=== PATIENT | male | born 1950 | race Caucasian/White ===

== ENCOUNTER 2024-10-09 10:53 | Inpatient (IN) | payer MEDICARE, OTHER, SELFPAY ==
[2024-10-09] VITALS (8 sets, daily range): BP systolic 133–168; BP diastolic 61–77; PULSE 54–62; RESP 16–18; TEMP 36.7–36.9; O2SAT 97–100
--- NOTE | 2024-10-09 13:26 | ED_ITS ---
HPI - Extremity Problem 2 General: Chief complaint: Extremity Problem,Nontraumatic Stated complaint: abd pain Time Seen by Provider: 10/09/24 13:25 History of Present Illness: 74-year-old male presents emergency room complaining of pain and swelling in his right foot. 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 He did have open reduction internal fixation on that foot when he was in [place] evidently about 3 years ago. He is unsure whether or not he has had a fever. He has had some abdominal discomfort which she has tolerated related to constipation. Its improved now. Denies any vomiting or diarrhea. No chest pain or shortness of breath Associated symptoms: Deny chest pain or fever(s) Related Data Home Medications Medication Instructions Recorded Confirmed amlodipine 2.5 mg tablet 2.5 mg PO DAILY 10/09/24 10/09/24 buprenorphine 8 mg-naloxone 2 mg 2 film buccal DAILY 10/09/24 10/09/24 sublingual film bupropion HCl 300 mg 24 hr tablet, 300 mg PO QAM 10/09/24 10/09/24 extended release dapagliflozin propanediol 10 mg 10 mg PO QAM 10/09/24 10/09/24 tablet (Farxiga) desvenlafaxine succinate 100 mg 100 mg PO DAILY 10/09/24 10/09/24 tablet,extended release 24 hr fluticasone propionate 50 2 spray intranasal DAILY 10/09/24 10/09/24 mcg/actuation nasal spray,suspension furosemide 40 mg tablet 40 mg PO DAILY 10/09/24 10/09/24 memantine 10 mg tablet 10 mg PO BID 10/09/24 10/09/24 ondansetron 4 mg disintegrating 4 mg PO Q8H 10/09/24 10/09/24 tablet pramipexole 0.5 mg tablet 0.5 mg PO BID 10/09/24 10/09/24 pregabalin 150 mg capsule 150 mg PO Q8H 10/09/24 10/09/24 tamsulosin 0.4 mg capsule 0.4 mg PO DAILY 10/09/24 10/09/24 Allergies Allergy/AdvReac Type Severity Reaction Status Date / Time No Known Allergies Allergy Verified 10/09/24 11:55 Review of Systems 2 Const: Denies: fever(s) or chills Card: Denies: chest pain Resp: Denies: dyspnea GI: Denies: abdominal pain : Denies: dysuria, urinary frequency or urinary urgency Musc: Reports: extremity pain and extremity swelling; Denies: neck pain or back pain PFSH ED 2 PFSH: Medical History Pressure ulcer BPH (benign prostatic hyperplasia) COPD (chronic obstructive pulmonary disease) Restless leg syndrome HTN (hypertension) Pre-diabetes Social History Smoking and tobacco/nicotine status: current every day tobacco/nicotine user Alcohol intake: never Substance/Drug Use: current Substance/Drug use frequency: Special occassions/opportunity only Substance/Drug use type: Marijuana Physical Exam 2 Const: GENERAL APPEARANCE: cooperative ORIENTATION/CONSCIOUSNESS: Yes awake, Yes oriented to person, Yes oriented to place and Yes oriented to time HENMT: COMMON NORMALS: normocephalic, atraumatic and hearing grossly normal bilaterally HEAD & SCALP: normocephalic and atraumatic Resp: COMMON NORMALS: normal respiratory effort, No retractions, No use of accessory muscles and clear to auscultation bilaterally AUSCULTATION: clear to auscultation bilaterally Cardio: COMMON NORMALS: regular rate, regular rhythm and No murmurs present (Cardio) RATE: regular rate RHYTHM: regular rhythm GI: COMMON NORMALS: Soft to palpation and No hepatosplenomegaly present A USCULTATION: Yes normoactive bowel sounds PALPATION: Yes Soft to palpation, No Tenderness to palpation present (GI), No Guarding due to palpation present (GI) and Yes No hepatosplenomegaly present Extremity: OTHER: Right foot is swollen way to the level of the malleolus. There is induration or redness the right second toe is extremely enlarged and swollen with a medial wound that is open I did not probe the wound at the time of exam. There is no purulent drainage. Skin is indurated. Right great toe is surgically absent. Neuro: SENSORIUM/ORIENTATION: Yes oriented to person, Yes oriented to place and Yes oriented to time Skin: COMMON NORMALS: no rashes or lesions noted GENERAL SKIN EXAM: no rashes or lesions noted Course 2 Vital Signs: Vital signs: Vital Signs Temperature 98.0 F 10/09/24 11:50 Pulse Rate 58 L 10/09/24 16:30 Respiratory Rate 18 10/09/24 15:24 Blood Pressure 145/73 10/09/24 16:30 Pulse Oximetry 100 10/09/24 16:30 Oxygen Delivery Me thod Nasal Cannula 10/09/24 15:24 Oxygen Flow Rate 3 10/09/24 15:24 MDM - Extremity (Nontraumatic) Medical Decision Making Admitted for cellulitis osteomyelitis cussed with the hospital started on linezolid and Zosyn. Consult podiatry. Dr. Marie seen the patient in the emergency room Lab Data I reviewed the patient's lab results. 10/09/24 13:23 10/09/24 13:23 Radiology Impressions Foot X-Ray 10/09/24 13:33 IMPRESSION: No evident radiographic findings of osteomyelitis. Given proximity of the wound to the phalanges of the 2nd digit, MRI would be warranted for more sensitive evaluation. Laboratory Results WBC 10.25 10^3/uL (3.29-11.43) 10/09/24 13:23 RBC 4.98 10^6/uL (3.85-5.65) 10/09/24 13:23 Hgb 13.60 g/dL (11.27-16.99) 10/09/24 13:23 Hct 43.0 % (37-53) 10/09/24 13:23 MCV 86.3 fl (82-101) 10/09/24 13:23 MCH 27.3 pg (27-33) 10/09/24 13:23 MCHC 31.6 g/dL (30-55) 10/09/24 13:23 RDW 14.9 % (12.1-15.1) 10/09/24 13:23 Plt Count 237 10^3/cmm (157-399) 10/09/24 13:23 MPV 9.9 fL (7.4-10.4) 10/09/24 13:23 Neut % (Auto) 82.9 % 10/09/24 13:23 Lymph % (Auto) 9.1 % 10/09/24 13:23 [place] % (Auto) 6.8 % 10/09/24 13:23 Eos % (Auto) 0.3 % 10/09/24 13:23 Baso % (Auto) 0.3 % 10/09/24 13:23 Neut # (Auto) 8.50 10^3/uL (1.8-7.7) H 10/09/24 13:23 Lymph # (Auto) 0.9 10^3/uL (0.8-4.8) 10/09/24 13:23 [place] # (Auto) 0.7 10^3/uL (0.2-0.9) 10/09/24 13:23 Eos # (Auto) 0.0 10^3/uL (0.0-0.8) 10/09/24 13:23 Baso # (Auto) 0.0 10^3/uL (0.0-0.1) 10/09/24 13:23 Nucleated RBC % (auto) 0 % 10/09/24 13:23 Nucleated RBCs # 0.0 /100WBC 10/09/24 13:23 ESR 35 mm/hr (0-10) H 10/09/24 13:23 Sodium 138 mmol/L (136-145) 10/09/24 13:23 Potassium 3.7 mmol/L (3.5-5.1) 10/09/24 13:23 Chloride 97 mmol/L (98-107) L 10/09/24 13:23 Carbon Dioxide 26 mmol/L (22-29) 10/09/24 13:23 Anion Gap 18.7 (5-19) 10/09/24 13:23 BUN 31 mg/dL (8-23) H 10/09/24 13:23 Creatinine 1.7 mg/dL (0.7-1.2) H 10/09/24 13:23 GFR Calculation Not Reportable 10/09/24 13:23 Glucose 92 mg/dL (65-115) 10/09/24 13:23 Estimat Average Glucose 100 10/09/24 13:23 Hemoglobin A1c 5.1 % (4.0-6.0) 10/09/24 13:23 Calculated Osmolality 292 mOsm/kg (285-295) 10/09/24 13:23 Lactic Acid 1.2 mmol/L (0.5-2.2) 10/09/24 13:23 Calcium 9.5 mg/dL (8.5-10.5) 10/09/24 13:23 Total Bilirubin 0.7 mg/dL (0.15-1.2) 10/09/24 13:23 AST 18 U/L (0-40) 10/09/24 13:23 ALT 19 U/L (0-41) 10/09/24 13:23 Alkaline Phosphatase 212 U/L (40-130) H 10/09/24 13:23 C-Reactive Protein 238.5 mg/L (0.0-4.9) H 10/09/24 13:23 Total Protein 8.2 g/dL (6.6-8.7) 10/09/24 13:23 Albumin 3.7 g/dL (3.5-5.2) 10/09/24 13:23 Globulin 4.5 g/dL (1.3-4.6) 10/09/24 13:23 Lipase 13 U/L (13-60) 10/09/24 13:23 Urine Color Yellow (Yellow) 10/09/24 13:23 Urine Appearance Clear (CLEAR) 10/09/24 13:23 Urine pH 6.0 (5-7) 10/09/24 13:23 Ur Specific [place] 1.024 (1.005-1.030) 10/09/24 13:23 Urine Protein 1+ (Negative) A 10/09/24 13:23 Urine Glucose (UA) 3+ (Normal) H 10/09/24 13:23 Urine Ketones 1+ (Negative) H 10/09/24 13:23 Urine Blood Negative (Negative) 10/09/24 13:23 Urine Nitrate Negative (Negative) 10/09/24 13:23 Urine Bilirubin Negative (Negative) 10/09/24 13:23 Urine Urobilinogen 1.0 mg/dL (Negative) 10/09/24 13:23 Ur Leukocyte Esterase Negative (Negative) 10/09/24 13:23 Urine RBC 0-4 /hpf (0-2) H 10/09/24 13:23 Urine WBC 5-10 /hpf (0-5) H 10/09/24 13:23 Ur Squamous Epith Cells 0-4 /hpf (0-5) H 10/09/24 13:23 Amorphous Sediment Not Reportable 10/09/24 13:23 Urine Bacteria 1+ /hpf (NONE) H 10/09/24 13:23 Urine Mucus 1+ /hpf 10/09/24 13:23 All radiology interpretation(s) finalized by discharge Discharge Plan Discharge Patient Disposition: Admitted As Inpatient Clinical Impression: Acute osteomyelitis of right foot, 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, Cellulitis of right foot, Diabetic foot infection Condition: Stable Prescriptions: No Action furosemide 40 mg tablet 40 mg PO DAILY amlodipine 2.5 mg tablet 2.5 mg PO DAILY pramipexole 0.5 mg tablet 0.5 mg PO BID tamsulosin 0.4 mg capsule 0.4 mg PO DAILY ondansetron 4 mg tablet,disintegrating 4 mg PO Q8H fluticasone propionate 50 mcg/actuation spray,suspension 2 spray INTRANASAL DAILY bupropion HCl 300 mg tablet extended release 24 hr 300 mg PO QAM memantine 10 mg tablet 10 mg PO BID pregabalin 150 mg capsule 150 mg PO Q8H desvenlafaxine succinate 100 mg tablet extended release 24 hr 100 mg PO DAILY buprenorphine-naloxone 8-2 mg film 2 film buccal DAILY dapagliflozin propanediol [Farxiga] 10 mg tablet 10 mg PO QAM Referrals: Arnaldo Farr DO [Emergency Provider] - Coding Level of Care Code ED Prevention Coordinator for [facility] [place]
[2024-10-09 13:29] LABS: Basophils % 0.3 %; Eosinophils % 0.3 %; Lymphocytes # 0.9 10^3/uL (0.8-4.8); Lymphocytes % 9.1 %; Mean Corpuscular HGB Conc 31.6 g/dL (30-55); Mean Corpuscular Hemoglobin 27.3 pg (27-33); Mean Corpuscular Volume 86.3 fl (82-101); Mean Platelet Volume 9.9 fL (7.4-10.4); Monocytes # 0.7 10^3/uL (0.2-0.9); Monocytes % 6.8 %; Neutrophils % 82.9 %; Nucleated Red Blood Cells % 0 %; Platelet Count 237 10^3/cmm (157-399); Red Blood Count 4.98 10^6/uL (3.85-5.65); Red Cell Distribution Width 14.9 % (12.1-15.1); White Blood Count 10.25 10^3/uL (3.29-11.43)
--- NOTE | 2024-10-09 13:33 | XRR_ITS ---
PROCEDURE INFORMATION: Exam: XR Right Foot Exam date and time: 10/09/2024 1:51 PM Age: 74 years old Clinical indication: Prior surgery; Surgery date: 6+ months; Patient HX: PT C/O right foot pain, PT had great toe removed. PT has small hole in 2nd toe on right foot. PT C/O toe pain x2 weeks. ; Additional info: Pain swelling open wound TECHNIQUE: Imaging protocol: Radiologic exam of the right foot. Views: 3 or more views. COMPARISON: No relevant prior studies available. FINDINGS: Bones/joints: Amputation changes of the 1st digit through the metatarsal. Dislocation of the 2nd digit at the DIP. Intact metallic plate spanning the navicular, 1st cuneiform, and base of the 2nd metatarsal. Residual osseous structures are intact. Negative for fracture. No irregular osseous erosions. Soft tissues: Wound noted at the 2nd toe in close approximation to the phalanges of the 2nd digit. Soft tissue swelling around the 2nd digit. XR/XR foot RT min 3V* [id number] IMPRESSION: No evident radiographic findings of osteomyelitis. Given proximity of the wound to the phalanges of the 2nd digit, MRI would be warranted for more sensitive evaluation.
[2024-10-09 13:44] LABS: Erythrocyte Sedimentation Rate 35 mm/hr (0-10)
[2024-10-09 13:46] LABS: Alanine Aminotransferase 19 U/L (0-41); Albumin Level 3.7 g/dL (3.5-5.2); Alkaline Phosphatase 212 U/L (40-130); Anion Gap 18.7 (5-19); Aspartate Amino Transferase 18 U/L (0-40); Blood Urea Nitrogen 31 mg/dL (8-23); Calcium 9.5 mg/dL (8.5-10.5); Carbon Dioxide 26 mmol/L (22-29); Chloride 97 mmol/L (98-107); Creatinine Clr Calc Pharmacy 49.9576; Globulin 4.5 g/dL (1.3-4.6); Glucose 92 mg/dL (65-115); Lipase 13 U/L (13-60); Osmolality Calculated 292 mOsm/kg (285-295); Potassium 3.7 mmol/L (3.5-5.1); Sodium 138 mmol/L (136-145); Total Bilirubin 0.7 mg/dL (0.15-1.2); Total Protein 8.2 g/dL (6.6-8.7)
[2024-10-09 13:52] LABS: C Reactive Protein 238.5 mg/L (0.0-4.9); Lactic Sepsis W/Reflex 1.2 mmol/L (0.5-2.2)
[2024-10-09 14:32] LABS: Bilirubin Urine Negative (Negative); Blood Urine Negative (Negative); Glucose Urine UA 3+ (Normal); Ketones Urine 1+ (Negative); Leukocyte Esterase Urine Negative (Negative); Nitrate Urine Negative (Negative); Protein Urine 1+ (Negative); Specific Gravity, Urine 1.024 (1.005-1.030); Urine Appearance Clear (CLEAR); Urine Color Yellow (Yellow)
[2024-10-09 14:52] LABS: Add Urine Microscopic? YES; Bacteria Urine 1+ /hpf; Mucus Urine 1+ /hpf; RBC Urine 0-4 /hpf (0-2); Squamous Epithelial Cell Urine 0-4 /hpf (0-5); UA Manual Slide Review YES
[2024-10-09] MEDS: piperacillin-tazobactam 3.375 GM in sodium chloride 0.9% (plus) 50 ML IV ×2 (14:59→21:27)
[2024-10-09] MEDS: linezolid premix 600 MG/300 ML PREMIX 300 MG IV (15:01)
--- NOTE | 2024-10-09 15:03 | P.HP_ITS ---
Providers/Chief Complaint 2 Chief Complaint: abd pain History of Present Illness Pleasant 74-year-old gentleman with history of borderline diabetes, recently diagnosed hypertension, started on amlodipine, restless leg syndrome, BPH, COPD on chronic 3 L of oxygen, had quit smoking for a long time but recently picked it up again, sacral pressure sore, comes in due to having close to about a week of erythema in his right second toe spreading up proximally over the foot, reports yesterday he woke up to there being fairly severe edema, also with a wound on the distal big toe with some drainage. Denies fever or chills. Had transient mild abdominal discomfort initially in ER, although this has resolved. In ER he is afebrile, with noted elevated inflammatory markers ESR 35, CRP 238.5, with erythema and severe swelling of the right 2nd toe with a wound, small amount of purulent drainage, as well as swelling and erythema of distal right foot. Foot x-ray obtained, pending, on initial read there is prior ray amputation of the first digit on the right foot, pathological dislocation of the distal phalanx of the second toe, pending official read. Podiatry is consulted. Blood cultures were obtained, he is started on linezolid and Zosyn. Review of Systems 2 Const: Denies: fever(s), chills, body aches or malaise ENMT: Denies: throat pain, oral sores or ear or mastoid pain Card: Denies: chest pain, edema, pre-syncope or dyspnea on exertion Resp: Denies: dyspnea, productive cough, change in phlegm color or hemoptysis GI: Denies: abdominal pain, nausea, vomiting, diarrhea, constipation, hematochezia or melena : Denies: flank pain, difficulty urinating, urinary frequency or hematuria Musc: Reports: extremity pain, extremity swelling and joint swelling; Denies: back pain Skin/Breast: Reports: rash Neuro: Denies: headache(s), dizziness or confusion Medications/Allergies Home Medications Medication Instructions Recorded Confirmed Last Taken Type amlodipine 2.5 mg tablet 2.5 mg PO DAILY 10/09/24 10/09/24 Unknown History buprenorphine 8 mg-naloxone 2 mg 2 film buccal DAILY 10/09/24 10/09/24 Unknown History sublingual film bupropion HCl 300 mg 24 hr tablet, 300 mg PO QAM 10/09/24 10/09/24 Unknown History extended release dapagliflozin propanediol 10 mg 10 mg PO QAM 10/09/24 10/09/24 Unknown History tablet (Farxiga) desvenlafaxine succinate 100 mg 100 mg PO DAILY 10/09/24 10/09/24 Unknown History tablet,extended release 24 hr fluticasone propionate 50 2 spray intranasal DAILY 10/09/24 10/09/24 Unknown History mcg/actuation nasal spray,suspension furosemide 40 mg tablet 40 mg PO DAILY 10/09/24 10/09/24 Unknown History memantine 10 mg tablet 10 mg PO BID 10/09/24 10/09/24 Unknown History ondansetron 4 mg disintegrating 4 mg PO Q8H 10/09/24 10/09/24 Unknown History tablet pramipexole 0.5 mg tablet 0.5 mg PO BID 10/09/24 10/09/24 Unknown History pregabalin 150 mg capsule 150 mg PO Q8H 10/09/24 10/09/24 Unknown History tamsulosin 0.4 mg capsule 0.4 mg PO DAILY 10/09/24 10/09/24 Unknown History Allergies Allergy/AdvReac Type Severity Reaction Status Date / Time No Known Allergies Allergy Verified 10/09/24 11:55 PFSH Acute 2 PFSH: Medical History Pressure ulcer BPH (benign prostatic hyperplasia) COPD (chronic obstructive pulmonary disease) Restless leg syndrome HTN (hypertension) Pre-diabetes Social History Smoking and tobacco/nicotine status: current every day tobacco/nicotine user Alcohol intake: never Substance/Drug Use: current Substance/Drug use frequency: Special occassions/opportunity only Substance/Drug use type: Marijuana Vitals/I&O/Wt Last Vital Signs Temp 98.0 F 10/09/24 11:50 Pulse 62 10/09/24 11:50 Resp 18 10/09/24 11:50 BP 133/63 10/09/24 11:50 Pulse Ox 98 10/09/24 11:50 O2 Del Method Room Air 10/09/24 11:50 Weight last 48 hrs Weight 108.409 kg Physical Exam 2 Const: COMMON NORMALS: patient oriented x3 and alert GENERAL APPEARANCE: c ooperative ORIENTATION/CONSCIOUSNESS: Yes awake HENMT: COMMON NORMALS: oropharynx normal Neck/C-Spine: COMMON NORMALS: no JVD Resp: COMMON NORMALS: normal respiratory effort and clear to auscultation bilaterally AUSCULTATION: clear to auscultation bilaterally Cardio: COMMON NORMALS: no JVD, regular rhythm, S1 normal heart sound present, S2 normal heart sound present and No murmurs present (Cardio) RHYTHM: regular rhythm HEART SOUNDS: S1 normal heart sound present and S2 normal heart sound present GI: COMMON NORMALS: Normal to inspection, nondistended, normoactive bowel sounds present, Soft to palpation and non-tender PALPATION: Yes Soft to palpation Extremity: NARRATIVE EXTREMITY EXAM: Prior ray amputation of the first right toe, second right toe deformity with dislocation of the distal phalanx. Swelling, erythema, small purulent drainage. Neuro: COMMON NORMALS: patient oriented x3 and moves all extremities S ENSORIUM/ORIENTATION: Yes alert Skin: NARRATIVE SKIN EXAM: Erythema, significant edema distal right foot, with edema, ulceration, small amount of purulent drainage over the second right toe. Data 10/09/24 13:23 10/09/24 13:23 Micro: Microbiology 10/09/24 13:50 Blood Culture - Preliminary Blood SPECIMEN COLLECTED 10/09/24 13:45 Blood Culture - Preliminary Blood SPECIMEN COLLECTED A&P Assessment and plan (1) Diabetic foot infection: Reports developing problems in the right foot over about a week, and over the last day with severe swelling after distal foot, second toe with swelling, wound and purulent drainage. Afebrile, with reviewed inflammatory markers ESR 35, CRP 238.5, with erythema and severe swelling of the right 2nd toe with a wound, small amount of purulent drainage, as well as swelling and erythema of distal right foot. Foot x-ray obtained, pending, on my interpretation there is prior ray amputation of the first digit on the right foot, pathological dislocation of the distal phalanx of the second toe, soft tissue edema, pending official read. Podiatry is consulted. Obtain wound cultures. Follow-up blood cultures. Continue linezolid, Zosyn, monitor for risk of agranulocytosis. Fall precautions. Up with assistance. Monitor blood glucose, optimize control,/scale insulin. Check A1c. Plan MECHE versus CKD: Creatinine 1.7. Follow-up renal function. Limit nephrotoxins. Abnormal urinalysis: UA with 5-10 WBC. Negative nitrate, negative leukocyte Estrace, trace bacteria. No symptoms. He is on antibiotics as above. BPH: Continue tamsulosin Restless leg syndrome HTN: Monitor blood pressures. Cardiac diet. Prediabetes: Reports prediabetes, is on Farxiga. Hold oral meds for now. Monitor glucose, low-dose sliding scale insulin. COPD: Not in exacerbation, normally on 3 L oxygen. DuoNebs, budesonide. Smoking addiction: Discussed cessation for 3 minutes, he had quit for a long time, but has restarted recently. Knows that he should really quit. He is okay with starting nicotine replacement in the hospital. Pressure sore: Sacral pressure ulcer. Reposition frequently. Wound care. Goals of care discussion: In case of cardiopulmonary arrest he would want resuscitation. In case could not make his own decisions names his daughter Mitra Baumann as a surrogate decision-maker, her phone number is [phone]. Attestations 2 Medical Necessity Statement*: Admission of over 2 midnights anticipated for assessment and management of diabetic foot infection with DIP joint destruction, dislocation of distal phalanx of the second toe of the right foot, with purulent drainage, significant cellulitis over distal foot and gentleman with MECHE versus CKD with underlying medical problems as above. and High MDM includes amount and/or complexity of data reviewed/ordered [ resulted lab(s)/test(s), ordered lab(s)/test(s), independent test interpretation and other healthcare professional discussion] and described risk of complication, morbidity or mortality of management as documented Diagnoses Diabetic foot infection E11.628; L08.9
--- NOTE | 2024-10-09 15:25 | P.CONIM_ITS ---
Providers/Reason For Consult 2 Consulting Physician/Specialty*: José Luis Marie D.P.M. Reason for Consult*: Right diabetic foot infection History of Present Illness History of Present Illness Ben Mendoza is a 74 year old male presents with a wound to the right great toe with redness streaking to the foot and an obvious gross deformity to the second toe states has been that way for several days when he saw increased redness and foul drainage he presented to the emergency department. He has a history of right foot first ray amputation and he has a history of arthrosis of the right tarsometatarsal joint with intact hardware. Patient smokes cigarettes. Other past medical history significant for hypertension, borderline diabetes, benign prostatic hyperplasia, COPD, he is on 3 L of oxygen. Has made several attempts at smoking cessation but has been unsuccessful. Accompanied by his brother I also spoke with his daughter who lives in [place] when the patient's phone was on speaker phone. Review of Systems 2 General: Reports: 10 or more systems reviewed and unremarkable except in HPI and below Const: Denies: fever(s) or chills Eyes: Denies: change in vision Card: Denies: chest pain or palpitations Resp: Denies: dyspnea or productive cough GI: Denies: abdominal pain, nausea or vomiting : Denies: flank pain Musc: Reports: extremity swelling, joint stiffness and deformity Skin/Breast: Reports: erythema, sores, changes in skin color, dry skin, nail changes and change in hair Neuro: Reports: numbness in extremities, sensory changes and difficulty walking Psych: Denies: suicidal ideation Endo: Denies: change in body appearance Harry/Lymph: Denies: tender lymph nodes Medications/Allergies Home Medications Medication Instructions Recorded Confirmed Last Taken Type amlodipine 2.5 mg tablet 2.5 mg PO DAILY 10/09/24 10/09/24 Unknown History buprenorphine 8 mg-naloxone 2 mg 2 film buccal DAILY 10/09/24 10/09/24 Unknown History sublingual film bupropion HCl 300 mg 24 hr tablet, 300 mg PO QAM 10/09/24 10/09/24 Unknown History extended release dapagliflozin propanediol 10 mg 10 mg PO QAM 10/09/24 10/09/24 Unknown History tablet (Farxiga) desvenlafaxine succinate 100 mg 100 mg PO DAILY 10/09/24 10/09/24 Unknown History tablet,extended release 24 hr fluticasone propionate 50 2 spray intranasal DAILY 10/09/24 10/09/24 Unknown History mcg/actuation nasal spray,suspension furosemide 40 mg tablet 40 mg PO DAILY 10/09/24 10/09/24 Unknown History memantine 10 mg tablet 10 mg PO BID 10/09/24 10/09/24 Unknown History ondansetron 4 mg disintegrating 4 mg PO Q8H 10/09/24 10/09/24 Unknown History tablet pramipexole 0.5 mg tablet 0.5 mg PO BID 10/09/24 10/09/24 Unknown History pregabalin 150 mg capsule 150 mg PO Q8H 10/09/24 10/09/24 Unknown History tamsulosin 0.4 mg capsule 0.4 mg PO DAILY 10/09/24 10/09/24 Unknown History Allergies Allergy/AdvReac Type Severity Reaction Status Date / Time No Known Allergies Allergy Verified 10/09/24 11:55 PFSH Acute 2 PFSH: Medical History Pressure ulcer BPH (benign prostatic hyperplasia) COPD (chronic obstructive pulmonary disease) Restless leg syndrome HTN (hypertension) Pre-diabetes Social History Smoking and tobacco/nicotine status: current every day tobacco/nicotine user Alcohol intake: never Substance/Drug Use: current Substance/Drug use frequency: Special occassions/opportunity only Substance/Drug use type: Marijuana Vitals/I&O/Wt Last Vital Signs Temp 98.0 F 10/09/24 11:50 Pulse 62 10/09/24 11:50 Resp 18 10/09/24 11:50 BP 133/63 10/09/24 11:50 Pulse Ox 98 10/09/24 11:50 O2 Del Method Room Air 10/09/24 11:50 Weight last 48 hrs Weight 239 lb Physical Exam 2 Narrative: GENERAL: Patient is alert and oriented ?3 and in no acute distress. The following is a focused bilateral lower extremity exam. Accompanied by his brother VASCULAR: Dorsalis pedis diminished bilaterally. Posterior tibial arteries diminished bilaterally. Capillary refill time less delayed approximately 5 seconds digits 2 through 5 in the right and 1 through 5 to the left. Calf is supple and nontender proximally and distally. Decreased pedal hair growth. Edema to the right second toe. NEUROLOGICAL: Protective sensation intact 0/10 sites, tested with [place] monofilament to bilateral feet. DERMATOLOGICAL: Full-thickness wound at the medial aspect of the left second toe at the level of the distal interphalangeal joint probes directly to bone, erythema encompassing the entire right second toe with some streaking to the right forefoot, there is no erythema or cellulitis at the level of the right ankle. MUSCULOSKELETAL: Status post first ray amputation right foot. 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 Hammertoes of lesser digits left foot. Hammertoe of lesser digits right foot. Const: COMMON NORMALS: no acute distress, patient oriented x3 and alert HENMT: COMMON NORMALS: normocephalic HEAD & SCALP: normocephalic Eye: COMMON NORMALS: Equal, round and reactive pupils present PUPIL: Yes Equal, round and reactive pupils present Lymph: LYMPHATIC: lymphedema Resp: COMMON NORMALS: normal respiratory effort, No retractions and No use of accessory muscles Cardio: COMMON NORMALS: regular rate RATE: regular rate Extremity: COMMON NORMALS: no calf tenderness; negative for no pedal edema GENERAL: Yes deformity Neuro: COMMON NORMALS: patient oriented x3 SENSORIUM/ORIENTATION: Yes alert SENSORY EXAM: Yes extremities MONOFILAMENT EXAM PERFORMED: Yes MOTOR EXAM: 5/5 motor strength present throughout Psych: COMMON NORMALS: cooperative Skin: WOUNDS: Yes wounds noted NAILS: discolored, dystrophic and yellow and thickened Data 10/09/24 13:23 10/09/24 13:23 Micro: Microbiology 10/09/24 13:50 Blood Culture - Preliminary Blood SPECIMEN COLLECTED 10/09/24 13:45 Blood Culture - Preliminary Blood SPECIMEN COLLECTED A&P Assessment and plan (1) Cellulitis of right foot: (2) 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 The wound was debrided of hyperkeratotic rim and devitalized and fibrotic tissue down to bone, being the deepest level of debridement. Predebridement measurements: 3 mm x 3 mm x 4 mm Postdebridement measurements: 4 mm x 4 mm x 5 mm Hemostasis: Pressure Irrigation: sterile saline Dressing: Betadine wet-to-dry Estimated Blood Loss: minimal Plan 74-year-old male presents with acute osteomyelitis of the right second toe Right foot x-ray taken in emergency department 10/09/2024 per my interpretation shows erosive changes at the head of the intermediate phalanx medially with bony destruction adjacent to soft tissue defect, complete dislocation of right second toe distal interphalangeal joint with distal phalanx translated laterally. Patient is afebrile, no leukocytosis. ESR 35 C-reactive protein to 38.5 mg/L Patient admitted to the hospital service for empiric IV antibiotics and surgical intervention. Bedside debridement as above, wound cultures taken in emergency department of the right second toe wound sent to microbiology. Discussed salvage efforts versus amputation for source control of the right second toe patient is wishing to proceed with second toe amputation as a more viable option in his opinion he does not want to attempt to manage with antibiotics and fear of ascending infection jeopardizing his foot. Advised patient that amputation of the second toe is not a guarantee that source control will be obtained and that a higher level of infection and subsequent imitation could develop. Empiric IV antibiotics Recommend vascular studies of the lower extremities N.p.o. at midnight Anticipating right second toe amputation tomorrow 10/10/2024 potentially at noon pending OR availability Podiatry will follow Consult Attestations 2 Medical Necessity Statement: Requires admission to the hospital service for empiric IV antibiotics and surgical intervention right foot infection. 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
[2024-10-09 16:08] LABS: Estmated Average Glucose 100; Hemoglobin A1C 5.1 % (4.0-6.0)
[2024-10-09] MEDS: enoxaparin 40 mg/0.4 mL Syringe SUBCUT (17:39)
[2024-10-09] MEDS: nicotine 14 mg Patch 1 PATCH TRANSDERMA (17:40)
[2024-10-09 18:09] LABS: Glucose Point of Care 108 mg/dL (70-110)
[2024-10-09] MEDS: budesonide 0.5 mg/2 mL Neb 0.25 MG INHALATION (19:32)
[2024-10-09] MEDS: ipratropium-albuterol 3 mL Neb INHALATION (19:32)
[2024-10-09 21:18] LABS: Glucose Point of Care 199 mg/dL (70-110)
[2024-10-09] MEDS: insulin lispro 100 unit/1 mL SUBCUT (21:27)
[2024-10-09] MEDS: acetaminophen 325 mg Tablet 650 MG PO (23:30)
[2024-10-10] VITALS (20 sets, daily range): BP systolic 115–184; BP diastolic 63–95; PULSE 45–62; RESP 14–19; TEMP 36.2–37; O2SAT 96–100
[2024-10-10] MEDS: linezolid premix 600 MG/300 ML PREMIX 300 MG IV (01:37)
[2024-10-10] MEDS: ipratropium-albuterol 3 mL Neb INHALATION ×4 (01:57→19:47)
[2024-10-10 03:39] LABS: Basophils % 0.4 %; Eosinophils # 0.1 10^3/uL (0.0-0.8); Hematocrit 36.8 % (37-53); Lymphocytes # 1.3 10^3/uL (0.8-4.8); Lymphocytes % 16.3 %; Mean Corpuscular Hemoglobin 27.3 pg (27-33); Monocytes # 0.7 10^3/uL (0.2-0.9); Monocytes % 9.4 %; Neutrophils # 5.56 10^3/uL (1.8-7.7); Neutrophils % 72.6 %; Nucleated Red Blood Cells % 0 %; Platelet Count 204 10^3/cmm (157-399); Red Blood Count 4.18 10^6/uL (3.85-5.65); White Blood Count 7.66 10^3/uL (3.29-11.43)
[2024-10-10 03:59] LABS: Anion Gap 13.2 (5-19); Blood Urea Nitrogen 23 mg/dL (8-23); Calcium 8.7 mg/dL (8.5-10.5); Carbon Dioxide 27 mmol/L (22-29); Chloride 101 mmol/L (98-107); Creatinine Clr Calc Pharmacy 65.3291; Glucose 129 mg/dL (65-115); Osmolality Calculated 291 mOsm/kg (285-295); Potassium 3.2 mmol/L (3.5-5.1); Sodium 138 mmol/L (136-145)
[2024-10-10] MEDS: piperacillin-tazobactam 3.375 GM in sodium chloride 0.9% (plus) 50 ML IV ×2 (05:27→21:40)
[2024-10-10 06:56] LABS: Glucose Point of Care 139 mg/dL (70-110)
[2024-10-10] MEDS: budesonide 0.5 mg/2 mL Neb 0.25 MG INHALATION ×2 (08:53→19:47)
[2024-10-10] MEDS: nicotine 14 mg Patch 1 PATCH TRANSDERMA (09:35)
[2024-10-10] MEDS: acetaminophen 325 mg Tablet 650 MG PO (09:35)
[2024-10-10] MEDS: tamsulosin 0.4 mg Capsule PO (09:35)
--- NOTE | 2024-10-10 10:00 | PC.CHAP ---
Pastoral Care Encounter/Spiritual Assessment Type of Contact [] Declined advanced manager visit [] Patient/Family/Request visit [] Outpatient visit [] Follow-up visit [] Physician referral [] Code/Alert [x] Routine visit [] Staff referral [] Actively dying [x] Patient sleeping [] Family support [] [] Out of room [] Palliative care [] [] Receiving care in room [] Pre-surgical visit [] Trauma [] Long length of stay [] ICU visit [] Other: Relational/Emotional Strength [] Patient feels connected with others/family/visitors/staff [] Distress [] Loneliness/isolation [] Abandonment Spirituality of Patient [] Person of Lisa [] Attends Confucianism of their Lisa [] Believes in Prayer [] Reads Bible or Mosque materials [] There are Spiritual issues to be addressed Teacher Selection Specialist Interventions [x] Prayer [] Active listening [] Non-anxious presence [] Spiritual/emotional support [] Crisis/trauma care [] Spiritual counseling [] Bereavement support [] Provided bereavement packet [] Provided Bible/devotional materials [] Provided toy/stuffed animal, coloring book to patient or family member [] Provided Communion [] Anointing/[place] [] Salvation [] Completed spiritual assessment [] Other: Impact on Illness or Injury [] Angry [] Fearful [] Anxious [] Often cries [] Exhaustion [] Unable to work [] Unable to attend mandaeism [] Unable to walk/stand [] Unable to read [] Unable to drive [] Unable to eat/drink [] Unable to sleep [] Unable to be with family [] Patient intubated [] Other: Summary Time spent with patient
--- NOTE | 2024-10-10 10:19 | PC.SOCIAL ---
IMM Update Pg. 2 of IMM updated. Initialed, dated, and timed. Copy provided at bedside.
--- NOTE | 2024-10-10 12:01 | P.HPUD_ITS ---
Surgery/Procedure H&P Update DATE OF PROCEDURE: October 10, 2024 DATE H&P PERFORMED: 10/09/24 H&P UPDATE INFORMATION: I have reviewed H&P completed within last 30 days, I have examined patient prior to procedure, No changes to prior documentation and H&P is in [facility] EMR on date indicated PLANNED PROCEDURE: Operation Date: 10/10/24 13:20 Proposed Procedures p Right Second toe Amputation(Right) - José Luis Marie DPM
--- NOTE | 2024-10-10 12:05 | P.ANESASSM_ITS ---
Pre-Anesthetic Assessment Height/Weight: Height 6 ft Weight 238 lb 9 oz Temp Pulse Resp BP Pulse Ox O2 Del Method O2 Flow Rate 97.2 F L 54 L 18 170/73 99 Nasal Cannula 2 10/10/24 12:00 10/10/24 12:00 10/10/24 12:00 10/10/24 12:00 10/10/24 12:00 10/10/24 12:00 10/10/24 12:00 Preop Diagnosis: Osteomyelitis of the foot Operation Date: 10/10/24 13:20 Proposed Procedures p Right Second toe Amputation(Right) - José Luis Marie DPM Was Beta Benjy taken within 24 hours: N/A Was Clonidine taken within 24 hours: N/A Last intake: Intake Last Liquid Date 10/09/24 Last Solid Date 10/09/24 Social Tobacco and No alcohol Exam alert, oriented x 3, clear to auscultation bilaterally and regular rate & rhythm Airway Submandibular: within normal limits Cervical ROM: within normal limits Mallampati: Class III Dentition: other (Edentulous) Anesthetic Plan ASA status: 3 Anesthesia: MAC Other: Patient admitted yesterday for osteomyelitis of the right foot Denies any issues with anesthesia in the past NPO since yesterday History of hypertension on amlodipine Current smoker, on 3 L O2 at baseline Labs reviewed from today. K+ 3.2 Plan for MAC anesthetic with local via surgeon Medications/Allergies Home Medications Medication Instructions Recorded Confirmed Last Taken Type amlodipine 2.5 mg tablet 2.5 mg PO DAILY 10/09/24 10/09/24 Unknown History buprenorphine 8 mg-naloxone 2 mg 2 film buccal DAILY 10/09/24 10/09/24 Unknown History sublingual film bupropion HCl 300 mg 24 hr tablet, 300 mg PO QAM 10/09/24 10/09/24 Unknown History extended release dapagliflozin propanediol 10 mg 10 mg PO QAM 10/09/24 10/09/24 Unknown History tablet (Farxiga) desvenlafaxine succinate 100 mg 100 mg PO DAILY 10/09/24 10/09/24 Unknown History tablet,extended release 24 hr fluticasone propionate 50 2 spray intranasal DAILY 10/09/24 10/09/24 Unknown History mcg/actuation nasal spray,suspension furosemide 40 mg tablet 40 mg PO DAILY 10/09/24 10/09/24 Unknown History memantine 10 mg tablet 10 mg PO BID 10/09/24 10/09/24 Unknown History ondansetron 4 mg disintegrating 4 mg PO Q8H 10/09/24 10/09/24 Unknown History tablet pramipexole 0.5 mg tablet 0.5 mg PO BID 10/09/24 10/09/24 Unknown History pregabalin 150 mg capsule 150 mg PO Q8H 10/09/24 10/09/24 Unknown History tamsulosin 0.4 mg capsule 0.4 mg PO DAILY 10/09/24 10/09/24 Unknown History Allergies Allergy/AdvReac Type Severity Reaction Status Date / Time No Known Allergies Allergy Verified 10/09/24 11:55 Current Medications Generic Name Dose Route Start Last Admin Trade Name Freq PRN Reason Stop Dose Admin Acetaminophen 650 mg 10/09/24 17:17 10/10/24 09:35 Acetaminophen 325 Mg Tablet PO 650 mg Q6H PRN Administration Mild/Mod Pain Or Temp >/= 101 Albuterol/Ipratropium 3 ml 10/09/24 20:00 10/10/24 08:53 Ipratropium-Albuterol 3 Ml Neb INHALATION 3 ml Q6H.RESP IVAN Administration Budesonide 0.25 mg 10/09/24 20:00 10/10/24 08:53 Budesonide 0.5 Mg/2 Ml Neb INHALATION 0.25 mg BID.RESPIRATORY IVAN Administration Enoxaparin Sodium 40 mg 10/09/24 17:17 10/09/24 17:39 Enoxaparin 40 Mg/0.4 Ml Syringe SUBCUT 40 mg Q24H IVAN Administration Piperacillin Sod/Tazobactam 50 mls @ 12.5 mls/hr 10/09/24 22:00 10/10/24 09:36 Sod 3.375 gm/ Sodium Chloride IV Infused Q8H IVAN Infusion Protocol Linezolid 600 mg in 300 mls @ 300 mls/hr 10/10/24 02:00 10/10/24 02:46 Zyvox Premix IV Infused Q12H IVAN Infusion Protocol Insulin Human Lispro 0 unit 10/09/24 18:00 10/10/24 08:03 Insulin Lispro 100 Unit/1 Ml SUBCUT Not Given WM&BEDTIME IVAN Protocol Nicotine 1 patch 10/09/24 17:17 10/10/24 09:35 Nicotine 14 Mg Patch TRANSDERMA 1 patch DAILY IVAN Administration Tamsulosin HCl 0.4 mg 10/10/24 09:00 10/10/24 09:35 Tamsulosin 0.4 Mg Capsule PO 0.4 mg DAILY IVAN Administration [facility] Anesthesia Medical History Pressure ulcer BPH (benign prostatic hyperplasia) COPD (chronic obstructive pulmonary disease) Restless leg syndrome HTN (hypertension) Pre-diabetes Social History Smoking and tobacco/nicotine status: current every day tobacco/nicotine user Alcohol intake: never Substance/Drug Use: current Substance/Drug use frequency: Special occassions/opportunity only Substance/Drug use type: Marijuana Data Anesthesia 10/10/24 02:32 10/10/24 02:32 Short CBC 10/09/24 10/10/24 Range/Units 13:23 02:32 WBC 10.25 7.66 (3.29-11.43) 10^3/uL Hgb 13.60 11.40 (11.27-16.99) g/dL Hct 43.0 36.8 L (37-53) % MCV 86.3 88.0 (82-101) fl Plt Count 237 204 (157-399) 10^3/cmm Neut % (Auto) 82.9 72.6 % Neut # (Auto) 8.50 H 5.56 (1.8-7.7) 10^3/uL BMP 10/09/24 10/10/24 13:23 02:32 Sodium 138 138 Potassium 3.7 3.2 L Chloride 97 L 101 Carbon Dioxide 26 27 BUN 31 H 23 Creatinine 1.7 H 1.3 H Glucose 92 129 H Calcium 9.5 8.7 Liver Function 10/09/24 Range/Units 13:23 Total Bilirubin 0.7 (0.15-1.2) mg/dL AST 18 (0-40) U/L ALT 19 (0-41) U/L Alkaline Phosphatase 212 H (40-130) U/L Albumin 3.7 (3.5-5.2) g/dL Urine 10/09/24 Range/Units 13:23 Urine Color Yellow (Yellow) Urine Appearance Clear (CLEAR) Urine pH 6.0 (5-7) Ur Specific [place] 1.024 (1.005-1.030) Urine Protein 1+ A (Negative) Urine Glucose (UA) 3+ H (Normal) Urine Ketones 1+ H (Negative) Urine Nitrate Negative (Negative) Urine Bilirubin Negative (Negative) Ur Leukocyte Esterase Negative (Negative) Urine RBC 0-4 H (0-2) /hpf Urine WBC 5-10 H (0-5) /hpf Coags 10/09/24 13:23 ESR 35 H C-Reactive Protein 238.5 H Microbiology 10/09/24 13:50 Blood Culture - Preliminary Blood SPECIMEN COLLECTED 10/09/24 13:45 Blood Culture - Preliminary Blood SPECIMEN COLLECTED Cardiac Studies: 2 No Data to Display
[2024-10-10 12:09] LABS: Glucose Point of Care 125 mg/dL (70-110)
[2024-10-10] MEDS: sodium chloride 0.9% 1,000 ML 30 ML IV (12:09)
[2024-10-10] MEDS: lidocaine 1% 10 ML INJ 20 ML XX (12:30)
--- NOTE | 2024-10-10 12:50 | P.OP_ITS ---
Operative Report Date of procedure: October 10, 2024 Pre-op diagnosis: Acute osteomyelitis right second toe Post-op diagnosis: Acute osteomyelitis right second toe Post-op findings: Devitalized bone right second toe intermediate phalanx Procedure done: Right second toe amputation. CPT code 90370 Implants: 3-0 Vicryl, 4-0 nylon Specimens removed/disposition: Cultures are already taken Pathology: Right second toe sent to pathology for permanent Surgeon: José Luis Marie DPM Director Day Care [facility]: [facility] Estimated blood loss: 10 mL 2 minutes IV fluids: None Urine output: None Complications: None Brief History: Presented with cellulitis, open wound probes to bone right second toe cellulitis streaking to the right midfoot patient opted for more aggressive source control and requested amputation of the right second toe. Procedure: Under mild sedation the patient was brought to the operating room and remained on the gurney in supine position. A timeout was performed. Anesthesia was then administered by the anesthesia service. Local anesthesia was injected by myself consisting of 20 cc of 1% lidocaine plain in a right second ray block fashion. Well-padded pneumatic tourniquet applied to the right ankle. The right lower extremity was scrubbed, prepped and draped utilizing normal aseptic technique. Right ankle tourniquet was then inflated to 250 mmHg. Vertical semielliptical converging incision performed full-thickness down to bone about the right second metatarsal phalangeal joint with sharp incision through the metatarsal phalangeal joint where the right second toe was disarticulated through the second metatarsal phalange joint sharply and the right second toe was passed from the operative field to be sent to pathology for permanent. Of note there was a wound that probe directly to bone at the intermediate phalanx with purulent drainage and devitalized poor density bone with off hurt color at the intermediate phalanx of the right second toe. This was sent to pathology. The incision was irrigated with saline solution. Second metatarsal head was viable and adjacent soft tissue viable at the amputation level. All bleeders were ligated and cauterized as necessary. Subcutaneous tissue closed with 3-0 Vicryl and skin with 4-0 nylon with dressing of Xeroform, sterile gauze, Kerlix and Coban followed by application of a postop shoe. Tourniquet was deflated and a prompt hyperemic response is noted to the remaining digits lesser digits of the right foot. Patient tolerated the procedure well and was transferred to the PACU with vital signs stable and vascular status intact. After period of postoperative monitoring he will be transferred back to the floor, would benefit from custodial placement
--- NOTE | 2024-10-10 13:10 | ANE.PACU2 ---
Inpatient post-anesthesia follow up: Airway intact: Yes Vital signs: Temperature 98.6 F Pulse Rate 57 Respiratory Rate 16 Blood Pressure 170/73 Pulse Oximetry 98 Oxygen Delivery Me thod Nasal Cannula Oxygen Flow Rate 3 Fraction of Inspir ed Oxygen Hydration adequate: Yes Nausea and vomiting: No Pain level: 1 Mental status: Baseline
--- NOTE | 2024-10-10 14:00 | USCV_ITS ---
Ben Mendoza Age: 74 Gender: M : 1950 Exam Date: 10/10/2024 19:44 Ordering Phys: Waldo Duong MD Technologist: MARICRUZ [place] [facility] [place]: s/p RIGHT 1st toe amputation today. Long-term smoker, continues smoking, DM Risk Factors: s/p RIGHT 1st toe amputation today. Long-term smoker, continues smoking, DM Previous Vascular Surgery: unknown RIGHT LEFT BP: 142.0 / 73.00 BP: / 0 Waveform Velocity (cm/s) Velocity (cm/s) Waveform Triphasic 226.0 Iliac Prox 217.0 Triphasic Triphasic 204.0 Iliac Mid 188.0 Triphasic Biphasic 190.0 Iliac Distal 185.0 Triphasic Triphasic 174.0 VALIDATION SOFTWARE FACILITATOR 205.0 Triphasic Triphasic 169.0 SFA Prox 212.0 Triphasic Biphasic 153.0 SFA Mid 150.0 Triphasic Biphasic 123.0 SFA Dist 135.0 Triphasic Biphasic 196.0 POP 76.0 Triphasic Biphasic 144.0 KILN LABOURER 101.0 Biphasic DPA 34.0 Monophasic 0.9 RILEY 0.9 FINDINGS Resting RILEY on the right side is 0.9 Mild to moderate scattered plaques are noted in the femoral and popliteal arteries on the right side. No Doppler signals in the right dorsalis pedis artery Mild to moderate diffuse plaque in the femoral and popliteal artery on the left side Resting RILEY 0.9 on the left CONCLUSIONS 1. Slightly diminished resting RILEY of 0.9 bilaterally, suggesting mild peripheral artery disease 2. Mild to moderate diffuse plaque in the femoral and popliteal arteries bilaterally 3. 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
[2024-10-10 14:49] LABS: Iron 19 ug/dL (59-158); Percent Saturation 13.9 % (20-50); Thyroid Stimulating Hormone 1.02 uIU/mL (0.27-4.20); Total Iron Binding Capacity 136 mcg/dl; Unsaturated Iron Binding 117 ug/dL (112-347); Vitamin B12 685 pg/mL (232-1245)
--- NOTE | 2024-10-10 15:01 | PM.PN ---
Subjective Subjective: Hospital course, labs appreciated. Patient seen postoperatively. He states he is feeling comfortable. Having slight pain in the foot. Denies any nausea, vomiting, headache, fever. Has remained hemodynamically stable and afebrile. Blood pressures elevated today morning. Vitals/I&O/Wt Last Vital Signs Temp 98.6 F 10/10/24 13:05 Pulse 57 L 10/10/24 14:20 Resp 16 10/10/24 14:20 BP 170/73 10/10/24 13:10 Pulse Ox 98 10/10/24 14:20 O2 Del Method Nasal Cannula 10/10/24 14:20 O2 Flow Rate 3 10/10/24 14:20 10/10/24 10/10/24 10/10/24 06:59 14:59 22:59 Intake Total 350 / 700 50 / 50 Output Total 220 / 470 0 / 0 Balance 130 / 230 50 / 50 Weight last 48 hrs Weight 108.21 kg Weight 108.409 kg Weight 108.409 kg Physical Exam Const: COMMON NORMALS: patient oriented x3 and alert GENERAL APPEARANCE: cooperative NUTRITIONAL APPEARANCE: overweight ORIENTATION/CONSCIOUSNESS: Yes awake, Yes oriented to person, Yes oriented to place and Yes oriented to time OTHER: Forgetful HENMT: COMMON NORMALS: oropharynx normal Neck/C-Spine: COMMON NORMALS: no JVD Resp: COMMON NORMALS: normal respiratory effort and clear to auscultation bilaterally AUSCULTATION: clear to auscultation bilaterally Cardio: COMMON NORMALS: no JVD, regular rhythm, S1 normal heart sound present, S2 normal heart sound present and No murmurs present (Cardio) RHYTHM: regular rhythm HEART SOUNDS: S1 normal heart sound present and S2 normal heart sound present GI: COMMON NORMALS: Normal to inspection, nondistended, normoactive bowel sounds present, Soft to palpation and non-tender PALPATION: Yes Soft to palpation Extremity: NARRATIVE EXTREMITY EXAM: Foot surgically bandaged in a boot Neuro: COMMON NORMALS: patient oriented x3 and moves all extremities SENSORIUM/ORIENTATION: Yes alert, Yes oriented to person, Yes oriented to place and Yes oriented to time Data 10/10/24 02:32 10/10/24 02:32 Micro: Microbiology 10/09/24 13:50 Blood Culture - Preliminary Blood NEGATIVE TO DATE 10/09/24 13:45 Blood Culture - Preliminary Blood NEGATIVE TO DATE A&P Assessment and plan (1) Acute osteomyelitis of right foot: (2) Cellulitis of right foot: (3) Septic arthritis of interphalangeal joint of toe of right foot: (4) HTN (hypertension): (5) Renal dysfunction: Do not have baseline renal functions. Creatinine down to 1.3 from 1.7 yesterday. Continue to monitor daily. Replace potassium 40 mg orally. Renal ultrasound. Plan MECHE versus CKD: Creatinine 1.7. Follow-up renal function. Limit nephrotoxins. Abnormal urinalysis: UA with 5-10 WBC. Negative nitrate, negative leukocyte Estrace, trace bacteria. No symptoms. He is on antibiotics as above. BPH: Continue tamsulosin Restless leg syndrome HTN: Monitor blood pressures. Cardiac diet. Prediabetes: Reports prediabetes, is on Farxiga. Hold oral meds for now. Monitor glucose, low-dose sliding scale insulin. COPD: Not in exacerbation, normally on 3 L oxygen. DuoNebs, budesonide. Smoking addiction: Discussed cessation for 3 minutes, he had quit for a long time, but has restarted recently. Knows that he should really quit. He is okay with starting nicotine replacement in the hospital. Pressure sore: Sacral pressure ulcer. Reposition frequently. Wound care. Goals of care discussion: In case of cardiopulmonary arrest he would want resuscitation. In case could not make his own decisions names his daughter Mitra Baumann as a surrogate decision-maker, her phone number is [phone]. Plan for the day: Postoperative day 1. Follow-up culture results. Post amputation. Does have mild surrounding cellulitis as per the surgical team. For now continue with IV Zosyn and oral linezolid. Check MRSA swab. If negative will discontinue linezolid. Appreciate A1c. No concerns for diabetes. Check lower limb duplex to rule out PAD. Will request documents from patient's outpatient PCP at [facility]. Goal blood pressure less than 140/90 mmHg. Blood pressure is elevated. Give amlodipine 5 mg oral one-time followed by 10 mg oral daily. Patient does have bradycardia. If needed will add JAMESON/ARB as per the goal blood pressures. Physical therapy. Restart other home medications including Namenda, bupropion. Discharge planning: Patient states he would want to go to SNF for further rehabitation if possible. Case management alerted. Attestations Medical Necessity Statement*: Requires further hospitalization for postoperative care for acute osteomyelitis of right second toe post amputation, safe discharge planning Diagnoses Acute osteomyelitis of right foot M86.171 Cellulitis of right foot L03.115 Septic arthritis of interphalangeal joint of toe of right foot M00.9 HTN (hypertension) I10 Renal dysfunction N28.9
--- NOTE | 2024-10-10 15:06 | USR_ITS ---
PROCEDURE INFORMATION: Exam: US Retroperitoneal, Complete, Kidneys and Bladder Exam date and time: 10/10/2024 4:16 PM Age: 74 years old Clinical indication: Condition or disease; Kidney or ureter condition; Chronic kidney disease or failure; Additional info: Acute kidney injury versus ckd TECHNIQUE: Imaging protocol: Real-time ultrasound of the retroperitoneum with image documentation. Complete exam focused on the bilateral kidneys and urinary bladder. COMPARISON: No relevant prior studies available. FINDINGS: Right kidney: Subcentimeter cysts are seen. No obstruction of the urine. Prominent renal fat. Mild parenchymal atrophy. Left kidney: Subcentimeter cysts are seen. No obstruction of the urine. Prominent renal fat. Mild parenchymal atrophy. Urinary bladder: Underdistended. US/US renal BI* [id number] IMPRESSION: 1. Multicystic kidneys bilaterally without evidence for obstruction. 2. Prominent renal fat with mild parenchymal atrophy bilaterally.
[2024-10-10] MEDS: pregabalin 150 mg Capsule PO ×2 (15:55→20:31)
[2024-10-10] MEDS: amlodipine 5 mg Tablet PO (15:55)
[2024-10-10] MEDS: memantine 5 mg tablet 10 MG PO (19:05)
[2024-10-10] MEDS: enoxaparin 40 mg/0.4 mL Syringe SUBCUT (19:05)
[2024-10-10] MEDS: pramipexole 0.25 mg Tablet 0.5 MG PO (19:05)
[2024-10-10 19:06] LABS: Glucose Point of Care 176 mg/dL (70-110)
[2024-10-10] MEDS: insulin lispro 100 unit/1 mL SUBCUT ×2 (19:16→20:31)
[2024-10-11] VITALS (14 sets, daily range): BP systolic 128–160; BP diastolic 64–74; PULSE 52–90; RESP 16–18; TEMP 36.7–37.4; O2SAT 93–100
[2024-10-11] MEDS: ipratropium-albuterol 3 mL Neb INHALATION ×4 (02:17→21:21)
[2024-10-11 05:37] LABS: Basophils % 0.4 %; Eosinophils # 0.1 10^3/uL (0.0-0.8); Eosinophils % 0.6 %; Hematocrit 39.9 % (37-53); Lymphocytes # 1.2 10^3/uL (0.8-4.8); Lymphocytes % 14.2 %; Mean Corpuscular HGB Conc 30.1 g/dL (30-55); Mean Corpuscular Volume 89.9 fl (82-101); Mean Platelet Volume 9.5 fL (7.4-10.4); Monocytes # 0.8 10^3/uL (0.2-0.9); Monocytes % 9.3 %; Neutrophils # 6.34 10^3/uL (1.8-7.7); Nucleated Red Blood Cells % 0 %; Platelet Count 217 10^3/cmm (157-399); Red Blood Count 4.44 10^6/uL (3.85-5.65); White Blood Count 8.45 10^3/uL (3.29-11.43)
[2024-10-11 06:01] LABS: Cholesterol 143 mg/dL (0-200); HDL Cholesterol 27 mg/dL (60-100); LDL Cholesterol Calculated 90 mg/dL (50-129); Triglycerides 131 mg/dL (0-150); VLDL Cholestrol Calculation 26 mg/dL (0-30)
[2024-10-11 06:08] LABS: Alanine Aminotransferase 13 U/L (0-41); Alkaline Phosphatase 162 U/L (40-130); Anion Gap 13.7 (5-19); Aspartate Amino Transferase 12 U/L (0-40); Blood Urea Nitrogen 14 mg/dL (8-23); Calcium 8.9 mg/dL (8.5-10.5); Carbon Dioxide 26 mmol/L (22-29); Chloride 105 mmol/L (98-107); Creatinine Clr Calc Pharmacy 65.2713; Globulin 4.4 g/dL (1.3-4.6); Glucose 116 mg/dL (65-115); Magnesium 2.7 mg/dL (1.7-2.3); Osmolality Calculated 293 mOsm/kg (285-295); Potassium 3.7 mmol/L (3.5-5.1); Sodium 141 mmol/L (136-145); Total Bilirubin 0.4 mg/dL (0.15-1.2); Total Protein 7.4 g/dL (6.6-8.7)
[2024-10-11 06:39] LABS: Folate Level > 20.0 ng/mL (4.5-32.2)
--- NOTE | 2024-10-11 07:23 | P.PN_ITS ---
Subjective 2 Subjective: Patient was seen bedside this a.m., denies any acute events overnight. He endorses discomfort at the right foot toe amputation site. Patient denies any subjective nausea, vomiting, fever, chills, shortness of breath or chest pain. Vitals/I&O/Wt Last Vital Signs Temp 98.2 F 10/11/24 04:00 Pulse 54 L 10/11/24 04:00 Resp 16 10/11/24 04:00 BP 150/65 10/11/24 04:00 Pulse Ox 98 10/11/24 04:00 O2 Del Method Nasal Cannula 10/11/24 04:00 O2 Flow Rate 3 10/11/24 04:00 10/10/24 10/11/24 10/11/24 22:59 06:59 14:59 Intake Total 590 / 640 360 / 1000 50 / 50 Output Total 300 / 300 Balance 590 / 640 60 / 700 50 / 50 Weight last 48 hrs Weight 242 lb 8 oz Weight 238 lb 9 oz Weight 239 lb Weight 239 lb Physical Exam 2 Narrative: GENERAL: Patient is alert and oriented ?3 and in no acute distress. The following is a focused bilateral lower extremity exam. Accompanied by his brother VASCULAR: Dorsalis pedis diminished bilaterally. Posterior tibial arteries diminished bilaterally. Capillary refill time less delayed approximately 5 seconds digits 2 through 5 in the right and 1 through 5 to the left. Calf is supple and nontender proximally and distally. Decreased pedal hair growth. Edema to the right second toe. NEUROLOGICAL: Protective sensation intact 0/10 sites, tested with [place] monofilament to bilateral feet. DERMATOLOGICAL: Right second toe amputation site incision is well coapted without periwound erythema warmth or drainage, no dehiscence. MUSCULOSKELETAL: Status post right second toe amputation. Status post first ray amputation right foot. 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 Hammertoes of lesser digits left foot. Hammertoe of lesser digits right foot. 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 Incision is well-healing Level of amputation was curative of osteomyelitis, surrounding soft tissue is improved. 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
[2024-10-11] MEDS: buPROPion XL (24 HR) 300 mg Tablet PO (07:32)
[2024-10-11] MEDS: linezolid premix 600 MG/300 ML PREMIX 300 MG IV ×2 (07:32→15:16)
[2024-10-11] MEDS: pregabalin 150 mg Capsule PO ×3 (07:32→20:11)
[2024-10-11] MEDS: piperacillin-tazobactam 3.375 GM in sodium chloride 0.9% (plus) 50 ML IV ×3 (07:33→23:32)
[2024-10-11] MEDS: budesonide 0.5 mg/2 mL Neb 0.25 MG INHALATION ×2 (07:49→21:21)
[2024-10-11 08:19] LABS: Glucose Point of Care 176 mg/dL (70-110)
[2024-10-11] MEDS: insulin lispro 100 unit/1 mL SUBCUT ×2 (09:16→13:30)
[2024-10-11] MEDS: nicotine 14 mg Patch 1 PATCH TRANSDERMA (09:16)
[2024-10-11] MEDS: tamsulosin 0.4 mg Capsule PO (09:17)
[2024-10-11] MEDS: memantine 5 mg tablet 10 MG PO ×2 (09:17→16:50)
[2024-10-11] MEDS: aspirin 81 mg EC Tablet PO (09:17)
[2024-10-11] MEDS: pramipexole 0.25 mg Tablet 0.5 MG PO ×2 (09:17→16:49)
--- NOTE | 2024-10-11 10:39 | PC.CHAP ---
Pastoral Care Encounter/Spiritual Assessment Type of Contact [] Declined environmental restoration planner visit [] Patient/Family/Request visit [] Outpatient visit [] Follow-up visit [] Physician referral [] Code/Alert [x] Routine visit [] Staff referral [] Actively dying [] Patient sleeping [x] Family support [] [] Out of room [] Palliative care [] [] Receiving care in room [] Pre-surgical visit [] Trauma [] Long length of stay [] ICU visit [] Other: Relational/Emotional Strength [x] Patient feels connected with others/family/visitors/staff [] Distress [] Loneliness/isolation [] Abandonment Spirituality of Patient [x] Person of Lisa [] Attends Uatsdin of their Lisa [x] Believes in Prayer [] Reads Bible or Gnosticist materials [] There are Spiritual issues to be addressed Seismograph Operator Interventions [x] Prayer [x] Active listening [x] Non-anxious presence [x] Spiritual/emotional support [] Crisis/trauma care [] Spiritual counseling [] Bereavement support [] Provided bereavement packet [] Provided Bible/devotional materials [] Provided toy/stuffed animal, coloring book to patient or family member [] Provided Communion [] Anointing/[place] [] Salvation [x] Completed spiritual assessment [] Other: Impact on Illness or Injury [] Angry [] Fearful [] Anxious [] Often cries [] Exhaustion [] Unable to work [] Unable to attend baptism [] Unable to walk/stand [] Unable to read [] Unable to drive [] Unable to eat/drink [] Unable to sleep [] Unable to be with family [] Patient intubated [] Other: Summary Time spent with patient 5 min
[2024-10-11] MEDS: amlodipine 10 mg Tablet PO (11:32)
[2024-10-11] MEDS: chlorthalidone 25 mg Tablet 12.5 MG PO (11:32)
[2024-10-11] MEDS: HYDROcodone-acetaminophen 5-325 mg Tablet 1 TAB PO ×2 (11:32→23:32)
[2024-10-11 12:12] LABS: Glucose Point of Care 146 mg/dL (70-110)
--- NOTE | 2024-10-11 15:22 | PC.NURSE ---
Assumed care of this patient at this time.
--- NOTE | 2024-10-11 15:56 | P.PN_ITS ---
Subjective 2 Subjective: No acute events overnight. Seen working with occupational therapy today. States pain in the foot is well-controlled. Complaining of pain in left hip. Vitals/I&O/Wt Last Vital Signs Temp 98.1 F 10/11/24 11:01 Pulse 56 L 10/11/24 13:56 Resp 16 10/11/24 13:46 BP 128/70 10/11/24 11:01 Pulse Ox 93 10/11/24 13:46 O2 Del Method Room Air 10/11/24 13:46 O2 Flow Rate 3 10/11/24 11:01 10/11/24 10/11/24 10/11/24 06:59 14:59 22:59 Intake Total 360 / 1000 750 / 750 Output Total 300 / 300 200 / 200 Balance 60 / 700 550 / 550 Weight last 48 hrs Weight 109.996 kg Weight 108.21 kg Weight 108.409 kg Physical Exam 2 Const: COMMON NORMALS: patient oriented x3 and alert GENERAL APPEARANCE: c ooperative NUTRITIONAL APPEARANCE: overweight ORIENTATION/CONSCIOUSNESS: Y es awake, Yes oriented to person, Yes oriented to place and Yes oriented to time OTHER: Forgetful HENMT: COMMON NORMALS: oropharynx normal Neck/C-Spine: COMMON NORMALS: no JVD Resp: COMMON NORMALS: normal respiratory effort and clear to auscultation bilaterally AUSCULTATION: clear to auscultation bilaterally Cardio: COMMON NORMALS: no JVD, regular rhythm, S1 normal heart sound present, S2 normal heart sound present and No murmurs present (Cardio) RHYTHM: regular rhythm HEART SOUNDS: S1 normal heart sound present and S2 normal heart sound present GI: COMMON NORMALS: Normal to inspection, nondistended, normoactive bowel sounds present, Soft to palpation and non-tender PALPATION: Yes Soft to palpation Extremity: NARRATIVE EXTREMITY EXAM: Foot surgically bandaged in a boot Neuro: COMMON NORMALS: patient oriented x3 and moves all extremities S ENSORIUM/ORIENTATION: Yes alert, Yes oriented to person, Yes oriented to place and Yes oriented to time Data 10/11/24 04:56 10/11/24 04:56 Micro: Microbiology 10/09/24 13:50 Blood Culture - Preliminary Blood NEGATIVE TO DATE 10/09/24 13:45 Blood Culture - Preliminary Blood NEGATIVE TO DATE A&P Assessment and plan (1) Acute osteomyelitis of right foot: (2) Cellulitis of right foot: (3) Septic arthritis of interphalangeal joint of toe of right foot: (4) HTN (hypertension): (5) Renal dysfunction: Appreciate blood work and records from patient's PCP office. Patient does have CKD stage III at baseline. Creatinine for now has remained stable. Continue to monitor daily. (6) Heart failure with preserved ejection fraction: Currently not in exacerbation. (7) CKD (chronic kidney disease), stage III: (8) Peripheral arterial disease: Plan Abnormal urinalysis: UA with 5-10 WBC. Negative nitrate, negative leukocyte Estrace, trace bacteria. No symptoms. He is on antibiotics as above. BPH: Continue tamsulosin Restless leg syndrome HTN: Monitor blood pressures. Cardiac diet. Prediabetes: A1c of 5.1. Continue with home dose of Farxiga. Should be in setting of diastolic heart failure. COPD: Not in exacerbation, normally on 3 L oxygen. DuoNebs, budesonide. Smoking addiction: Discussed cessation for 3 minutes, he had quit for a long time, but has restarted recently. Knows that he should really quit. He is okay with starting nicotine replacement in the hospital. Pressure sore: Sacral pressure ulcer. Reposition frequently. Wound care. Goals of care discussion: In case of cardiopulmonary arrest he would want resuscitation. In case could not make his own decisions names his daughter Mitra Baumann as a surrogate decision-maker, her phone number is [phone]. Plan for the day: Postoperative day 2. Plan to continue antibiotics for overall 48 hours postoperatively. As per the records from outpatient office he does have history of MRSA in the past. Continue with linezolid and Zosyn for now. Will plan to discontinue tomorrow if remains afebrile. Arterial duplex showing diminished RILEY bilaterally, possible total occlusion of dorsalis pedis on the right foot. Start on aspirin 81 mg daily. Appreciate A1c and lipid panel. Found to have cognitive decline on Occupational Therapy with BIMS of 10/16. Blood pressure is elevated. Continue with amlodipine 10 mg oral. Add chlorthalidone 12.5 mg oral daily. Uptitrate as for goal blood pressures. Discharge planning: Patient states he would want to go to SNF for further rehabitation if possible. Case management alerted. Attestations 2 Medical Necessity Statement*: Requires further hospitalization biopsy of discharge planning is sought in a patient admitted for osteomyelitis of the foot post amputation, cellulitis in setting of peripheral arterial disease Diagnoses Acute osteomyelitis of right foot M86.171 Cellulitis of right foot L03.115 Septic arthritis of interphalangeal joint of toe of right foot M00.9 HTN (hypertension) I10 Renal dysfunction N28.9 Heart failure with preserved ejection fraction I50.30 CKD (chronic kidney disease), stage III N18.30 Peripheral arterial disease I73.9
[2024-10-11 16:27] LABS: Glucose Point of Care 132 mg/dL (70-110)
[2024-10-11] MEDS: enoxaparin 40 mg/0.4 mL Syringe SUBCUT (16:49)
[2024-10-11 22:12] LABS: Glucose Point of Care 133 mg/dL (70-110)
[2024-10-12] VITALS: BP 157/65; PULSE 63; RESP 17; TEMP 37; O2SAT 95
[2024-10-12] MEDS: linezolid premix 600 MG/300 ML PREMIX 300 MG IV (02:07)
[2024-10-12] MEDS: ipratropium-albuterol 3 mL Neb INHALATION ×2 (02:37→08:27)
[2024-10-12 03:17] VITALS: BP 145/64; PULSE 60; RESP 17; TEMP 36.7; O2SAT 94
[2024-10-12] MEDS: buPROPion XL (24 HR) 300 mg Tablet PO (05:27)
[2024-10-12] MEDS: piperacillin-tazobactam 3.375 GM in sodium chloride 0.9% (plus) 50 ML IV (05:27)
[2024-10-12] MEDS: pregabalin 150 mg Capsule PO ×2 (05:27→13:00)
[2024-10-12 06:05] LABS: Basophils % 0.4 %; Eosinophils # 0.1 10^3/uL (0.0-0.8); Eosinophils % 1.2 %; Hematocrit 39.5 % (37-53); Lymphocytes # 1.5 10^3/uL (0.8-4.8); Lymphocytes % 18.6 %; Mean Corpuscular HGB Conc 30.6 g/dL (30-55); Mean Corpuscular Hemoglobin 26.9 pg (27-33); Mean Corpuscular Volume 87.8 fl (82-101); Mean Platelet Volume 9.6 fL (7.4-10.4); Monocytes # 0.8 10^3/uL (0.2-0.9); Monocytes % 9.2 %; Neutrophils # 5.71 10^3/uL (1.8-7.7); Neutrophils % 70.1 %; Nucleated Red Blood Cells % 0 %; Platelet Count 233 10^3/cmm (157-399); Red Cell Distribution Width 15.1 % (12.1-15.1); White Blood Count 8.14 10^3/uL (3.29-11.43)
--- NOTE | 2024-10-12 06:28 | P.PN_ITS ---
Subjective 2 Subjective: Patient was seen bedside this a.m., denies any acute events overnight. Patient denies any subjective nausea, vomiting, fever, chills, shortness of breath or chest pain. Vitals/I&O/Wt Last Vital Signs Temp 98.1 F 10/12/24 03:17 Pulse 60 10/12/24 03:17 Resp 17 10/12/24 03:17 BP 145/64 10/12/24 03:17 Pulse Ox 94 10/12/24 03:17 O2 Del Method Room Air 10/12/24 03:17 O2 Flow Rate 3 10/11/24 11:01 10/11/24 10/11/24 10/12/24 14:59 22:59 06:59 Intake Total 750 / 750 550 / 1300 450 / 1750 Output Total 200 / 200 800 / 1000 950 / 1950 Balance 550 / 550 -250 / 300 -500 / -200 Weight last 48 hrs Weight 242 lb 8 oz Weight 242 lb 8 oz Physical Exam 2 Narrative: GENERAL: Patient is alert and oriented ?3 and in no acute distress. The following is a focused bilateral lower extremity exam. Accompanied by his brother VASCULAR: Dorsalis pedis diminished bilaterally. Posterior tibial arteries diminished bilaterally. Capillary refill time less delayed approximately 5 seconds digits 2 through 5 in the right and 1 through 5 to the left. Calf is supple and nontender proximally and distally. Decreased pedal hair growth. Edema to the right second toe. NEUROLOGICAL: Protective sensation intact 0/10 sites, tested with [place] monofilament to bilateral feet. DERMATOLOGICAL: Right second toe amputation site incision is well coapted without periwound erythema warmth or drainage, no dehiscence, no active bleeding. MUSCULOSKELETAL: Status post right second toe amputation. Status post first ray amputation right foot. 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 Hammertoes of lesser digits left foot. Hammertoe of lesser digits right foot. 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 Incision is well-healing Level of amputation was curative of osteomyelitis, surrounding soft tissue is improved. 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
[2024-10-12 06:35] LABS: Glucose Point of Care 104 mg/dL (70-110)
[2024-10-12 06:40] LABS: Alanine Aminotransferase 13 U/L (0-41); Albumin Level 3.4 g/dL (3.5-5.2); Alkaline Phosphatase 184 U/L (40-130); Anion Gap 15.4 (5-19); Aspartate Amino Transferase 15 U/L (0-40); Blood Urea Nitrogen 12 mg/dL (8-23); Carbon Dioxide 27 mmol/L (22-29); Chloride 102 mmol/L (98-107); Globulin 4.1 g/dL (1.3-4.6); Glucose 108 mg/dL (65-115); Osmolality Calculated 292 mOsm/kg (285-295); Potassium 3.4 mmol/L (3.5-5.1); Sodium 141 mmol/L (136-145); Total Bilirubin 0.6 mg/dL (0.15-1.2); Total Protein 7.5 g/dL (6.6-8.7)
[2024-10-12 06:43] LABS: Magnesium 2.2 mg/dL (1.7-2.3)
[2024-10-12 08:20] VITALS: BP 177/75; PULSE 55; RESP 16; TEMP 37.1; O2SAT 97
[2024-10-12 08:27] VITALS: PULSE 63; RESP 18; O2SAT 96
[2024-10-12] MEDS: budesonide 0.5 mg/2 mL Neb 0.25 MG INHALATION (08:27)
[2024-10-12] MEDS: tamsulosin 0.4 mg Capsule PO (09:36)
[2024-10-12] MEDS: amlodipine 10 mg Tablet PO (09:37)
[2024-10-12] MEDS: aspirin 81 mg EC Tablet PO (09:37)
[2024-10-12] MEDS: chlorthalidone 25 mg Tablet 12.5 MG PO (09:37)
[2024-10-12] MEDS: pramipexole 0.25 mg Tablet 0.5 MG PO (09:37)
[2024-10-12] MEDS: nicotine 14 mg Patch 1 PATCH TRANSDERMA (09:38)
[2024-10-12] MEDS: memantine 5 mg tablet 10 MG PO (09:39)
--- NOTE | 2024-10-12 11:05 | P.DS_ITS ---
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: Status: Inactive (3) Acute osteomyelitis of right foot: Status: Acute (4) Septic arthritis of interphalangeal joint of toe of right foot: Status: Acute Reason for Visit Reason for Visit: abd pain Brief History: History as per HPI: Pleasant 74-year-old gentleman with history of borderline diabetes, recently diagnosed hypertension, started on amlodipine, restless leg syndrome, BPH, COPD on chronic 3 L of oxygen, had quit smoking for a long time but recently picked it up again, sacral pressure sore, comes in due to having close to about a week of erythema in his right second toe spreading up proximally over the foot, reports yesterday he woke up to there being fairly severe edema, also with a wound on the distal big toe with some drainage. Denies fever or chills. Had transient mild abdominal discomfort initially in ER, although this has resolved. In ER he is afebrile, with noted elevated inflammatory markers ESR 35, CRP 238.5, with erythema and severe swelling of the right 2nd toe with a wound, small amount of purulent drainage, as well as swelling and erythema of distal right foot. Foot x-ray obtained, pending, on initial read there is prior ray amputation of the first digit on the right foot, pathological dislocation of the distal phalanx of the second toe, pending official read. Podiatry is consulted. Blood cultures were obtained, he is started on linezolid and Zosyn. Hospital Course Hospital Course Patient was admitted to the hospital for further evaluation and management of acute osteomyelitis of second toe of right foot. Patient was not found to be diabetic. Started on broad-spectrum IV antibiotics. Podiatry was consulted. He underwent amputation of devitalized bone right second toe intermediate phalanx. During hospitalization he was continued on IV antibiotics and cellulitis continued to improve. Given concerns for osteomyelitis without diabetes he underwent arterial duplex which is concerning for peripheral artery disease with stenosed dorsalis pedis. Patient worked well with physical therapy and Occupational Therapy. He was found to be moderately cognitive impaired as per BIMS study. Patient and family requested transfer to SNF for further rehabilitation. He has been discharged back to SNF on oral antibiotics. During hospitalization he was found to have elevated blood pressures for which his antihypertensives were adjusted. He is to check his blood pressure daily at home maintain a blood pressure diary. He is to take oral antibiotics and Levaquin management for next 3 days. Physical Exam Const: COMMON NORMALS: patient oriented x3 and alert GENERAL APPEARANCE: cooperative NUTRITIONAL APPEARANCE: overweight ORIENTATION/CONSCIOUSNESS: Yes awake, Yes oriented to person, Yes oriented to place and Yes oriented to time OTHER: Forgetful HENMT: COMMON NORMALS: oropharynx normal Neck/C-Spine: COMMON NORMALS: no JVD Resp: COMMON NORMALS: normal respiratory effort and clear to auscultation bilaterally AUSCULTATION: clear to auscultation bilaterally Cardio: COMMON NORMALS: no JVD, regular rhythm, S1 normal heart sound present, S2 normal heart sound present and No murmurs present (Cardio) RHYTHM: regular rhythm HEART SOUNDS: S1 normal heart sound present and S2 normal heart sound present GI: COMMON NORMALS: Normal to inspection, nondistended, normoactive bowel sounds present, Soft to palpation and non-tender PALPATION: Yes Soft to palpation Extremity: NARRATIVE EXTREMITY EXAM: Foot surgically bandaged in a boot Neuro: COMMON NORMALS: patient oriented x3 and moves all extremities SENSORIUM/ORIENTATION: Yes alert, Yes oriented to person, Yes oriented to place and Yes oriented to time Discharge Data Studies Completed and Pending Completed Studies During Hospitalization Category Date Time Status XR foot RT min 3V* [id number] Stat Exams 10/09/24 13:33 [place] [id number] Routine Ultrasound 10/10/24 14:00 Completed US renal BI* [id number] Routine Ultrasound 10/10/24 15:06 Completed Pending at discharge Category Date Time Status Blood Culture Stat Lab 10/09/24 13:50 Results MAG [Magnesium] AM LABS Lab 10/13/24 04:00 Ordered MRSA PCR OZH (swab) Routine Lab 10/10/24 15:00 Ordered Wound Culture and Gram Stain Routine Lab 10/09/24 17:17 Uncollected Pathology: Surgical [PTH] Routine Pth 10/10/24 12:25 Received Radiology Impressions Foot X-Ray 10/09/24 13:33 IMPRESSION: No evident radiographic findings of osteomyelitis. Given proximity of the wound to the phalanges of the 2nd digit, MRI would be warranted for more sensitive evaluation. Renal Ultrasound 10/10/24 15:06 IMPRESSION: 1. Multicystic kidneys bilaterally without evidence for obstruction. 2. Prominent renal fat with mild parenchymal atrophy bilaterally. Microbiology 10/09/24 13:50 Blood Blood Culture - Preliminary NEGATIVE TO DATE 10/09/24 13:45 Blood Blood Culture - Preliminary NEGATIVE TO DATE Laboratory Results WBC 8.14 10^3/uL (3.29-11.43) 10/12/24 04:16 RBC 4.50 10^6/uL (3.85-5.65) 10/12/24 04:16 Hgb 12.10 g/dL (11.27-16.99) 10/12/24 04:16 Hct 39.5 % (37-53) 10/12/24 04:16 MCV 87.8 fl (82-101) 10/12/24 04:16 MCH 26.9 pg (27-33) L 10/12/24 04:16 MCHC 30.6 g/dL (30-55) 10/12/24 04:16 RDW 15.1 % (12.1-15.1) 10/12/24 04:16 Plt Count 233 10^3/cmm (157-399) 10/12/24 04:16 MPV 9.6 fL (7.4-10.4) 10/12/24 04:16 Neut % (Auto) 70.1 % 10/12/24 04:16 Lymph % (Auto) 18.6 % 10/12/24 04:16 [place] % (Auto) 9.2 % 10/12/24 04:16 Eos % (Auto) 1.2 % 10/12/24 04:16 Baso % (Auto) 0.4 % 10/12/24 04:16 Neut # (Auto) 5.71 10^3/uL (1.8-7.7) 10/12/24 04:16 Lymph # (Auto) 1.5 10^3/uL (0.8-4.8) 10/12/24 04:16 [place] # (Auto) 0.8 10^3/uL (0.2-0.9) 10/12/24 04:16 Eos # (Auto) 0.1 10^3/uL (0.0-0.8) 10/12/24 04:16 Baso # (Auto) 0.0 10^3/uL (0.0-0.1) 10/12/24 04:16 Nucleated RBC % (auto) 0 % 10/12/24 04:16 Nucleated RBCs # 0.0 /100WBC 10/12/24 04:16 ESR 35 mm/hr (0-10) H 10/09/24 13:23 Sodium 141 mmol/L (136-145) 10/12/24 04:16 Potassium 3.4 mmol/L (3.5-5.1) L 10/12/24 04:16 Chloride 102 mmol/L (98-107) 10/12/24 04:16 Carbon Dioxide 27 mmol/L (22-29) 10/12/24 04:16 Anion Gap 15.4 (5-19) 10/12/24 04:16 BUN 12 mg/dL (8-23) 10/12/24 04:16 Creatinine 1.4 mg/dL (0.7-1.2) H 10/12/24 04:16 GFR Calculation Not Reportable 10/12/24 04:16 Glucose 108 mg/dL (65-115) 10/12/24 04:16 POC Glucose 104 mg/dL (70-110) 10/12/24 06:20 Estimat Average Glucose 100 10/09/24 13:23 Hemoglobin A1c 5.1 % (4.0-6.0) 10/09/24 13:23 Calculated Osmolality 292 mOsm/kg (285-295) 10/12/24 04:16 Lactic Acid 1.2 mmol/L (0.5-2.2) 10/09/24 13:23 Calcium 9.0 mg/dL (8.5-10.5) 10/12/24 04:16 Magnesium 2.2 mg/dL (1.7-2.3) 10/12/24 04:16 Iron 19 ug/dL (59-158) L 10/10/24 02:32 TIBC 136 mcg/dl 10/10/24 02:32 % Saturation 13.9 % (20-50) L 10/10/24 02:32 Unsat Iron Binding 117 ug/dL (112-347) 10/10/24 02:32 Total Bilirubin 0.6 mg/dL (0.15-1.2) 10/12/24 04:16 AST 15 U/L (0-40) 10/12/24 04:16 ALT 13 U/L (0-41) 10/12/24 04:16 Alkaline Phosphatase 184 U/L (40-130) H 10/12/24 04:16 C-Reactive Protein 238.5 mg/L (0.0-4.9) H 10/09/24 13:23 Total Protein 7.5 g/dL (6.6-8.7) 10/12/24 04:16 Albumin 3.4 g/dL (3.5-5.2) L 10/12/24 04:16 Globulin 4.1 g/dL (1.3-4.6) 10/12/24 04:16 Triglycerides 131 mg/dL (0-150) 10/11/24 04:56 Cholesterol 143 mg/dL (0-200) 10/11/24 04:56 LDL Cholesterol, Calc 90 mg/dL (50-129) 10/11/24 04:56 Total VLDL Cholesterol 26 mg/dL (0-30) 10/11/24 04:56 HDL Cholesterol 27 mg/dL (60-100) L 10/11/24 04:56 Cholesterol/HDL Ratio 5.30 mg/dL (1.0-5.00) H 10/11/24 04:56 Lipase 13 U/L (13-60) 10/09/24 13:23 Vitamin B12 685 pg/mL (232-1245) 10/10/24 02:32 Folate > 20.0 ng/mL (4.5-32.2) 10/11/24 04:56 TSH 1.02 uIU/mL (0.27-4.20) 10/10/24 02:32 Urine Color Yellow (Yellow) 10/09/24 13:23 Urine Appearance Clear (CLEAR) 10/09/24 13:23 Urine pH 6.0 (5-7) 10/09/24 13:23 Ur Specific [place] 1.024 (1.005-1.030) 10/09/24 13:23 Urine Protein 1+ (Negative) A 10/09/24 13:23 Urine Glucose (UA) 3+ (Normal) H 10/09/24 13:23 Urine Ketones 1+ (Negative) H 10/09/24 13:23 Urine Blood Negative (Negative) 10/09/24 13:23 Urine Nitrate Negative (Negative) 10/09/24 13:23 Urine Bilirubin Negative (Negative) 10/09/24 13:23 Urine Urobilinogen 1.0 mg/dL (Negative) 10/09/24 13:23 Ur Leukocyte Esterase Negative (Negative) 10/09/24 13:23 Urine RBC 0-4 /hpf (0-2) H 10/09/24 13:23 Urine WBC 5-10 /hpf (0-5) H 10/09/24 13:23 Ur Squamous Epith Cells 0-4 /hpf (0-5) H 10/09/24 13:23 Amorphous Sediment Not Reportable 10/09/24 13:23 Urine Bacteria 1+ /hpf (NONE) H 10/09/24 13:23 Urine Mucus 1+ /hpf 10/09/24 13:23 Vitals Last Vital Signs Temp 98.8 F 10/12/24 08:20 Pulse 63 10/12/24 08:27 Resp 18 10/12/24 08:27 BP 177/75 10/12/24 08:20 Pulse Ox 96 10/12/24 08:27 O2 Del Method Room Air 10/12/24 08:27 O2 Flow Rate 3 10/11/24 11:01 Discharge Plan Discharge Patient Disposition: Xfer SNF Condition: Stable Prescriptions: New chlorthalidone 25 mg Tablet 12.5 mg PO DAILY Qty: 30 0RF aspirin 81 mg Tablet,Delayed Release (Dr/Ec) 81 mg PO DAILY Qty: 30 0RF amlodipine 10 mg Tablet 10 mg PO DAILY Qty: 30 0RF linezolid 600 mg tablet 600 mg PO BID 3 Days Qty: 6 0RF levofloxacin 500 mg tablet 500 mg PO Q24H 3 Days Qty: 3 0RF Continued pramipexole 0.5 mg tablet 0.5 mg PO BID tamsulosin 0.4 mg capsule 0.4 mg PO DAILY ondansetron 4 mg tablet,disintegrating 4 mg PO Q8H fluticasone propionate 50 mcg/actuation spray,suspension 2 spray INTRANASAL DAILY bupropion HCl 300 mg tablet extended release 24 hr 300 mg PO QAM memantine 10 mg tablet 10 mg PO BID pregabalin 150 mg capsule 150 mg PO Q8H desvenlafaxine succinate 100 mg tablet extended release 24 hr 100 mg PO DAILY buprenorphine-naloxone 8-2 mg film 2 film buccal DAILY dapagliflozin propanediol [Farxiga] 10 mg tablet 10 mg PO QAM Discontinued furosemide 40 mg tablet 40 mg PO DAILY amlodipine 2.5 mg tablet 2.5 mg PO DAILY Discharge Orders: Discharge Order (Routine); Ordered 10/12/24 Ordered By: Waldo Duong Referrals: [facility] [Outside] Arnaldo Farr DO [Emergency Provider] - Discharge Diet: Cardiac Discharge Activity: Resume usual activity and Increase activity as tolerated Patient Instructions: Levofloxacin (By mouth) (Levaquin, Levaquin Leva-brian), Linezolid (By mouth), Acute Wound Care (DC), Opioid Safety, Post Anesthesia Care Discharge Attestations Time Spent in Discharge Care*: greater than 30 min Specific Discharge Activities: educating patient, discussing with pcp/other providers, discussing with case making machine operator/social workers/dc planners, documenting/other paperwork and evaluating patient/reviewing data Status at Discharge: Cognitive status at discharge: mildly impaired cognition , Behavioral status at discharge: cooperative , Functional status at discharge: uses cane/walker , Overall status at discharge: patient is back to baseline Quality Metrics Clinical Quality Measures [ No reported AMI, CVA or VTE this stay] Coding Level of Care Code 70095 Total time (in minutes) for Discharge: 60 Diagnoses Cellulitis of right foot L03.115 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
[2024-10-12] MEDS: HYDROcodone-acetaminophen 5-325 mg Tablet 1 TAB PO (11:07)
--- NOTE | 2024-10-12 11:13 | PC.OT ---
OT TREATMENT ATTEMPTED THIS A.M. PATIENT IS SLEEPING SOUNDLY.
[2024-10-12 11:47] LABS: Glucose Point of Care 220 mg/dL (70-110)
[2024-10-12] MEDS: insulin lispro 100 unit/1 mL SUBCUT (11:54)
--- NOTE | 2024-10-12 12:05 | PC.SOCIAL ---
IMM Update Pg. 2 of IMM updated. Initialed, dated, and timed, copy provided at bedside.
[2024-10-12 12:15] VITALS: BP 157/79; PULSE 69; RESP 18; TEMP 36.4; O2SAT 97
== END 2024-10-12 13:55 | disposition skilled nursing facility (03) | DRG 617 ==
LOC: ER 17:06 → MEDSURG 17:32
PROVIDERS: Emergency Medicine; Podiatrist Foot & Ankle Surgery; Admitting Provider Internal Medicine; Emergency Provider Family Medicine; Family Provider Family Medicine; PCP Nurse Practitioner Family; Visit Provider Student in an Organized Health Care Education/Training Program
PROC: 0Y6R0Z0 Detachment at Right 2nd Toe, Complete, Open Approach (ICD-10-PCS; principal; 2024-10-10 13:10)
DX: E11.69 Type 2 diabetes mellitus with other specified complication (principal); L03.115 Cellulitis of right lower limb; M86.171 Other acute osteomyelitis, right ankle and foot; M00.9 Pyogenic arthritis, unspecified; E11.51 Type 2 diabetes mellitus with diabetic peripheral angiopathy without gangrene; E11.22 Type 2 diabetes mellitus with diabetic chronic kidney disease; I12.9 Hypertensive chronic kidney disease with stage 1 through stage 4 chronic kidney disease, or unspecified chronic kidney disease; N18.30 Chronic kidney disease, stage 3 unspecified; G25.81 Restless legs syndrome; N40.0 Benign prostatic hyperplasia without lower urinary tract symptoms; J44.9 Chronic obstructive pulmonary disease, unspecified; Z99.81 Dependence on supplemental oxygen; F17.210 Nicotine dependence, cigarettes, uncomplicated; Z89.411 Acquired absence of right great toe; N17.9 Acute kidney failure, unspecified
CPT/HCPCS: 36415; 36416; 73630; 76770; 80048; 80053; 80061; 81001; 82607; 82746; 82962; 83036; 83540; 83550; 83605; 83690; 83735; 84443; 85025; 85651; 86140; 87040; 88305; 88311; 93925; 94640; 96365; 96367; 96372; 97116; 97161; 97167; 97530; 99285; J1650; J1815; J2020; J2543; J2704; J7030; J7626

== ENCOUNTER 2024-10-31 08:12 | Inpatient (IN) | payer MEDICARE, OTHER, SELFPAY ==
[2024-10-31] VITALS (109 sets, daily range): BP systolic 82–119; BP diastolic 47–59; PULSE 51–105; RESP 15–32; TEMP 37.2–39.5; O2SAT 81–100; BMI 32.5
--- NOTE | 2024-10-31 08:15 | XR_ITS ---
WS: [id number] Portable AP upright chest, 10/31/2024 Clinical Data: sob Comparison: Two-view chest, 03/31/2017 Findings: There is opacity involving the majority of the left lung. There is minimal aeration in the left upper lobe with prominent interstitial markings. There is mediastinal shift from right to left. The right lung shows no nodules, masses or effusions. The pulmonary vascularity is not increased. No pneumothorax is seen. There are monitor leads over the chest wall. There are anterior cervical disc f usions. There is repair of a distal right clavicle fracture. XR/XR chest 1V portable [id number] Impression: 1. Dense opacity and volume loss of the left lung which could be chronic but al so could represent pneumonia, atelectasis or effusion. 2. The right lung shows no nodules, masses or effusions.
--- NOTE | 2024-10-31 08:16 | ECG_ITS ---
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 Measurements Intervals [place] Rate: 103 P: -80 MO: 147 QRS: -48 QRSD: 98 T: 81 QT: 301 QTc: 396 Interpretive Statements SINUS TACHYCARDIA LOW QRS VOLTAGE IN PRECORDIAL LEADS [QRS DEFLECTION < 1.0 mV IN CHEST LEADS] POSSIBLE ANTERIOR MYOCARDIAL INFARCTION , PROBABLY OLD [30 ms Q WAVE IN V3/V4, OR R < 0.2 mV IN V4] INFERIOR MYOCARDIAL INFARCTION , PROBABLY OLD [40+ ms Q WAVE AND/OR ST/T ABNORMALITY IN II/aVF] Compared to ECG 07/26/2015 13:29:43 Low QRS voltage now present Myocardial infarct finding now present Sinus rhythm no longer present Electronically Signed On 10-31-2024 16:34:39 DIGITAL CONTENT COORDINATOR by Ricardo Guerin M.D. [email or web address]
[2024-10-31 08:21] LABS: ABG PCO2 42.2 mmHg (35-45); ABG PH Result 7.36 (7.35-7.45); Alveolar-Arterial Oxygen Gradi 7.2 mmHg (5-10); Arterial Blood Gas Hematocrit 39.6 % (42-52); Base Excess ABG -1.6 mmol/L (-2.0-2.0); Blood Gas Allen Test Pos; Blood Gas Operator Identificat WALCI; Blood Gas Sample Site Radial, left; Blood Gas Sample Type Arterial; Carboxyhemoglobin 2.3 %THgb (0.4-20.1); HCO3 ABG 23.9 mmol/L (22-26); HGB O2 Sat 74.9 % (95-100); Ionized Calcium Level - ABG 1.1 mmol/L (1.1-1.4); Methemoglobin 0.8 % (0.4-1.5); Oxygen Device CONT NEB; Oxygen Saturation ABG 77.3; PO2 ABG 41.8 mmHg (80.0-100.0); Potassium Level - ABG 3.2 mmol/L (3.5-5.0); Total Hemoglobin 12.9 g/dL (14-18)
--- NOTE | 2024-10-31 08:23 | ED_ITS ---
HPI - SOB/Dyspnea 2 General: Chief Complaint: Shortness of Breath/Dyspnea Stated Complaint: ams Time Seen by Provider: 10/31/24 08:15 Source: EMS Mode of arrival: EMS Limitations: altered mental status History of Present Illness: HPI Narrative: 74-year-old male here from jail per jail patient's had fever along with cough shortness of breath and confusion. Patient is febrile here he is requiring 10 L at this time with coarse breath sounds. He is altered not able to really answer any questions. Related Data Home Medications Medication Instructions Recorded Confirmed buprenorphine 8 mg-naloxone 2 mg 2 film buccal DAILY 10/09/24 10/31/24 sublingual film bupropion HCl 300 mg 24 hr tablet, 300 mg PO QAM 10/09/24 10/31/24 extended release dapagliflozin propanediol 10 mg 10 mg PO QAM 10/09/24 10/31/24 tablet (Farxiga) desvenlafaxine succinate 100 mg 100 mg PO DAILY 10/09/24 10/31/24 tablet,extended release 24 hr fluticasone propionate 50 2 spray intranasal DAILY 10/09/24 10/31/24 mcg/actuation nasal spray,suspension memantine 10 mg tablet 10 mg PO BID 10/09/24 10/31/24 ondansetron 4 mg disintegrating 4 mg PO Q8H 10/09/24 10/31/24 tablet pramipexole 0.5 mg tablet 0.5 mg PO BID 10/09/24 10/31/24 pregabalin 150 mg capsule 150 mg PO Q8H 10/09/24 10/31/24 tamsulosin 0.4 mg capsule 0.4 mg PO DAILY 10/09/24 10/31/24 Previous Rx's Medication Instructions Recorded amlodipine 10 mg tablet 10 mg PO DAILY #30 tabs 10/12/24 aspirin 81 mg tablet,delayed 81 mg PO DAILY #30 tabs 10/12/24 release chlorthalidone 25 mg tablet 12.5 mg (1/2 x 25 mg) PO DAILY #30 10/12/24 tabs Allergies Allergy/AdvReac Type Severity Reaction Status Date / Time No Known Allergies Allergy Verified 10/09/24 11:55 Review of Systems 2 General: Reports: ROS unobtainable due to mental status PFSH ED 2 PFSH: Medical History Peripheral arterial disease CKD (chronic kidney disease), stage III Heart failure with preserved ejection fraction MRSA (methicillin resistant staph aureus) culture positive Lung cancer myelomeningocele History of tibial fracture History of fracture of clavicle Pressure ulcer BPH (benign prostatic hyperplasia) COPD (chronic obstructive pulmonary disease) Restless leg syndrome HTN (hypertension) Surgical History 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 S/P TURP History of lobectomy of lung History of fusion of cervical spine Social History Smoking and tobacco/nicotine status: current every day tobacco/nicotine user Alcohol intake: never Substance/Drug Use: current Substance/Drug use frequency: Special occassions/opportunity only Physical Exam 2 Const: COMMON NORMALS: negative for patient oriented x3 GENERAL APPEARANCE: ill appearing HENMT: COMMON NORMALS: normocephalic and atraumatic HEAD & SCALP: n ormocephalic and atraumatic Eye: COMMON NORMALS: conjunctivae normal CONJUNCTIVA: Yes conjunctivae normal Neck/C-Spine: COMMON NORMALS: full ROM and supple Chest: COMMONS NORMALS: normal inspection of the chest Resp: EFFORT & INSPECTION: Yes tachypneic and Yes respiratory distress A USCULTATION: rales Cardio: COMMON NORMALS: regular rhythm and No murmurs present (Cardio) R ATE: tachycardic RHYTHM: regular rhythm GI: COMMON NORMALS: Normal to inspection, nondistended, normoactive bowel sounds present, Soft to palpation, non-tender and no masses PALPATION: Yes Soft to palpation Extremity: COMMON NORMALS: normal to inspection and full ROM Neuro: COMMON NORMALS: moves all extremities and no focal motor deficits; negative for patient oriented x3 Psych: COMMON NORMALS: Normal thought process present and cooperative; negative for mental status grossly normal THOUGHT PROCESS: Normal thought process present Skin: COMMON NORMALS: no rashes or lesions noted and no wounds GENERAL SKIN EXAM: no rashes or lesions noted Course 2 Vital Signs: Vital signs: Vital Signs Temperature 99.7 F H 10/31/24 09:54 Pulse Rate 71 10/31/24 11:20 Respiratory Rate 20 H 10/31/24 11:20 Blood Pressure 108/54 10/31/24 11:20 Pulse Oximetry 94 10/31/24 11:20 Oxygen Delivery Me thod BiPAP 10/31/24 11:20 Oxygen Flow Rate 6 10/31/24 08:16 Fraction of Inspir ed Oxygen 75 10/31/24 09:50 MDM - SOB/Dyspnea Medical Decision Making Patient presents here with pneumonia he is improved here on BiPAP I did speak to the hospitalist will admit to the ICU at this time I have reached out to different facilities try to transfer patient for pulmonology every 1 as beds are full I did get him on the wait list at [facility] with Dr. Do excepting Medical Records I reviewed the patient's medical records. Lab Data I reviewed the patient's lab results. 10/31/24 08:30 10/31/24 08:30 Labs/Radiology: Radiology Impressions Chest X-Ray 10/31/24 08:15 Impression: 1. Dense opacity and volume loss of the left lung which could be chronic but also could represent pneumonia, atelectasis or effusion. 2. The right lung shows no nodules, masses or effusions. Chest CTA 10/31/24 08:46 IMPRESSION: 1. No evidence of pulmonary embolus. 2. Evidence of prior LEFT upper lobectomy presumed due to prior lung cancer resection. Volume loss LEFT lung. 3. Partial consolidation with volume loss in the lingula and LEFT lower lobe. Recommend correlation for pneumonia symptoms. This should be followed up with bronchoscopy. 4. Patchy interstitial edema with infiltrates in the residual LEFT aerated LEFT upper lobe 5. Additional wedge-shaped infiltrate with subsegmental atelectasis in the RIGHT lower lobe with surrounding hazy groundglass infiltrates. This may be infectious or inflammatory. Recommend follow-up to resolution to exclude underlying neoplasm. Laboratory Results WBC 17.49 10^3/uL (3.29-11.43) H 10/31/24 08:30 RBC 4.73 10^6/uL (3.85-5.65) 10/31/24 08:30 Hgb 12.80 g/dL (11.27-16.99) 10/31/24 08:30 Hct 41.7 % (37-53) 10/31/24 08:30 MCV 88.2 fl (82-101) 10/31/24 08:30 MCH 27.1 pg (27-33) 10/31/24 08:30 MCHC 30.7 g/dL (30-55) 10/31/24 08:30 RDW 15.6 % (12.1-15.1) H 10/31/24 08:30 Plt Count 205 10^3/cmm (157-399) 10/31/24 08:30 MPV 9.9 fL (7.4-10.4) 10/31/24 08:30 Neut % (Auto) 84.9 % 10/31/24 08:30 Lymph % (Auto) 9.3 % 10/31/24 08:30 Gilchrist % (Auto) 5.0 % 10/31/24 08:30 Eos % (Auto) 0.0 % 10/31/24 08:30 Baso % (Auto) 0.2 % 10/31/24 08:30 Neut # (Auto) 14.86 10^3/uL (1.8-7.7) H 10/31/24 08:30 Lymph # (Auto) 1.6 10^3/uL (0.8-4.8) 10/31/24 08:30 Gilchrist # (Auto) 0.9 10^3/uL (0.2-0.9) 10/31/24 08:30 Eos # (Auto) 0.0 10^3/uL (0.0-0.8) 10/31/24 08:30 Baso # (Auto) 0.0 10^3/uL (0.0-0.1) 10/31/24 08:30 Nucleated RBC % (auto) 0 % 10/31/24 08:30 Nucleated RBCs # 0.0 /100WBC 10/31/24 08:30 PT 15.40 SECONDS (12.1-14.9) H 10/31/24 08:30 INR 1.18 (0.8-1.2) 10/31/24 08:30 Specimen Type Arterial 10/31/24 08:10 Sample Site Radial, left 10/31/24 08:10 ABG pH 7.36 (7.35-7.45) 10/31/24 08:10 ABG pCO2 42.2 mmHg (35-45) 10/31/24 08:10 ABG pO2 41.8 mmHg (80.0-100.0) L 10/31/24 08:10 ABG HCO3 23.9 mmol/L (22-26) 10/31/24 08:10 ABG O2 Saturation 77.3 10/31/24 08:10 ABG Base Excess -1.6 mmol/L (-2.0-2.0) 10/31/24 08:10 Riky Test Pos 10/31/24 08:10 A-a O2 Gradient 7.2 mmHg (5-10) 10/31/24 08:10 Hematocrit 39.6 % (42-52) L 10/31/24 08:10 Hgb O2 Saturation 74.9 % (95-100) L 10/31/24 08:10 Carboxyhemoglobin 2.3 %THgb (0.4-20.1) 10/31/24 08:10 Methemoglobin 0.8 % (0.4-1.5) 10/31/24 08:10 Total Hemoglobin 12.9 g/dL (14-18) L 10/31/24 08:10 Sodium 144.0 mmol/L (131-143) H 10/31/24 08:10 Potassium 3.2 mmol/L (3.5-5.0) L 10/31/24 08:10 Glucose 120.0 mg/dL (70-115) H 10/31/24 08:10 Ionized Calcium 1.1 mmol/L (1.1-1.4) 10/31/24 08:10 O2 Delivery Device Cont neb 10/31/24 08:10 O2 Liters/Min 5.0 % 10/31/24 08:10 Power Sewing Machine Operator ID [place] 10/31/24 08:10 Sodium 140 mmol/L (136-145) 10/31/24 08:30 Potassium 3.1 mmol/L (3.5-5.1) L 10/31/24 08:30 Chloride 103 mmol/L (98-107) 10/31/24 08:30 Carbon Dioxide 22 mmol/L (22-29) 10/31/24 08:30 Anion Gap 18.1 (5-19) 10/31/24 08:30 BUN 30 mg/dL (8-23) H 10/31/24 08:30 Creatinine 1.8 mg/dL (0.7-1.2) H 10/31/24 08:30 GFR Calculation Not Reportable 10/31/24 08:30 Glucose 120 mg/dL (65-115) H 10/31/24 08:30 Calculated Osmolality 297 mOsm/kg (285-295) H 10/31/24 08:30 Lactic Acid 1.1 mmol/L (0.5-2.2) 10/31/24 08:30 Calcium 8.2 mg/dL (8.5-10.5) L 10/31/24 08:30 Magnesium 1.6 mg/dL (1.7-2.3) L 10/31/24 08:30 Total Bilirubin 1.3 mg/dL (0.15-1.2) H 10/31/24 08:30 AST 27 U/L (0-40) 10/31/24 08:30 ALT 29 U/L (0-41) 10/31/24 08:30 Alkaline Phosphatase 247 U/L (40-130) H 10/31/24 08:30 NT-Pro-B Natriuret Pep 3096 pg/mL (0-125) H 10/31/24 08:30 Total Protein 7.5 g/dL (6.6-8.7) 10/31/24 08:30 Albumin 3.2 g/dL (3.5-5.2) L 10/31/24 08:30 Globulin 4.3 g/dL (1.3-4.6) 10/31/24 08:30 Coronavirus (PCR) Negative (Negative) 10/31/24 08:32 Influenza A (PCR) Negative (Negative) 10/31/24 08:32 Influenza Type B (PCR) Negative (Negative) 10/31/24 08:32 RSV (PCR) Negative (Negative) 10/31/24 08:32 All radiology interpretation(s) finalized by discharge EKG Data EKG 1: I personally reviewed and interpreted this EKG as follows: EKG Interpretation Date: 10/31/24 EKG interpretation time: 08:23 Interpretation: sinus tach hr [address] elevation qrs 98 qtc 361 Critical Care Time 2 Critical Care Time: Critical Care Time: Yes Total Critical Care Time: 40 Attestation: The high probability of a clinically significant, sudden or life threatening deterioration of the patient's resp system(s) required my full and direct attention, intervention and personal management. The critical care time is as shown. This time is in addition to time spent performing any reported procedures but includes the following: [x] Data and vital sign review and interpretation [x] Patient assessment, examination and intervention [x] Documentation [x] Medication orders and management Discharge Plan Discharge Patient Disposition: Admitted As Inpatient Clinical Impression: Community acquired pneumonia, Acute respiratory failure with hypoxemia Condition: Stable Prescriptions: No Action pramipexole 0.5 mg tablet 0.5 mg PO BID tamsulosin 0.4 mg capsule 0.4 mg PO DAILY ondansetron 4 mg tablet,disintegrating 4 mg PO Q8H fluticasone propionate 50 mcg/actuation spray,suspension 2 spray INTRANASAL DAILY bupropion HCl 300 mg tablet extended release 24 hr 300 mg PO QAM memantine 10 mg tablet 10 mg PO BID pregabalin 150 mg capsule 150 mg PO Q8H desvenlafaxine succinate 100 mg tablet extended release 24 hr 100 mg PO DAILY buprenorphine-naloxone 8-2 mg film 2 film buccal DAILY dapagliflozin propanediol [Farxiga] 10 mg tablet 10 mg PO QAM chlorthalidone 25 mg Tablet 12.5 mg PO DAILY Qty: 30 0RF aspirin 81 mg Tablet,Delayed Release (Dr/Ec) 81 mg PO DAILY Qty: 30 0RF amlodipine 10 mg Tablet 10 mg PO DAILY Qty: 30 0RF Referrals: Alecia Miranda FNP [Primary Care Provider] - Coding Level of Care Code ED Mdm Sr for Chuck Covington
[2024-10-31] MEDS: sodium chloride 0.9% 1,000 ML 999 ML IV (08:30)
[2024-10-31] MEDS: acetaminophen 1,000 MG/100 ML PIGGYBACK 400 MG IV (08:32)
--- NOTE | 2024-10-31 08:40 | PC.NURSE ---
PATIENT 2 L NS HANGING. ONE IS FROM EMS.
--- NOTE | 2024-10-31 08:46 | CT_ITS ---
WS: [id number] CTA OF THE CHEST WITH PULMONARY EMBOLISM PROTOCOL TECHNIQUE: High-resolution contrast enhanced CTA of the chest with coronal and sagittal reformatted i jed with pulmonary embolism protocol. MIP images are also reviewed. CLINICAL INFORMATION: sob DLP: 547.[address] scans at [facility] use at least one of these dose optimization techniques: automated e xposure control; mA and/or kV adjustment per patient size (includes targeted exams where dose is matc hed to clinical indication); or iterative reconstruction. FINDINGS: Proximal main pulmonary arteries are normal. Normal segmental and subsegmental pulmonary arteries. No evidence of pulmonary embolus. Prior postoperative changes LEFT upper lobectomy. Volume loss LEFT lung. Consolidation of the lingula and LEFT lower lobe with volume loss patchy infiltrates with interstitial edema in the residual aera perla LEFT upper lobe and LEFT lower lobe peripherally. This should be followed up with bronchoscopy. R ecommend correlation with pneumonia symptoms. Wedge-shaped infiltrate or atelectasis in the RIGHT lower lobe with hazy groundglass infiltrates. Thi s may be infectious or inflammatory. Recommend follow-up to resolution. Normal caliber thoracic aorta. Aortic calcification. Coronary calcification. Cardiomegaly. Small esop hageal hiatal hernia. Adrenal glands are normal. Celiac and SMA are patent in the upper abdomen. Mode rate thoracic kyphosis. Hypertrophic changes thoracic spine. Endplate Schmorl's nodes in the midthora cic spine. Chronic rib fractures. CT/CT angio chest PE protcl [id number] IMPRESSION: 1. No evidence of pulmonary embolus. 2. Evidence of prior LEFT upper lobectomy presumed due to prior lung cancer re section. Volume loss LEFT lung. 3. Partial consolidation with volume loss in the lingula and LEFT lower lobe. Recommend correlation for pneumonia symptoms. This should be followed up with b ronchoscopy. 4. Patchy interstitial edema with infiltrates in the residual LEFT aerated LEF T upper lobe 5. Additional wedge-shaped infiltrate with subsegmental atelectasis in the RIG HT lower lobe with surrounding hazy groundglass infiltrates. This may be infect ious or inflammatory. Recommend follow-up to resolution to exclude underlying n eoplasm.
[2024-10-31 08:50] LABS: Basophils % 0.2 %; Hematocrit 41.7 % (37-53); Lymphocytes # 1.6 10^3/uL (0.8-4.8); Lymphocytes % 9.3 %; Mean Corpuscular HGB Conc 30.7 g/dL (30-55); Mean Corpuscular Hemoglobin 27.1 pg (27-33); Mean Corpuscular Volume 88.2 fl (82-101); Mean Platelet Volume 9.9 fL (7.4-10.4); Monocytes # 0.9 10^3/uL (0.2-0.9); Neutrophils # 14.86 10^3/uL (1.8-7.7); Neutrophils % 84.9 %; Nucleated Red Blood Cells % 0 %; Platelet Count 205 10^3/cmm (157-399); Red Blood Count 4.73 10^6/uL (3.85-5.65); Red Cell Distribution Width 15.6 % (12.1-15.1); White Blood Count 17.49 10^3/uL (3.29-11.43)
[2024-10-31] MEDS: piperacillin-tazobactam 3.375 GM in sodium chloride 0.9% (plus) 50 ML IV ×2 (08:50→15:47)
[2024-10-31] MEDS: VANCOMYCIN ADD-Vantage 1,000 MG in 0.9% NaCl ADD-Vantage 250 ML 250 MG IV (08:51)
--- NOTE | 2024-10-31 09:06 | PC.PHAR ---
Pt is from [facility]-his nurse Taina states pt has not had morning medications today.10/31/24
[2024-10-31 09:10] LABS: INR 1.18 (0.8-1.2); Lactic Sepsis W/Reflex 1.1 mmol/L (0.5-2.2)
[2024-10-31 09:21] LABS: Alanine Aminotransferase 29 U/L (0-41); Albumin Level 3.2 g/dL (3.5-5.2); Alkaline Phosphatase 247 U/L (40-130); Anion Gap 18.1 (5-19); Aspartate Amino Transferase 27 U/L (0-40); Blood Urea Nitrogen 30 mg/dL (8-23); Calcium 8.2 mg/dL (8.5-10.5); Carbon Dioxide 22 mmol/L (22-29); Chloride 103 mmol/L (98-107); Creatinine Clr Calc Pharmacy 47.2772; Globulin 4.3 g/dL (1.3-4.6); Glucose 120 mg/dL (65-115); Magnesium 1.6 mg/dL (1.7-2.3); NT Pro B Type Natriuretic Pept 3096 pg/mL (0-125); Osmolality Calculated 297 mOsm/kg (285-295); Potassium 3.1 mmol/L (3.5-5.1); Sodium 140 mmol/L (136-145); Total Bilirubin 1.3 mg/dL (0.15-1.2); Total Protein 7.5 g/dL (6.6-8.7)
[2024-10-31 09:37] LABS: Covid PCR NEGATIVE (Negative); Influenza A NEGATIVE (Negative); Influenza B NEGATIVE (Negative); Respiratory Syncytial Virus Ce NEGATIVE (Negative)
[2024-10-31] MEDS: iohexol 350 mg/mL 500 mL Btl (per mL) IV (09:48)
[2024-10-31 11:54] LABS: Bilirubin Urine Negative (Negative); Blood Urine Negative (Negative); Glucose Urine UA 3+ (Normal); Ketones Urine Negative (Negative); Leukocyte Esterase Urine Negative (Negative); Nitrate Urine Negative (Negative); Protein Urine Trace (Negative); Specific Gravity, Urine 1.019 (1.005-1.030); Urine Appearance Clear (CLEAR); Urine Color Dark Yellow (Yellow); pH Urine 5.5 (5-7)
[2024-10-31 11:59] LABS: Add Urine Microscopic? YES; Bacteria Urine None Seen /hpf; Hyaline Casts Urine 9.51 /lpf; RBC Urine 0-2 /hpf (0-2); Squamous Epithelial Cell Urine 0-5 /hpf (0-5); WBC Urine 0-5 /hpf (0-5)
[2024-10-31 12:29] LABS: Add Urine Culture? No
--- NOTE | 2024-10-31 12:42 | PM.HP ---
Providers/Chief Complaint Admitting Physician: Ad Yen Primary Care Provider: PAT Herbert Chief Complaint: ams History of Present Illness 74-year-old gentleman with HTN, RLS, BPH, COPD on chronic 3 L oxygen, former smoker, had not smoked for a long time but recently picked it up again, sacral pressure sore, was recently hospitalized for further assessment and management of right foot infection, with finding of osteomyelitis,, undergoing imitation of right second toe, received treatment with antibiotics. Incidentally also found to have moderate cognitive impairment by BIMS. Post discharge she was transferred to SNF on 10/12. He was evaluated in ER today, sent over from retirement with altered mental status, in ER with fever 103 Fahrenheit, shortness of breath, confusion, with finding of coarse breath sounds. With leukocytosis 17.49, fever 103.1, chest x-ray with dense opacity and volume loss of left lung which could be chronic but also could represent pneumonia, atelectasis or effusion. With hypoxia down to 81%, was started on BiPAP support. CT angiogram chest showed no evidence of PE. Prior left upper lobectomy. Volume loss of left lung. Partial consolidation with volume loss in the lingula and left lower lobe. Patchy interstitial edema with infiltrates in the residual aerated left upper lobe. Additional wedge-shaped infiltrate with subsegmental atelectasis in the right lower lobe with surrounding hazy groundglass infiltrates. Infectious versus inflammatory. Recommended follow-up to resolution to exclude underlying neoplasm. COVID, influenza, RSV PCR negative. His breathing so far has improved with BiPAP, and he is able to wake up to answer a few questions. He does not remember having any overt aspiration, but is not sure. Arrangements for transfer attempted in ER for further bronchoscopy and pulmonary assessment, however, bed could not be secured. Placed on a waiting list to [facility]. For now as per discussion with his brother admission here to intensive care unit pending bed availability. Review of Systems Card: Denies: chest pain Resp: Reports: dyspnea (Slightly better with BiPAP.) GI: Denies: abdominal pain, nausea, vomiting or diarrhea Medications/Allergies Home Medications Medication Instructions Recorded Confirmed Last Taken Type buprenorphine 8 mg-naloxone 2 mg 2 film buccal DAILY 10/09/24 10/31/24 10/30/24 History sublingual film bupropion HCl 300 mg 24 hr tablet, 300 mg PO QAM 10/09/24 10/31/24 10/30/24 History extended release dapagliflozin propanediol 10 mg 10 mg PO QAM 10/09/24 10/31/24 10/30/24 History tablet (Farxiga) desvenlafaxine succinate 100 mg 100 mg PO DAILY 10/09/24 10/31/24 10/30/24 History tablet,extended release 24 hr fluticasone propionate 50 2 spray intranasal DAILY 10/09/24 10/31/24 10/30/24 History mcg/actuation nasal spray,suspension memantine 10 mg tablet 10 mg PO BID 10/09/24 10/31/24 10/30/24 History ondansetron 4 mg disintegrating 4 mg PO Q8H 10/09/24 10/31/24 10/30/24 History tablet pramipexole 0.5 mg tablet 0.5 mg PO BID 10/09/24 10/31/24 10/30/24 History pregabalin 150 mg capsule 150 mg PO Q8H 10/09/24 10/31/24 10/30/24 History tamsulosin 0.4 mg capsule 0.4 mg PO DAILY 10/09/24 10/31/24 10/30/24 History amlodipine 10 mg tablet 10 mg PO DAILY #30 tabs 10/12/24 10/31/24 10/30/24 Rx aspirin 81 mg tablet,delayed 81 mg PO DAILY #30 tabs 10/12/24 10/31/24 10/30/24 Rx release chlorthalidone 25 mg tablet 12.5 mg (1/2 x 25 mg) PO DAILY #30 10/12/24 10/31/24 10/30/24 Rx tabs Allergies Allergy/AdvReac Type Severity Reaction Status Date / Time No Known Allergies Allergy Verified 10/09/24 11:55 PFSH Acute PFSH: Medical History Peripheral arterial disease CKD (chronic kidney disease), stage III Heart failure with preserved ejection fraction MRSA (methicillin resistant staph aureus) culture positive Lung cancer myelomeningocele History of tibial fracture History of fracture of clavicle Pressure ulcer BPH (benign prostatic hyperplasia) COPD (chronic obstructive pulmonary disease) Restless leg syndrome HTN (hypertension) Surgical History 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 S/P TURP History of lobectomy of lung History of fusion of cervical spine Social History Smoking and tobacco/nicotine status: current every day tobacco/nicotine user Alcohol intake: never Substance/Drug Use: current Substance/Drug use frequency: Special occassions/opportunity only Vitals/I&O/Wt Last Vital Signs Temp 99.7 F H 10/31/24 09:54 Pulse 68 10/31/24 12:00 Resp 24 H 10/31/24 12:00 BP 117/56 10/31/24 12:30 Pulse Ox 90 10/31/24 12:00 O2 Del Method BiPAP 10/31/24 11:20 O2 Flow Rate 6 10/31/24 08:16 FiO2 75 10/31/24 09:50 10/30/24 10/31/24 10/31/24 22:59 06:59 14:59 Intake Total 2400 / 2400 Balance 2400 / 2400 Weight last 48 hrs Weight 108.862 kg Physical Exam Narrative: Accompanied by his brother. Const: GENERAL APPEARANCE: cooperative HENMT: COMMON NORMALS: oropharynx normal Neck/C-Spine: COMMON NORMALS: no JVD Resp: COMMON NORMALS: normal respiratory effort and clear to auscultation bilaterally AUSCULTATION: clear to auscultation bilaterally Cardio: COMMON NORMALS: no JVD, regular rhythm, S1 normal heart sound present, S2 normal heart sound present and No murmurs present (Cardio) RHYTHM: regular rhythm HEART SOUNDS: S1 normal heart sound present and S2 normal heart sound present GI: COMMON NORMALS: Normal to inspection, nondistended, normoactive bowel sounds present, Soft to palpation and non-tender PALPATION: Yes Soft to palpation Extremity: NARRATIVE EXTREMITY EXAM: 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 Small amount of eschar/clot at wound edge. No eviednce of dehiscence. No surrounding redness, swellling. Neuro: COMMON NORMALS: patient oriented x3 and moves all extremities SENSORIUM/ORIENTATION: Yes alert Urinary Catheter Management: Gillespie: Cath Placed During This Visit: yes Urinary Catheter Date of Insertion: 10/31/24 Urinary Catheter Time of Insertion: 11:51 Sepsis: Is patient septic: Yes Focused sepsis exam performed: Yes Data 10/31/24 08:30 10/31/24 08:30 Micro: Microbiology 10/31/24 08:30 Blood Culture - Preliminary Blood SPECIMEN COLLECTED 10/31/24 08:37 Blood Culture - Preliminary Blood SPECIMEN COLLECTED A&P Assessment and plan (1) Sepsis: On presentation with sepsis, with shortness of breath, altered mental status with lethargy, confusion, with respiratory failure, finding of suspected pneumonia left lung, additional groundglass opacity in right lower lobe reviewed vitals, CBC, INR, ABG, CMP, lactic acid, magnesium, NT proBNP, UA, coronavirus, flu, RSV PCR, chest x-ray, chest CT, ER provider note, discussed with ER provider. Partial consolidation with volume loss in the lingula and left lower lobe as well as wedge-shaped infiltrate with subsegmental atelectasis in the right lower lobe with surrounding hazy groundglass infiltrates. Sepsis with leukocytosis 17, fever 103 Fahrenheit, with acute encephalopathy, with MECHE on CKD, creatinine is up to 1.8. Pneumonia is suspected source. Possible aspiration pneumonia, though without overt aspiration event. There was a question of possible overmedication at home by patient from his home medicine box. With extensive pneumonia, respiratory failure, sepsis, possible aspiration pneumonia, arrangements attempted in ER for transfer for additional pulmonary assessment management with bronchoscopy, however, a bed could not be secured. As per discussion with patient's brother admission here for now to ICU, currently on waiting list to [facility] pending bed availability. Sepsis complicated by acute metabolic encephalopathy, MECHE. Blood cultures collected, started on antibiotic coverage empirically with vancomycin, Zosyn. Will keep n.p.o. for now with medications, sips and chips. Continue oxygen supplementation. Initially requiring BiPAP support. Continue as needed with respiratory therapy, will wean as tolerating. Collect sputum culture, MRSA PCR, urine bacterial antigens. (2) Acute respiratory failure with hypoxemia: Oxygen saturation presentation down to 81%, tachypnea, with sepsis as above. ABG 7.36/42.2/41.8. Was started on BiPAP support. Treat pneumonia as above. Continue BiPAP as needed, wean off as tolerating. Continue support oxygenation. (3) Pneumonia: As above. (4) Ground glass opacity present on imaging of lung: Will need follow-up for resolution. Plan MECHE on CKD: Creatinine at 1.8. Suspect related to sepsis as above. Received fluid challenge in ER. Reassess renal function. Hyperbilirubinemia: Bilirubin up to 1.3. Without GI symptoms. No abdominal pain or tenderness on palpation. Possible mild cholestasis secondary to sepsis. Alk phos slightly higher than usual 247 although chronically elevated, possibly secondary to the same. Reassess liver parameters. Hypomagnesemia: Replace. Recheck level. Recent toe amputation and foot infection: Cellulitis has resolved. Right second toe wound without any surrounding erythema, no drainage or bleeding. Follow-up with podiatry. Attestations Medical Necessity Statement*: Admission of over 2 midnights anticipated for assessment management of sepsis, respiratory failure with hypoxia, sepsis, pneumonia, complicated by acute metabolic encephalopathy, MECHE. Coding Level of Care Code Critical Care >/= 30 minutes Critical care time (in minutes): 35 The high probability of a clinically significant, sudden or life threatening deterioration, as referenced in this documentation, required my full and direct attention, intervention and personal management. The critical care time shown is in addition to time spent performing any reported separately billable procedures and includes the following: [x] Data and vital sign review and interpretation [x] Patient assessment, examination and intervention [x] Medication orders and management [x] Patient/Family updates as able [x] Care Coordination and Documentation. Diagnoses Sepsis A41.9 Acute respiratory failure with hypoxemia J96.01 Pneumonia J18.9 Ground glass opacity present on imaging of lung R91.8
--- NOTE | 2024-10-31 14:57 | PHA.VACGOAL ---
Vancomycin Goal - Goal Vancomycin Goal:: 15-20 mg/L Vancomycin Indication:: Pneumonia - Therapy Current therapy:: Pip/Tazo Day of therpy:: Day []of [] . Actual body weight (kg): 240 lb - Data Labs: WBC 17.49 10^3/uL (3.29-11.43) H 10/31/24 08:30 RBC 4.73 10^6/uL (3.85-5.65) 10/31/24 08:30 Hgb 12.80 g/dL (11.27-16.99) 10/31/24 08:30 Hct 41.7 % (37-53) 10/31/24 08:30 MCV 88.2 fl (82-101) 10/31/24 08:30 MCH 27.1 pg (27-33) 10/31/24 08:30 MCHC 30.7 g/dL (30-55) 10/31/24 08:30 RDW 15.6 % (12.1-15.1) H 10/31/24 08:30 Sodium 140 mmol/L (136-145) 10/31/24 08:30 Potassium 3.1 mmol/L (3.5-5.1) L 10/31/24 08:30 Chloride 103 mmol/L (98-107) 10/31/24 08:30 Carbon Dioxide 22 mmol/L (22-29) 10/31/24 08:30 Anion Gap 18.1 (5-19) 10/31/24 08:30 BUN 30 mg/dL (8-23) H 10/31/24 08:30 Creatinine 1.8 mg/dL (0.7-1.2) H 10/31/24 08:30 GFR Calculation Not Reportable 10/31/24 08:30 Treatment plan:: new consult Regimen:: 3000 MG LOADING DOSE FOLLOWED BY 750 MG Q12 HOURS MONITOR DAILY
[2024-10-31 15:03] LABS: Amphetamines Screen Urine Negative (Negative); Barbiturates Screen Urine Negative (Negative); Benzodiazepines Screen Urine Negative (Negative); Cocaine Screen Urine Negative (Negative); Opiate Screen Urine Negative (Negative); PCP Screen Urine Negative (Negative); THC Screen Urine Positive (Negative)
[2024-10-31] MEDS: vancomycin 3,000 MG/600 ML PIGGYBACK 200 MG IV (15:27)
[2024-10-31] MEDS: enoxaparin 40 mg/0.4 mL Syringe SUBCUT (15:31)
[2024-10-31] MEDS: magnesium sulfate premix 2 GM/50 ML PIGGYBACK IV (15:43)
[2024-10-31] MEDS: memantine 5 mg tablet 10 MG PO (17:48)
[2024-10-31 17:54] LABS: MRSA PCR OZH (swab) MRSA Detected (Negative)
[2024-11-01] VITALS (76 sets, daily range): BP systolic 86–138; BP diastolic 35–88; PULSE 53–104; RESP 16–30; TEMP 36.3–37.7; O2SAT 82–99; BMI 32.3
[2024-11-01] MEDS: piperacillin-tazobactam 3.375 GM in sodium chloride 0.9% (plus) 50 ML IV ×4 (00:23→23:30)
[2024-11-01] MEDS: VANCOMYCIN ADD-Vantage 750 MG in 0.9% NaCl ADD-Vantage 250 ML 250 MG IV ×2 (02:44→15:05)
[2024-11-01 04:24] LABS: Bacillus cereus group Not Detected (NOT DETECT); Bacillus subtillis group Not Detected (NOT DETECT); Corynebacterium Not Detected (NOT DETECT); Cutibacterium acnes (P.acnes) Not Detected (NOT DETECT); Enterococcus Not Detected (NOT DETECT); Enterococcus faecalis Not Detected (NOT DETECT); Enterococcus faecium Not Detected (NOT DETECT); Lactobacillus species Not Detected (NOT DETECT); Listeria Not Detected (NOT DETECT); Listeria monocytogenes Not Detected (NOT DETECT); Micrococcus Not Detected (NOT DETECT); Pan Candida Not Detected (NOT DETECT); Pan Gram-Negative Not Detected (NOT DETECT); Staphylococcus epidermidis Not Detected (NOT DETECT); Staphylococcus lugdunensis Not Detected (NOT DETECT); Staphylococcus species Not Detected (NOT DETECT); Streptococcus agalactiae Not Detected (NOT DETECT); Streptococcus anginosus group Not Detected (NOT DETECT); Streptococcus pneumoniae Detected (NOT DETECT); Streptococcus pyogenes Not Detected (NOT DETECT); Streptococcus species Detected (NOT DETECT)
[2024-11-01 05:06] LABS: Basophils % 0.2 %; Eosinophils % 0.2 %; Hematocrit 36.7 % (37-53); Lymphocytes % 8.6 %; Mean Corpuscular Hemoglobin 27.2 pg (27-33); Mean Corpuscular Volume 90.8 fl (82-101); Monocytes # 0.6 10^3/uL (0.2-0.9); Neutrophils # 9.65 10^3/uL (1.8-7.7); Neutrophils % 85.5 %; Nucleated Red Blood Cells % 0 %; Platelet Count 143 10^3/cmm (157-399); Red Blood Count 4.04 10^6/uL (3.85-5.65); Red Cell Distribution Width 15.8 % (12.1-15.1); White Blood Count 11.29 10^3/uL (3.29-11.43)
[2024-11-01] MEDS: buPROPion XL (24 HR) 300 mg Tablet PO (05:06)
[2024-11-01 05:40] LABS: Alanine Aminotransferase 20 U/L (0-41); Albumin Level 2.8 g/dL (3.5-5.2); Alkaline Phosphatase 163 U/L (40-130); Anion Gap 16.9 (5-19); Aspartate Amino Transferase 15 U/L (0-40); Blood Urea Nitrogen 28 mg/dL (8-23); Calcium 8.2 mg/dL (8.5-10.5); Carbon Dioxide 21 mmol/L (22-29); Chloride 106 mmol/L (98-107); Creatinine Clr Calc Pharmacy 52.9942; Globulin 3.7 g/dL (1.3-4.6); Glucose 96 mg/dL (65-115); Osmolality Calculated 297 mOsm/kg (285-295); Sodium 141 mmol/L (136-145); Total Bilirubin 1.6 mg/dL (0.15-1.2); Total Protein 6.5 g/dL (6.6-8.7)
[2024-11-01 05:48] LABS: Potassium 2.9 mmol/L (3.5-5.1)
[2024-11-01] MEDS: lidocaine 1% 5 ML in potassium chloride premix 100 ML 26.25 ML IV (06:42)
[2024-11-01] MEDS: aspirin 81 mg EC Tablet PO (08:43)
[2024-11-01] MEDS: tamsulosin 0.4 mg Capsule PO (08:43)
[2024-11-01] MEDS: fluticasone nasal spray 16gm Btl 2 SPRAY INTRANASAL (08:43)
[2024-11-01] MEDS: desvenlafaxine 50 mg Tablet 100 MG PO (08:43)
[2024-11-01] MEDS: memantine 5 mg tablet 10 MG PO ×2 (08:43→17:25)
--- NOTE | 2024-11-01 12:40 | PC.NURSE ---
ST recommended regular diet if patient could have his teeth. Called [facility] which patient resides at and [facility] delivered patients teeth. Regular diet order placed per ST recommendations.
[2024-11-01] MEDS: enoxaparin 40 mg/0.4 mL Syringe SUBCUT (13:56)
--- NOTE | 2024-11-01 19:58 | PC.NURSE ---
Patient transferred by wheelchair to room 256-1, report given to Radha WHATLEY. Patient without transfer without distress or concerns.
--- NOTE | 2024-11-01 20:46 | PM.PN ---
Subjective Subjective: He is awake and alert today. Conversant, much better in terms of mental status. Family members seeing me yesterday. Has weaned off BiPAP. Having productive cough. Has not been vomiting. Denies any overt aspiration. Vitals/I&O/Wt Last Vital Signs Temp 98.4 F 11/01/24 20:00 Pulse 67 11/01/24 20:00 Resp 19 H 11/01/24 20:00 BP 138/60 11/01/24 20:00 Pulse Ox 98 11/01/24 20:00 O2 Del Method Nasal Cannula 11/01/24 20:00 O2 Flow Rate 2 11/01/24 20:00 FiO2 40 11/01/24 07:32 11/01/24 11/01/24 11/01/24 06:59 14:59 22:59 Intake Total 780 / 4055 495 / 495 300 / 795 Output Total 1025 / 1975 1200 / 1200 Balance -245 / 2080 495 / 495 -900 / -405 Weight last 48 hrs Weight 108.046 kg Weight 109.8 kg Weight 108.862 kg Physical Exam Narrative: Today he is awake, alert, pleasant, conversant. Const: COMMON NORMALS: patient oriented x3 and alert GENERAL APPEARANCE: cooperative HENMT: COMMON NORMALS: oropharynx normal Neck/C-Spine: COMMON NORMALS: no JVD Resp: COMMON NORMALS: normal respiratory effort AUSCULTATION: diminished lung sounds on the left Cardio: COMMON NORMALS: no JVD, regular rhythm, S1 normal heart sound present, S2 normal heart sound present and No murmurs present (Cardio) RHYTHM: regular rhythm HEART SOUNDS: S1 normal heart sound present and S2 normal heart sound present GI: COMMON NORMALS: Normal to inspection, nondistended, normoactive bowel sounds present, Soft to palpation and non-tender PALPATION: Yes Soft to palpation Extremity: NARRATIVE EXTREMITY EXAM: 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 Small amount of eschar/clot at wound edge. No eviednce of dehiscence. No surrounding redness, swellling. Neuro: COMMON NORMALS: patient oriented x3 and moves all extremities SENSORIUM/ORIENTATION: Yes alert Urinary Catheter Management: Gillespie: Cath Placed During This Visit: yes Reason for Continuing Indwelling Catheter: Accurate Measurement of Urinary Output in Critically Ill Patients Urinary Catheter Date of Insertion: 10/31/24 Urinary Catheter Time of Insertion: 11:51 Data 11/01/24 04:57 11/01/24 04:57 Micro: Microbiology 10/31/24 16:00 Bacterial Antigens - Final Urine Kidney 10/31/24 08:30 Blood Culture - Preliminary Blood NEGATIVE TO DATE 10/31/24 08:37 Blood Culture - Preliminary Blood 10/31/24 16:00 Legionella Urinary Antigen - Final Urine Catheterized A&P Assessment and plan (1) Pneumonia: Extensive pneumonia of left lung, denies vomiting and denies overt aspiration. Sepsis 04 resolving. Leukocytosis resolved. Tachypnea improved. So far fever is improving, highest 99.8 overnight. Did wean off BiPAP, but requiring 6 L nasal cannula oxygen. Pending bed opening to [facility] for further assessment and bronchoscopy. Complicated by gram-positive bacteremia 1/4 bottles with gram-positive cocci in pairs. Follow-up blood culture. Discussed with respiratory therapy, nursing, correctional case records supervisor. (2) Sepsis: Sepsis so far showing resolution. Acute metabolic encephalopathy resolved. MECHE showing improvement, creatinine down to 1.8, BUN 28. Reviewed sputum culture, MRSA PCR, urine bacterial antigens. Urine bacterial antigens, urine Legionella antigens negative. Blood culture on review with gram-positive cocci in pairs. 1/4 bottles. 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 Continue vancomycin. Monitor for risk of kidney injury. Risk of C. difficile. (3) Acute respiratory failure with hypoxemia: Oxygen saturation presentation down to 81%, tachypnea, with sepsis as above. ABG 7.36/42.2/41.8. Weaned off BiPAP support. Treat pneumonia as above. Continue BiPAP as needed, wean off as tolerating. Continue support oxygenation. Transfer out of ICU. (4) Ground glass opacity present on imaging of lung: Neoplasm not excluded at this time. Will need follow-up for resolution. Plan MECHE on CKD: Reviewed BUN, creatinine, bicarb, anion gap. Renal function improving. Suspect related to sepsis as above. Received fluid challenge in ER. Reassess renal function. Monitor intake and output. Hyperbilirubinemia: Bilirubin up to 1.3. Without GI symptoms. No abdominal pain or tenderness on palpation. Possible mild cholestasis secondary to sepsis. Alk phos slightly higher than usual 247 although chronically elevated, possibly secondary to the same. Reassess liver parameters. Hypomagnesemia: Replace. Recheck level. Recent toe amputation and foot infection: Cellulitis has resolved. Right second toe wound without any surrounding erythema, no drainage or bleeding. Follow-up with podiatry. Attestations Medical Necessity Statement*: Continue admission for assessment of management of respiratory failure, extensive pneumonia complicated by gram-positive cocci bacteremia. Diagnoses Pneumonia J18.9 Sepsis A41.9 Acute respiratory failure with hypoxemia J96.01 Ground glass opacity present on imaging of lung R91.8
[2024-11-02] VITALS (7 sets, daily range): BP systolic 100–129; BP diastolic 54–75; PULSE 48–61; RESP 16–20; TEMP 36.6–37; O2SAT 93–97
[2024-11-02] MEDS: VANCOMYCIN ADD-Vantage 750 MG in 0.9% NaCl ADD-Vantage 250 ML 250 MG IV ×2 (02:50→14:36)
[2024-11-02 05:25] LABS: Basophils % 0.4 %; Eosinophils # 0.1 10^3/uL (0.0-0.8); Eosinophils % 1.2 %; Hematocrit 33.7 % (37-53); Lymphocytes # 1.4 10^3/uL (0.8-4.8); Lymphocytes % 19.2 %; Mean Corpuscular HGB Conc 29.1 g/dL (30-55); Mean Corpuscular Volume 92.8 fl (82-101); Mean Platelet Volume 10.2 fL (7.4-10.4); Monocytes # 0.6 10^3/uL (0.2-0.9); Monocytes % 7.3 %; Neutrophils # 5.36 10^3/uL (1.8-7.7); Neutrophils % 71.4 %; Nucleated Red Blood Cells % 0 %; Platelet Count 132 10^3/cmm (157-399); Red Blood Count 3.63 10^6/uL (3.85-5.65); Red Cell Distribution Width 15.9 % (12.1-15.1); White Blood Count 7.51 10^3/uL (3.29-11.43)
[2024-11-02 05:39] LABS: Alanine Aminotransferase 14 U/L (0-41); Albumin Level 2.4 g/dL (3.5-5.2); Alkaline Phosphatase 140 U/L (40-130); Anion Gap 15.9 (5-19); Aspartate Amino Transferase 11 U/L (0-40); Blood Urea Nitrogen 24 mg/dL (8-23); Calcium 8.2 mg/dL (8.5-10.5); Carbon Dioxide 21 mmol/L (22-29); Chloride 106 mmol/L (98-107); Creatinine Clr Calc Pharmacy 65.2236; Globulin 3.7 g/dL (1.3-4.6); Glucose 98 mg/dL (65-115); Osmolality Calculated 294 mOsm/kg (285-295); Sodium 140 mmol/L (136-145); Total Bilirubin 0.8 mg/dL (0.15-1.2); Total Protein 6.1 g/dL (6.6-8.7)
[2024-11-02 05:41] LABS: Potassium 2.9 mmol/L (3.5-5.1)
[2024-11-02] MEDS: lidocaine 1% 5 ML in potassium chloride premix 100 ML 26.25 ML IV (06:17)
[2024-11-02] MEDS: buPROPion XL (24 HR) 300 mg Tablet PO (06:17)
[2024-11-02] MEDS: piperacillin-tazobactam 3.375 GM in sodium chloride 0.9% (plus) 50 ML IV (08:03)
[2024-11-02] MEDS: memantine 5 mg tablet 10 MG PO (08:04)
[2024-11-02] MEDS: fluticasone nasal spray 16gm Btl 2 SPRAY INTRANASAL (08:04)
[2024-11-02] MEDS: tamsulosin 0.4 mg Capsule PO (08:04)
[2024-11-02] MEDS: aspirin 81 mg EC Tablet PO (08:04)
[2024-11-02] MEDS: desvenlafaxine 50 mg Tablet 100 MG PO (08:16)
--- NOTE | 2024-11-02 10:32 | PC.SOCIAL ---
IMM Update Pg. 2 of IMM updated. Initialed, dated, and timed, copy placed in chart. Copy provided at bedside.
--- NOTE | 2024-11-02 13:39 | PC.NURSE ---
Called report to PHYLICIA Jerry at [phone].
[2024-11-02] MEDS: enoxaparin 40 mg/0.4 mL Syringe SUBCUT (14:36)
[2024-11-02 15:05] LABS: Vancomycin Trough 23.1 ug/mL (10-15)
--- NOTE | 2024-11-02 20:49 | P.TS_ITS ---
Transfer Summary Providers Date of Admission: 10/31/24 11:48 Date of Discharge/Transfer: 11/02/24 Attending Provider at Admission: Ad Yen Attending Provider at Transfer: Ad Yen Primary Care Provider: PAT Herbert Transfer Plans: Anticipated date of transfer: 11/02/24 . Diagnoses at Discharge Discharge Diagnosis (1) Pneumonia: Status: Acute (2) Sepsis: Status: Acute (3) Acute respiratory failure with hypoxemia: Status: Acute (4) Ground glass opacity present on imaging of lung: Status: Acute Reason for Visit Reason for Visit ams Brief History: 74-year-old gentleman with HTN, RLS, BPH, COPD on chronic 3 L oxygen, former smoker, had not smoked for a long time but recently picked it up again, sacral pressure sore, was recently hospitalized for further assessment and management of right foot infection, with finding of osteomyelitis,, undergoing imitation of right second toe, received treatment with antibiotics. Incidentally also found to have moderate cognitive impairment by BIMS. Post discharge she was transferred to SNF on 10/12. He was evaluated in ER today, sent over from halfway with altered mental status, in ER with fever 103 Fahrenheit, shortness of breath, confusion, with finding of coarse breath sounds. With leukocytosis 17.49, fever 103.1, chest x- ray with dense opacity and volume loss of left lung which could be chronic but also could represent pneumonia, atelectasis or effusion. With hypoxia down to 81%, was started on BiPAP support. CT angiogram chest showed no evidence of PE. Prior left upper lobectomy. Volume loss of left lung. Partial consolidation with volume loss in the lingula and left lower lobe. Patchy interstitial edema with infiltrates in the residual aerated left upper lobe. Additional wedge- shaped infiltrate with subsegmental atelectasis in the right lower lobe with surrounding hazy groundglass infiltrates. Infectious versus inflammatory. Recommended follow-up to resolution to exclude underlying neoplasm. COVID, influenza, RSV PCR negative. His breathing so far has improved with BiPAP, and he is able to wake up to answer a few questions. He does not remember having any overt aspiration, but is not sure. Arrangements for transfer attempted in ER for further bronchoscopy and pulmonary assessment, however, bed could not be secured. Placed on a waiting list to [facility]. For now as per discussion with his brother admission here to intensive care unit pending bed availability. Hospital Course Hospital Course He was admitted to intensive care unit initially with continued BiPAP support, with empiric antibiotic treatment with Zosyn, Comycin, with improvement in mental status, was able to wean off BiPAP, continued requiring oxygen. Not normally on oxygen, however continued to require 4-6 L nasal cannula. Additionally blood cultures come back positive for gram-positive cocci in 1/4 bottles, which identified as strep pneumonia. Pneumonia complicated by bacteremia. Slow recovery with continued oxygenation. With extensive pneumonia of left lung. Groundglass opacity right lower lung, as discussed with him and his brother, neoplasm not excluded at current time. History of lung cancer with left upper lobe resection. MRSA PCR was detected. Repeat blood cultures pending. Was pending transfer for additional pulmonary assessment, bronchoscopy to [facility], and a bed became available today. MECHE improved. Hyperbilirubinemia improved. Physical Exam Narrative: Today he is awake, alert, pleasant, conversant. Const: COMMON NORMALS: patient oriented x3 and alert GENERAL APPEARANCE: cooperative HENMT: COMMON NORMALS: oropharynx normal Neck/C-Spine: COMMON NORMALS: no JVD Resp: COMMON NORMALS: normal respiratory effort and clear to auscultation bilaterally AUSCULTATION: clear to auscultation bilaterally and diminished lung sounds on the left Cardio: COMMON NORMALS: no JVD, regular rhythm, S1 normal heart sound present, S2 normal heart sound present and No murmurs present (Cardio) RHYTHM: regular rhythm HEART SOUNDS: S1 normal heart sound present and S2 normal heart sound present GI: COMMON NORMALS: Normal to inspection, nondistended, normoactive bowel sounds present, Soft to palpation and non-tender PALPATION: Yes Soft to palpation Extremity: NARRATIVE EXTREMITY EXAM: 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 Small amount of eschar/clot at wound edge. No eviednce of dehiscence. No surrounding redness, swellling. Neuro: COMMON NORMALS: patient oriented x3 and moves all extremities SENSORIUM/ORIENTATION: Yes alert Urinary Catheter Management: Gillespie: Cath Placed During This Visit: yes Reason for Continuing Indwelling Catheter: Acute Urinary Retention or Obstruction Urinary Catheter Date of Insertion: 10/31/24 Urinary Catheter Time of Insertion: 11:51 TS Data Studies Completed and Pending Pending at discharge Category Date Time Status Blood Culture Stat Lab 10/31/24 08:37 Results Completed Studies During Hospitalization Category Date Time Status CTA chest [CT angio chest PE protcl [id number]] Stat Cat Scan 10/31/24 08:46 Completed XR chest 1V portable [id number] Stat Exams 10/31/24 08:15 Completed Laboratory Last Values WBC 7.51 10^3/uL (3.29-11.43) 11/02/24 05:17 RBC 3.63 10^6/uL (3.85-5.65) L 11/02/24 05:17 Hgb 9.80 g/dL (11.27-16.99) L 11/02/24 05:17 Hct 33.7 % (37-53) L 11/02/24 05:17 MCV 92.8 fl (82-101) 11/02/24 05:17 MCH 27.0 pg (27-33) 11/02/24 05:17 MCHC 29.1 g/dL (30-55) L 11/02/24 05:17 RDW 15.9 % (12.1-15.1) H 11/02/24 05:17 Plt Count 132 10^3/cmm (157-399) L 11/02/24 05:17 MPV 10.2 fL (7.4-10.4) 11/02/24 05:17 Neut % (Auto) 71.4 % 11/02/24 05:17 Lymph % (Auto) 19.2 % 11/02/24 05:17 [place] % (Auto) 7.3 % 11/02/24 05:17 Eos % (Auto) 1.2 % 11/02/24 05:17 Baso % (Auto) 0.4 % 11/02/24 05:17 Neut # (Auto) 5.36 10^3/uL (1.8-7.7) 11/02/24 05:17 Lymph # (Auto) 1.4 10^3/uL (0.8-4.8) 11/02/24 05:17 [place] # (Auto) 0.6 10^3/uL (0.2-0.9) 11/02/24 05:17 Eos # (Auto) 0.1 10^3/uL (0.0-0.8) 11/02/24 05:17 Baso # (Auto) 0.0 10^3/uL (0.0-0.1) 11/02/24 05:17 Nucleated RBC % (auto) 0 % 11/02/24 05:17 Nucleated RBCs # 0.0 /100WBC 11/02/24 05:17 PT 15.40 SECONDS (12.1-14.9) H 10/31/24 08:30 INR 1.18 (0.8-1.2) 10/31/24 08:30 Specimen Type Arterial 10/31/24 08:10 Sample Site Radial, left 10/31/24 08:10 ABG pH 7.36 (7.35-7.45) 10/31/24 08:10 ABG pCO2 42.2 mmHg (35-45) 10/31/24 08:10 ABG pO2 41.8 mmHg (80.0-100.0) L 10/31/24 08:10 ABG HCO3 23.9 mmol/L (22-26) 10/31/24 08:10 ABG O2 Saturation 77.3 10/31/24 08:10 ABG Base Excess -1.6 mmol/L (-2.0-2.0) 10/31/24 08:10 Riky Test Pos 10/31/24 08:10 A-a O2 Gradient 7.2 mmHg (5-10) 10/31/24 08:10 Hematocrit 39.6 % (42-52) L 10/31/24 08:10 Hgb O2 Saturation 74.9 % (95-100) L 10/31/24 08:10 Carboxyhemoglobin 2.3 %THgb (0.4-20.1) 10/31/24 08:10 Methemoglobin 0.8 % (0.4-1.5) 10/31/24 08:10 Total Hemoglobin 12.9 g/dL (14-18) L 10/31/24 08:10 Sodium 144.0 mmol/L (131-143) H 10/31/24 08:10 Potassium 3.2 mmol/L (3.5-5.0) L 10/31/24 08:10 Glucose 120.0 mg/dL (70-115) H 10/31/24 08:10 Ionized Calcium 1.1 mmol/L (1.1-1.4) 10/31/24 08:10 O2 Delivery Device Cont neb 10/31/24 08:10 O2 Liters/Min 5.0 % 10/31/24 08:10 Victims Advocate Clerk/Specialist ID Luis Daniel 10/31/24 08:10 Sodium 140 mmol/L (136-145) 11/02/24 05:17 Potassium 2.9 mmol/L (3.5-5.1) L 11/02/24 05:17 Chloride 106 mmol/L (98-107) 11/02/24 05:17 Carbon Dioxide 21 mmol/L (22-29) L 11/02/24 05:17 Anion Gap 15.9 (5-19) 11/02/24 05:17 BUN 24 mg/dL (8-23) H 11/02/24 05:17 Creatinine 1.3 mg/dL (0.7-1.2) H 11/02/24 05:17 GFR Calculation Not Reportable 11/02/24 05:17 Glucose 98 mg/dL (65-115) 11/02/24 05:17 Calculated Osmolality 294 mOsm/kg (285-295) 11/02/24 05:17 Lactic Acid 1.1 mmol/L (0.5-2.2) 10/31/24 08:30 Calcium 8.2 mg/dL (8.5-10.5) L 11/02/24 05:17 Magnesium 2.0 mg/dL (1.7-2.3) 11/02/24 05:17 Total Bilirubin 0.8 mg/dL (0.15-1.2) 11/02/24 05:17 AST 11 U/L (0-40) 11/02/24 05:17 ALT 14 U/L (0-41) 11/02/24 05:17 Alkaline Phosphatase 140 U/L (40-130) H 11/02/24 05:17 NT-Pro-B Natriuret Pep 3096 pg/mL (0-125) H 10/31/24 08:30 Total Protein 6.1 g/dL (6.6-8.7) L 11/02/24 05:17 Albumin 2.4 g/dL (3.5-5.2) L 11/02/24 05:17 Globulin 3.7 g/dL (1.3-4.6) 11/02/24 05:17 Urine Color Dark yellow (Yellow) A 10/31/24 11:47 Urine Appearance Clear (CLEAR) 10/31/24 11:47 Urine pH 5.5 (5-7) 10/31/24 11:47 Ur Specific [place] 1.019 (1.005-1.030) 10/31/24 11:47 Urine Protein Trace (Negative) A 10/31/24 11:47 Urine Glucose (UA) 3+ (Normal) H 10/31/24 11:47 Urine Ketones Negative (Negative) 10/31/24 11:47 Urine Blood Negative (Negative) 10/31/24 11:47 Urine Nitrate Negative (Negative) 10/31/24 11:47 Urine Bilirubin Negative (Negative) 10/31/24 11:47 Urine Urobilinogen 1.0 mg/dL (Negative) 10/31/24 11:47 Ur Leukocyte Esterase Negative (Negative) 10/31/24 11:47 Urine RBC 0-2 /hpf (0-2) 10/31/24 11:47 Urine WBC 0-5 /hpf (0-5) 10/31/24 11:47 Ur Squamous Epith Cells 0-5 /hpf (0-5) 10/31/24 11:47 Amorphous Sediment Not Reportable 10/31/24 11:47 Urine Bacteria None seen /hpf (NONE) 10/31/24 11:47 Hyaline Casts 9.51 /lpf 10/31/24 11:47 Nasal MRSA (PCR) Mrsa detected (Negative) A 10/31/24 16:00 Vancomycin Trough 23.1 ug/mL (10-15) H 11/02/24 14:08 Urine Opiates Screen Negative ng/mL (Negative) 10/31/24 11:47 Ur Barbiturates Screen Negative ng/mL (Negative) 10/31/24 11:47 Ur Phencyclidine Scrn Negative ng/mL (Negative) 10/31/24 11:47 Ur Amphetamines Screen Negative ng/mL (Negative) 10/31/24 11:47 U Benzodiazepines Scrn Negative ng/mL (Negative) 10/31/24 11:47 Urine Cocaine Screen Negative ng/mL (Negative) 10/31/24 11:47 U Marijuana (THC) Screen Positive ng/mL (Negative) H 10/31/24 11:47 Coronavirus (PCR) Negative (Negative) 10/31/24 08:32 Influenza A (PCR) Negative (Negative) 10/31/24 08:32 Influenza Type B (PCR) Negative (Negative) 10/31/24 08:32 RSV (PCR) Negative (Negative) 10/31/24 08:32 Radiology Impressions Chest X-Ray 10/31/24 08:15 Impression: 1. Dense opacity and volume loss of the left lung which could be chronic but a lso could represent pneumonia, atelectasis or effusion. 2. The right lung shows no nodules, masses or effusions. Chest CTA 10/31/24 08:46 IMPRESSION: 1. No evidence of pulmonary embolus. 2. Evidence of prior LEFT upper lobectomy presumed due to prior lung cancer resection. Volume loss LEFT lung. 3. Partial consolidation with volume loss in the lingula and LEFT lower lobe. Recommend correlation for pneumonia symptoms. This should be followed up with bronchoscopy. 4. Patchy interstitial edema with infiltrates in the residual LEFT aerated LEFT upper lobe 5. Additional wedge-shaped infiltrate with subsegmental atelectasis in the RIGHT lower lobe with surrounding hazy groundglass infiltrates. This may be infectious or inflammatory. Recommend follow-up to resolution to exclude underlying neoplasm. Recent Clincial Data Last Vital Signs Temp 98.0 F 11/02/24 16:59 Pulse 52 L 11/02/24 16:59 Resp 16 11/02/24 16:59 BP 129/57 11/02/24 16:59 Pulse Ox 97 11/02/24 16:59 O2 Del Method Nasal Cannula 11/02/24 12:00 O2 Flow Rate 4 11/02/24 08:00 FiO2 40 11/01/24 07:32 Vital Signs Temp Pulse Resp BP Pulse Ox O2 Del Method 11/02/24 16:59 98.0 F 52 L 16 129/57 97 11/02/24 12:00 98.0 F 52 L 16 129/57 97 Nasal Cannula Intake & Output/Weight 10/31/24 11/01/24 11/02/24 11/03/24 06:59 06:59 06:59 06:59 Intake Total 4055 / 4055 1455 / 1455 240 / 240 Output Total 1974 / 1974 2600 / 2600 1300 / 1300 Balance 2080 / 208 -1145 / -1145 -1060 / -1060 Weight 108.046 kg 108.59 kg Vitals Last Vital Signs Temp 98.0 F 11/02/24 16:59 Pulse 52 L 11/02/24 16:59 Resp 16 11/02/24 16:59 BP 129/57 11/02/24 16:59 Pulse Ox 97 11/02/24 16:59 O2 Del Method Nasal Cannula 11/02/24 12:00 O2 Flow Rate 4 11/02/24 08:00 FiO2 40 11/01/24 07:32 TS Medications Medications Discontinued Medications Acetaminophen (Acetaminophen 500 Mg Tablet) 1,000 mg PO ONCE ONE Stop: 10/31/24 08:16 Last Admin: 10/31/24 08:35 Dose: Not Given Acetaminophen (Acetaminophen 325 Mg Tablet) 650 mg PO Q6H PRN PRN Reason: Mild/Mod Pain Or Temp >/= 101 Albuterol/Ipratropium (Ipratropium-Albuterol 3 Ml Neb) 3 ml INHALATION Q6H PRN PRN Reason: SHORTNESS OF BREATH Aspirin (Aspirin 81 Mg Ec Tablet) 81 mg PO DAILY [facility] Last Admin: 11/02/24 08:04 Dose: 81 mg Bupropion HCl (Bupropion Xl (24 Hr) 300 Mg Tablet) 300 mg PO QAM [facility] Last Admin: 11/02/24 06:17 Dose: 300 mg Desvenlafaxine (Desvenlafaxine 50 Mg Tablet) 100 mg PO DAILY [facility] Last Admin: 11/02/24 08:16 Dose: 100 mg Enoxaparin Sodium (Enoxaparin 40 Mg/0.4 Ml Syringe) 40 mg SUBCUT Q24H [facility] Last Admin: 11/02/24 14:36 Dose: 40 mg Fluticasone Propionate (Fluticasone Nasal [place] 16gm Btl) 2 spray INTRANASAL DAILY [facility] Last Admin: 11/02/24 08:04 Dose: 2 spray Sodium Chloride (Sodium Chloride 0.9%) 1,000 mls @ 999 mls/hr IV .Q1H1M [facility] Stop: 10/31/24 10:15 Last Admin: 10/31/24 09:26 Dose: Not Given Vancomycin HCl 1,000 mg/ (Sodium Chloride) 250 mls @ 250 mls/hr IV ONCE ONE; Protocol Stop: 10/31/24 09:21 Last Infusion: 10/31/24 09:54 Dose: Infused Piperacillin Sod/Tazobactam (Sod 3.375 gm/ Sodium Chloride) 50 mls @ 100 mls/hr IV ONCE ONE; Protocol Stop: 10/31/24 08:51 Last Infusion: 10/31/24 09:24 Dose: Infused Acetaminophen (Acetaminophen) 1,000 mg in 100 mls @ 400 mls/hr IV ONCE ONE Stop: 10/31/24 08:39 Last Infusion: 10/31/24 08:54 Dose: Infused Piperacillin Sod/Tazobactam (Sod 3.375 gm/ Sodium Chloride) 50 mls @ 12.5 mls/hr IV Q8H IVAN; Protocol Last Admin: 11/02/24 08:03 Dose: 12.5 mls/hr Vancomycin HCl (Vancocin) 3,000 mg in 600 mls @ 200 mls/hr IV ONCE ONE Stop: 10/31/24 17:59 Last Infusion: 10/31/24 18:28 Dose: Infused Vancomycin HCl 750 mg/ Sodium (Chloride) 250 mls @ 250 mls/hr IV Q12H IVAN Last Admin: 11/02/24 14:36 Dose: 250 mls/hr Magnesium Sulfate (Magnesium Sulfate Premix) 2 gm in 50 mls @ 50 mls/hr IV ONCE ONE Stop: 10/31/24 16:14 Last Infusion: 10/31/24 17:12 Dose: Infused Lidocaine HCl 5 ml/ Potassium (Chloride) 105 mls @ 26.25 mls/hr IV ONCE ONE Stop: 11/01/24 10:14 Last Infusion: 11/01/24 11:08 Dose: Infused Lidocaine HCl 5 ml/ Potassium (Chloride) 105 mls @ 26.25 mls/hr IV ONCE ONE Stop: 11/02/24 09:59 Last Admin: 11/02/24 06:17 Dose: 26.25 mls/hr Vancomycin HCl 1,000 mg/ (Sodium Chloride) 250 mls @ 250 mls/hr IV Q24H IVAN; Protocol Vancomycin HCl (Vancocin) 1,500 mg in 300 mls @ 200 mls/hr IV Q24H IVAN Iohexol (Iohexol 350 Mg/Ml 500 Ml Btl (Per Ml)) 0 ml IV ONCE ONE Stop: 10/31/24 09:49 Last Admin: 10/31/24 09:48 Dose: 100 ml Memantine (Memantine 5 Mg Tablet) 10 mg PO BID [facility] Last Admin: 11/02/24 08:04 Dose: 10 mg Ondansetron HCl (Ondansetron 2 Mg/Ml Sdv 2 Ml) 4 mg IVP Q8H PRN PRN Reason: vomiting, or N/V if npo Tamsulosin HCl (Tamsulosin 0.4 Mg Capsule) 0.4 mg PO DAILY [facility] Last Admin: 11/02/24 08:04 Dose: 0.4 mg Allergies No Known Allergies Allergy (Verified 10/09/24 11:55) Home Medications buprenorphine 8 mg-naloxone 2 mg sublingual film 2 film buccal DAILY 10/09/24 [History Confirmed 10/31/24] bupropion HCl 300 mg 24 hr tablet, extended release 300 mg PO QAM 10/09/24 [History Confirmed 10/31/24] dapagliflozin propanediol 10 mg tablet ([facility]) 10 mg PO QAM 10/09/24 [History Confirmed 10/31/24] desvenlafaxine succinate 100 mg tablet,extended release 24 hr 100 mg PO DAILY 10/09/24 [History Confirmed 10/31/24] fluticasone propionate 50 mcg/actuation nasal spray,suspension 2 spray intranasal DAILY 10/09/24 [History Confirmed 10/31/24] memantine 10 mg tablet 10 mg PO BID 10/09/24 [History Confirmed 10/31/24] ondansetron 4 mg disintegrating tablet 4 mg PO Q8H 10/09/24 [History Confirmed 10/31/24] pramipexole 0.5 mg tablet 0.5 mg PO BID 10/09/24 [History Confirmed 10/31/24] pregabalin 150 mg capsule 150 mg PO Q8H 10/09/24 [History Confirmed 10/31/24] tamsulosin 0.4 mg capsule 0.4 mg PO DAILY 10/09/24 [History Confirmed 10/31/24] amlodipine 10 mg tablet 10 mg PO DAILY #30 tabs 10/12/24 [Rx Confirmed 10/31/24] aspirin 81 mg tablet,delayed release 81 mg PO DAILY #30 tabs 10/12/24 [Rx Confirmed 10/31/24] chlorthalidone 25 mg tablet 12.5 mg (1/2 x 25 mg) PO DAILY #30 tabs 10/12/24 [Rx Confirmed 10/31/24] Discharge Plan Discharge Patient Disposition: Xfer Short-Term Hosp Condition: Stable Prescriptions: No Action pramipexole 0.5 mg tablet 0.5 mg PO BID tamsulosin 0.4 mg capsule 0.4 mg PO DAILY ondansetron 4 mg tablet,disintegrating 4 mg PO Q8H fluticasone propionate 50 mcg/actuation spray,suspension 2 spray INTRANASAL DAILY bupropion HCl 300 mg tablet extended release 24 hr 300 mg PO QAM memantine 10 mg tablet 10 mg PO BID pregabalin 150 mg capsule 150 mg PO Q8H desvenlafaxine succinate 100 mg tablet extended release 24 hr 100 mg PO DAILY buprenorphine-naloxone 8-2 mg film 2 film buccal DAILY dapagliflozin propanediol [Farxiga] 10 mg tablet 10 mg PO QAM chlorthalidone 25 mg Tablet 12.5 mg PO DAILY Qty: 30 0RF aspirin 81 mg Tablet,Delayed Release (Dr/Ec) 81 mg PO DAILY Qty: 30 0RF amlodipine 10 mg Tablet 10 mg PO DAILY Qty: 30 0RF Referrals: Alecia Miranda FNP [Primary Care Provider] - Patient Instructions: Opioid Safety Transfer Attestations Time Spent in Transfer Care: greater than 30 min Status at Transfer: Cognitive status at transfer: mildly impaired cognition ; Behavioral status at transfer: cooperative ; Quality Metrics Clinical Quality Measures [ No reported AMI, CVA or VTE this stay] Coding Level of Care Code 79519 Total time (in minutes) for Discharge: 50 Diagnoses Pneumonia J18.9 Sepsis A41.9 Acute respiratory failure with hypoxemia J96.01 Ground glass opacity present on imaging of lung R91.8
== END 2024-11-02 15:20 | disposition short-term general hospital (02) | DRG 871 ==
LOC: ER 11:44 → ICU 11:48 → MEDSURG 11-01 19:54
PROVIDERS: Admitting Provider Internal Medicine; Emergency Provider Emergency Medicine; PCP Nurse Practitioner Family; Visit Provider Internal Medicine
DX: A40.3 Sepsis due to Streptococcus pneumoniae (principal); G93.41 Metabolic encephalopathy; R65.20 Severe sepsis without septic shock; J96.21 Acute and chronic respiratory failure with hypoxia; J18.9 Pneumonia, unspecified organism; N17.9 Acute kidney failure, unspecified; I13.0 Hypertensive heart and chronic kidney disease with heart failure and stage 1 through stage 4 chronic kidney disease, or unspecified chronic kidney disease; I50.32 Chronic diastolic (congestive) heart failure; J98.11 Atelectasis; J44.0 Chronic obstructive pulmonary disease with (acute) lower respiratory infection; Z22.322 Carrier or suspected carrier of Methicillin resistant Staphylococcus aureus; F17.200 Nicotine dependence, unspecified, uncomplicated; N18.30 Chronic kidney disease, stage 3 unspecified; E80.6 Other disorders of bilirubin metabolism; E83.42 Hypomagnesemia; L89.312 Pressure ulcer of right buttock, stage 2; G31.84 Mild cognitive impairment of uncertain or unknown etiology; N40.0 Benign prostatic hyperplasia without lower urinary tract symptoms; G25.81 Restless legs syndrome; Z75.1 Person awaiting admission to adequate facility elsewhere; Z11.52 Encounter for screening for COVID-19; Z99.81 Dependence on supplemental oxygen; Z85.118 Personal history of other malignant neoplasm of bronchus and lung; Z79.51 Long term (current) use of inhaled steroids; Z79.84 Long term (current) use of oral hypoglycemic drugs; Z79.891 Long term (current) use of opiate analgesic; Z89.411 Acquired absence of right great toe; Z89.421 Acquired absence of other right toe(s); Z90.2 Acquired absence of lung [part of]
CPT/HCPCS: 36415; 36600; 51702; 71045; 71275; 80051; 80053; 80202; 80306; 81001; 82330; 82805; 83605; 83735; 83880; 85025; 85610; 86403; 87040; 87077; 87150; 87186; 87205; 87449; 87637; 92523; 92610; 93005; 94660; 96365; 96367; 96372; 96375; 96376; 97110; 97116; 97161; 99239; 99291; J0131; J1650; J2543; J3370; J3475; J3480; J7030; J7050

== ENCOUNTER 2024-12-01 16:13 | Inpatient (IN) | payer MEDICARE, OTHER, SELFPAY ==
[2024-12-01] VITALS (9 sets, daily range): BP systolic 119–132; BP diastolic 57–68; PULSE 73–86; RESP 17–20; TEMP 37.3–37.7; O2SAT 92–96; BMI 29.0
--- NOTE | 2024-12-01 16:16 | XRR_ITS ---
PROCEDURE INFORMATION: Exam: XR Right Foot Exam date and time: 12/01/2024 4:23 PM Age: 74 years old Clinical indication: Cellulitis; Foot; Right; Prior surgery; Surgery date: 6+ months; Surgery type: Toe removal TECHNIQUE: Imaging protocol: Radiologic exam of the right foot. Views: 3 or more views. COMPARISON: CR XR foot RT min 3V* [id number] 10/09/2024 1:51 PM FINDINGS: Bones/joints: Interval amputation of the 2nd digit phalanges compared to the prior. There is previous amputation of the hallux noted. Surgical arthrodesis between the navicular bone, middle cuneiform and 2nd metatarsal bone redemonstrated without change in alignment. Negative for acute fractures. No aggressive osteolytic lesion identified. Soft tissues: No soft tissue gas. No soft tissue foreign body. No significant soft tissue changes from the comparison. Generalized soft tissue edema. XR/XR foot RT min 3V* [id number] IMPRESSION: Negative for osteomyelitis.
--- NOTE | 2024-12-01 16:39 | ED_ITS ---
HPI - Extremity Problem 2 General: Chief complaint: Extremity Injury, Lower Stated complaint: infected right foot Time Seen by Provider: 12/01/24 16:16 Source: patient and EMS Mode of arrival: EMS Limitations: no limitations History of Present Illness: 74-year-old male who had been admitted e october had an amputation to the left great toe he states that over the last week he has had some increased redness and swelling to the rest of that left foot. He had low-grade fevers as well he had some pain he denies any worse improving factors. Associated symptoms: Deny chest pain, fever(s) or rash Related Data Home Medications Medication Instructions Recorded Confirmed buprenorphine 8 mg-naloxone 2 mg 2 film buccal DAILY 10/09/24 12/01/24 sublingual film bupropion HCl 300 mg 24 hr tablet, 300 mg PO QAM 10/09/24 12/01/24 extended release dapagliflozin propanediol 10 mg 10 mg PO QAM 10/09/24 12/01/24 tablet (Farxiga) desvenlafaxine succinate 100 mg 100 mg PO DAILY 10/09/24 12/01/24 tablet,extended release 24 hr fluticasone propionate 50 2 spray intranasal DAILY 10/09/24 12/01/24 mcg/actuation nasal spray,suspension memantine 10 mg tablet 10 mg PO BID 10/09/24 12/01/24 ondansetron 4 mg disintegrating 4 mg PO Q8H 10/09/24 12/01/24 tablet pramipexole 0.5 mg tablet 0.5 mg PO BID 10/09/24 12/01/24 pregabalin 150 mg capsule 150 mg PO Q8H PRN nerve pain 10/09/24 12/01/24 tamsulosin 0.4 mg capsule 0.4 mg PO DAILY 10/09/24 12/01/24 albuterol sulfate 90 mcg/actuation 2 puff inhalation Q6H PRN 12/01/24 12/01/24 aerosol inhaler Shortness Of Breath amlodipine 2.5 mg tablet 2.5 mg PO DAILY 12/01/24 12/01/24 buspirone 10 mg tablet 10 mg PO BID 12/01/24 12/01/24 furosemide 40 mg tablet 40 mg PO DAILY 12/01/24 12/01/24 ipratropium 20 mcg-albuterol 100 1 puff inhalation DAILY 12/01/24 12/01/24 mcg/actuation mist for inhalation (Combivent Respimat) montelukast 10 mg tablet 10 mg PO DAILY 12/01/24 12/01/24 omeprazole 20 mg capsule,delayed 20 mg PO DAILY 12/01/24 12/01/24 release roflumilast 500 mcg tablet 500 mcg PO DAILY 12/01/24 12/01/24 umeclidinium 62.5 mcg-vilanterol 1 inh inhalation BID 12/01/24 12/01/24 25 mcg/actuation powdr for inhalation (Anoro Ellipta) Previous Rx's Medication Instructions Recorded aspirin 81 mg tablet,delayed 81 mg PO DAILY #30 tabs 10/12/24 release chlorthalidone 25 mg tablet 12.5 mg (1/2 x 25 mg) PO DAILY #30 10/12/24 tabs Allergies Allergy/AdvReac Type Severity Reaction Status Date / Time No Known Allergies Allergy Verified 10/09/24 11:55 Review of Systems 2 Const: Denies: fever(s), chills, body aches or change in appetite ENMT: Denies: throat pain or dental pain Card: Denies: chest pain Resp: Denies: dyspnea GI: Denies: abdominal pain, nausea, vomiting or diarrhea Musc: Denies: neck pain or back pain Skin/Breast: Denies: rash Neuro: Denies: headache(s) PFSH ED 2 PFSH: Medical History Peripheral arterial disease CKD (chronic kidney disease), stage III Heart failure with preserved ejection fraction MRSA (methicillin resistant staph aureus) culture positive Lung cancer myelomeningocele History of tibial fracture History of fracture of clavicle Pressure ulcer BPH (benign prostatic hyperplasia) COPD (chronic obstructive pulmonary disease) Restless leg syndrome HTN (hypertension) Surgical History 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 S/P TURP History of lobectomy of lung History of fusion of cervical spine Social History Smoking and tobacco/nicotine status: current every day tobacco/nicotine user Alcohol intake: never Substance/Drug Use: current Substance/Drug use frequency: Special occassions/opportunity only Physical Exam 2 Const: COMMON NORMALS: patient oriented x3 HENMT: COMMON NORMALS: normocephalic and atraumatic HEAD & SCALP: n ormocephalic and atraumatic Eye: COMMON NORMALS: conjunctivae normal CONJUNCTIVA: Yes conjunctivae normal Neck/C-Spine: COMMON NORMALS: full ROM and supple Chest: COMMONS NORMALS: normal inspection of the chest Resp: COMMON NORMALS: normal respiratory effort, No retractions, No use of accessory muscles and clear to auscultation bilaterally AUSCULTATION: clear to auscultation bilaterally Cardio: COMMON NORMALS: regular rate, regular rhythm and No murmurs present (Cardio) RATE: regular rate RHYTHM: regular rhythm Extremity: NARRATIVE EXTREMITY EXAM: Cellulitis noted to left foot he has some Neuro: COMMON NORMALS: patient oriented x3, moves all extremities and no focal motor deficits Psych: COMMON NORMALS: mental status grossly normal, Normal thought process present and cooperative THOUGHT PROCESS: Normal thought process present Skin: COMMON NORMALS: no rashes or lesions noted and no wounds GENERAL SKIN EXAM: no rashes or lesions noted Course 2 Vital Signs: Vital signs: Vital Signs Temperature 99.2 F 12/01/24 16:16 Pulse Rate 85 12/01/24 16:16 Respiratory Rate 17 12/01/24 16:16 Blood Pressure 132/63 12/01/24 16:16 Pulse Oximetry 94 12/01/24 16:16 Oxygen Delivery Me thod Room Air 12/01/24 16:16 MDM - Extremity (Nontraumatic) Medical Decision Making Patient presents here with erythema noted to left foot does have cellulitis to the left foot elevated white count and CRP also was hypokalemic Dr. Marie of podiatry is came by and seen the patient planning on taking the OR tomorrow will start IV antibiotics spoke to hospitalist who will admit. Medical Records I reviewed the patient's medical records. Lab Data I reviewed the patient's lab results. 12/01/24 16:48 12/01/24 16:48 Radiology Impressions Foot X-Ray 12/01/24 16:16 IMPRESSION: Negative for osteomyelitis. Laboratory Results WBC 13.71 10^3/uL (3.29-11.43) H 12/01/24 16:48 RBC 4.28 10^6/uL (3.85-5.65) 12/01/24 16:48 Hgb 11.70 g/dL (11.27-16.99) 12/01/24 16:48 Hct 38.9 % (37-53) 12/01/24 16:48 MCV 90.9 fl (82-101) 12/01/24 16:48 MCH 27.3 pg (27-33) 12/01/24 16:48 MCHC 30.1 g/dL (30-55) 12/01/24 16:48 RDW 14.9 % (12.1-15.1) 12/01/24 16:48 Plt Count 161 10^3/cmm (157-399) 12/01/24 16:48 MPV 9.5 fL (7.4-10.4) 12/01/24 16:48 Neut % (Auto) 89.7 % 12/01/24 16:48 Lymph % (Auto) 4.5 % 12/01/24 16:48 [place] % (Auto) 4.7 % 12/01/24 16:48 Eos % (Auto) 0.4 % 12/01/24 16:48 Baso % (Auto) 0.2 % 12/01/24 16:48 Neut # (Auto) 12.30 10^3/uL (1.8-7.7) H 12/01/24 16:48 Lymph # (Auto) 0.6 10^3/uL (0.8-4.8) L 12/01/24 16:48 [place] # (Auto) 0.6 10^3/uL (0.2-0.9) 12/01/24 16:48 Eos # (Auto) 0.1 10^3/uL (0.0-0.8) 12/01/24 16:48 Baso # (Auto) 0.0 10^3/uL (0.0-0.1) 12/01/24 16:48 Nucleated RBC % (auto) 0 % 12/01/24 16:48 Nucleated RBCs # 0.0 /100WBC 12/01/24 16:48 ESR 19 mm/hr (0-10) H 12/01/24 16:48 Sodium 139 mmol/L (136-145) 12/01/24 16:48 Potassium 2.5 mmol/L (3.5-5.1) L* 12/01/24 16:48 Chloride 101 mmol/L (98-107) 12/01/24 16:48 Carbon Dioxide 24 mmol/L (22-29) 12/01/24 16:48 Anion Gap 16.5 (5-19) 12/01/24 16:48 BUN 30 mg/dL (8-23) H 12/01/24 16:48 Creatinine 1.5 mg/dL (0.7-1.2) H 12/01/24 16:48 GFR Calculation Not Reportable 12/01/24 16:48 Glucose 114 mg/dL (65-115) 12/01/24 16:48 Calculated Osmolality 295 mOsm/kg (285-295) 12/01/24 16:48 Lactic Acid 1.2 mmol/L (0.5-2.2) 12/01/24 16:48 Calcium 8.8 mg/dL (8.5-10.5) 12/01/24 16:48 Total Bilirubin 1.0 mg/dL (0.15-1.2) 12/01/24 16:48 AST 14 U/L (0-40) 12/01/24 16:48 ALT 19 U/L (0-41) 12/01/24 16:48 Alkaline Phosphatase 133 U/L (40-130) H 12/01/24 16:48 C-Reactive Protein 211.1 mg/L (0.0-4.9) H 12/01/24 16:48 Total Protein 7.4 g/dL (6.6-8.7) 12/01/24 16:48 Albumin 3.2 g/dL (3.5-5.2) L 12/01/24 16:48 Globulin 4.2 g/dL (1.3-4.6) 12/01/24 16:48 All radiology interpretation(s) finalized by discharge Discharge Plan Discharge Patient Disposition: Admitted As Inpatient Clinical Impression: Cellulitis of right foot, Hypokalemia Condition: Stable Coding Level of Care Code ED [facility] for Chuck C[facility]ton
--- NOTE | 2024-12-01 16:49 | PC.PHAR ---
Pt states has not taken any of his medications for 2 or 3 weeks. Most were filled last 11/28/24 at [facility]
[2024-12-01 16:54] LABS: Basophils % 0.2 %; Eosinophils # 0.1 10^3/uL (0.0-0.8); Eosinophils % 0.4 %; Hematocrit 38.9 % (37-53); Lymphocytes # 0.6 10^3/uL (0.8-4.8); Lymphocytes % 4.5 %; Mean Corpuscular HGB Conc 30.1 g/dL (30-55); Mean Corpuscular Hemoglobin 27.3 pg (27-33); Mean Corpuscular Volume 90.9 fl (82-101); Mean Platelet Volume 9.5 fL (7.4-10.4); Monocytes # 0.6 10^3/uL (0.2-0.9); Monocytes % 4.7 %; Neutrophils % 89.7 %; Nucleated Red Blood Cells % 0 %; Platelet Count 161 10^3/cmm (157-399); Red Blood Count 4.28 10^6/uL (3.85-5.65); Red Cell Distribution Width 14.9 % (12.1-15.1); White Blood Count 13.71 10^3/uL (3.29-11.43)
--- NOTE | 2024-12-01 16:54 | PM.CONSULT ---
Providers/Reason For Consult Consulting Physician/Specialty*: José Luis Marie D.P.M./podiatry Reason for Consult*: Diabetic foot infection, right Primary Care Provider: PAT Herbert History of Present Illness History of Present Illness Ben Mendoza is a 74 year old male presents to emergency department complaints of wound to the right third toe with redness streaking to the midfoot. Patient is not well, there is pet hair in the wound. Review of Systems General: Reports: 10 or more systems reviewed and unremarkable except in HPI and below Const: Denies: fever(s) or chills Eyes: Denies: change in vision Card: Denies: chest pain or palpitations Resp: Denies: dyspnea or productive cough GI: Denies: abdominal pain, nausea or vomiting : Denies: flank pain Musc: Reports: extremity swelling, joint stiffness and deformity Skin/Breast: Reports: erythema, sores, changes in skin color, dry skin, nail changes and change in hair Neuro: Reports: numbness in extremities, sensory changes and difficulty walking Psych: Denies: suicidal ideation Endo: Denies: change in body appearance Harry/Lymph: Denies: tender lymph nodes Medications/Allergies Home Medications Medication Instructions Recorded Confirmed Last Taken Type buprenorphine 8 mg-naloxone 2 mg 2 film buccal DAILY 10/09/24 12/01/24 10/30/24 History sublingual film bupropion HCl 300 mg 24 hr tablet, 300 mg PO QAM 10/09/24 12/01/24 10/30/24 History extended release dapagliflozin propanediol 10 mg 10 mg PO QAM 10/09/24 12/01/24 10/30/24 History tablet (Farxiga) desvenlafaxine succinate 100 mg 100 mg PO DAILY 10/09/24 12/01/24 10/30/24 History tablet,extended release 24 hr fluticasone propionate 50 2 spray intranasal DAILY 10/09/24 12/01/24 10/30/24 History mcg/actuation nasal spray,suspension memantine 10 mg tablet 10 mg PO BID 10/09/24 12/01/24 10/30/24 History ondansetron 4 mg disintegrating 4 mg PO Q8H 10/09/24 12/01/24 10/30/24 History tablet pramipexole 0.5 mg tablet 0.5 mg PO BID 10/09/24 12/01/24 10/30/24 History pregabalin 150 mg capsule 150 mg PO Q8H PRN nerve pain 10/09/24 12/01/24 10/30/24 History tamsulosin 0.4 mg capsule 0.4 mg PO DAILY 10/09/24 12/01/24 10/30/24 History aspirin 81 mg tablet,delayed 81 mg PO DAILY #30 tabs 10/12/24 12/01/24 10/30/24 Rx release chlorthalidone 25 mg tablet 12.5 mg (1/2 x 25 mg) PO DAILY #30 10/12/24 12/01/24 10/30/24 Rx tabs albuterol sulfate 90 mcg/actuation 2 puff inhalation Q6H PRN 12/01/24 12/01/24 Unknown History aerosol inhaler Shortness Of Breath amlodipine 2.5 mg tablet 2.5 mg PO DAILY 12/01/24 12/01/24 Unknown History buspirone 10 mg tablet 10 mg PO BID 12/01/24 12/01/24 Unknown History furosemide 40 mg tablet 40 mg PO DAILY 12/01/24 12/01/24 Unknown History ipratropium 20 mcg-albuterol 100 1 puff inhalation DAILY 12/01/24 12/01/24 Unknown History mcg/actuation mist for inhalation (Combivent Respimat) montelukast 10 mg tablet 10 mg PO DAILY 12/01/24 12/01/24 Unknown History omeprazole 20 mg capsule,delayed 20 mg PO DAILY 12/01/24 12/01/24 Unknown History release roflumilast 500 mcg tablet 500 mcg PO DAILY 12/01/24 12/01/24 Unknown History umeclidinium 62.5 mcg-vilanterol 1 inh inhalation BID 12/01/24 12/01/24 Unknown History 25 mcg/actuation powdr for inhalation (Anoro Ellipta) Allergies Allergy/AdvReac Type Severity Reaction Status Date / Time No Known Allergies Allergy Verified 10/09/24 11:55 PFSH Acute PFSH: Medical History Peripheral arterial disease CKD (chronic kidney disease), stage III Heart failure with preserved ejection fraction MRSA (methicillin resistant staph aureus) culture positive Lung cancer myelomeningocele History of tibial fracture History of fracture of clavicle Pressure ulcer BPH (benign prostatic hyperplasia) COPD (chronic obstructive pulmonary disease) Restless leg syndrome HTN (hypertension) Surgical History 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 S/P TURP History of lobectomy of lung History of fusion of cervical spine Social History Smoking and tobacco/nicotine status: current every day tobacco/nicotine user Alcohol intake: never Substance/Drug Use: current Substance/Drug use frequency: Special occassions/opportunity only Vitals/I&O/Wt Last Vital Signs Temp 99.2 F 12/01/24 16:16 Pulse 85 12/01/24 16:16 Resp 17 12/01/24 16:16 BP 132/63 12/01/24 16:16 Pulse Ox 94 12/01/24 16:16 O2 Del Method Room Air 12/01/24 16:16 Weight last 48 hrs Weight 220 lb Physical Exam Narrative: Patient is alert and orient x 3 no acute distress Cardiovascular: Diminished pedal pulses bilaterally. Neurological: Absent protective sensation to the bilateral foot. Dermatological: Wound probes to bone distal phalanx right third toe with surrounding erythema wound measures 3 mm x 3 mm x 3 mm with devitalized bone at the distal phalanx able to be visualized. Grade 2 wound right heel exposed to fat layer without erythema warmth or purulence. Abrasion to the dorsal aspect of the left hallux and left second toe. Suture nylon stitch remains intact from right second toe amputation. Musculoskeletal: Hammertoe digits 3 4 and 5 right foot. History of right great toe and first metatarsal amputation. History of right second toe amputation. Const: COMMON NORMALS: no acute distress, patient oriented x3 and alert HENMT: COMMON NORMALS: normocephalic HEAD & SCALP: normocephalic Eye: COMMON NORMALS: Equal, round and reactive pupils present PUPIL: Yes Equal, round and reactive pupils present Resp: COMMON NORMALS: normal respiratory effort, No retractions and No use of accessory muscles Cardio: COMMON NORMALS: regular rate RATE: regular rate Extremity: COMMON NORMALS: no calf tenderness; negative for no pedal edema GENERAL: Yes deformity Neuro: COMMON NORMALS: patient oriented x3 SENSORIUM/ORIENTATION: Yes alert SENSORY EXAM: Yes extremities MONOFILAMENT EXAM PERFORMED: Yes MOTOR EXAM: 5/5 motor strength present throughout Psych: COMMON NORMALS: cooperative Skin: WOUNDS: Yes wounds noted NAILS: discolored, dystrophic and yellow and thickened Data 12/01/24 16:48 12/01/24 16:48 A&P Assessment and plan (1) Cellulitis of right foot: (2) Acute osteomyelitis of right foot: PROCEDURE: Full thickness wound debridement Location: Right third toe Local Anesthesia: none due to neuropathy Consent: Verbal Sterile Prep: with alcohol Details: Full thickness sharp debridement of the wound was performed using sterile dermal curette. The wound was debrided of hyperkeratotic rim and devitalized and fibrotic tissue down to bone, being the deepest level of debridement. 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 Also has a Vasquez grade 2 wound to the right posterior heel. Cellulitis right foot Wound right third toe probes to bone with purulence and surrounding erythema, clinically devitalized bone distal tuft of the distal phalanx. N.p.o. 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
[2024-12-01 16:59] LABS: Erythrocyte Sedimentation Rate 19 mm/hr (0-10)
[2024-12-01 17:12] LABS: Alanine Aminotransferase 19 U/L (0-41); Albumin Level 3.2 g/dL (3.5-5.2); Alkaline Phosphatase 133 U/L (40-130); Anion Gap 16.5 (5-19); Aspartate Amino Transferase 14 U/L (0-40); Blood Urea Nitrogen 30 mg/dL (8-23); C Reactive Protein 211.1 mg/L (0.0-4.9); Calcium 8.8 mg/dL (8.5-10.5); Carbon Dioxide 24 mmol/L (22-29); Chloride 101 mmol/L (98-107); Creatinine Clr Calc Pharmacy 55.3167; Globulin 4.2 g/dL (1.3-4.6); Glucose 114 mg/dL (65-115); Osmolality Calculated 295 mOsm/kg (285-295); Sodium 139 mmol/L (136-145); Total Protein 7.4 g/dL (6.6-8.7)
[2024-12-01 17:13] LABS: Lactic Sepsis W/Reflex 1.2 mmol/L (0.5-2.2)
[2024-12-01 17:14] LABS: Potassium 2.5 mmol/L (3.5-5.1)
--- NOTE | 2024-12-01 17:41 | CTR_ITS ---
PROCEDURE INFORMATION: Exam: CT Right Lower Extremity, Foot Exam date and time: 12/01/2024 6:26 PM Age: 74 years old Clinical indication: Pain; Foot; Right; Prior surgery; Surgery date: 6+ months; Surgery type: Toe removal; Additional info: Pain sweliing erytehma TECHNIQUE: Imaging protocol: CT of the right lower extremity without contrast was performed. Exam focused on the foot. Radiation optimization: All CT scans at this facility use at least one of these dose optimization techniques: automated exposure control; mA and/or kV adjustment per patient size (includes targeted exams where dose is matched to clinical indication); or iterative reconstruction. COMPARISON: CR XR foot RT min 3V* [id number] 12/01/2024 4:23 PM RADIATION DOSE METRICS: Total DLP (mGy-cm): 172.13 FINDINGS: Bones/joints: Arthrodesis hardware in the dorsum of the navicular to 2nd metatarsal base again noted without evidence of failure or loosening. Prior healed fracture deformity of the 2nd metatarsal base. Partial fusion of the 2nd and 3rd TMT joints . Advanced TMT arthropathy including irregularity, subcortical cystic change and spurring . Mild arthrosis of the talonavicular joint and subtalar facets. Patient is status post disarticulation of the 2nd MTP joint and amputation of the 1st ray. Moderate plantar calcaneal spur. Osseous erosion of the tip of the 4th distal phalanx (series 12, image 51) overlying wound appears to be present Soft tissues: Mild soft swelling of the dorsum of the foot and around the ankle. CT/CT foot RT wo con* [id number] IMPRESSION: 1. 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 2. Other chronic and postsurgical findings detailed above
--- NOTE | 2024-12-01 17:41 | P.HP_ITS ---
Providers/Chief Complaint 2 Primary Care Provider: PAT Herbert Chief Complaint: infected right foot History of Present Illness Ben Mendoza is a 74 year old male with a past medical history of right foot infection, peripheral vascular disease, hypertension, smoker, COPD, CKD , history of left upper lobe lobectomy, restless leg syndrome, history of amputation of right second toe recent hospitalization for respiratory failure streptococcal pneumonia, RSV pneumonia, sepsis, hyperbilirubinemia who presents [facility] who presents [facility] due to increased swelling of the right foot, has a complaint of right lower extremity pain, chills, fatigue, malaise, falls no chest pain Or shortness of breath, no cough, no dysuria, hematuria Review of Systems 2 Const: Reports: chills, body aches, fatigue and malaise; Denies: fever(s) Card: Denies: chest pain Resp: Denies: dyspnea GI: Denies: abdominal pain : Denies: flank pain Musc: Denies: back pain Medications/Allergies Home Medications Medication Instructions Recorded Confirmed Last Taken Type buprenorphine 8 mg-naloxone 2 mg 2 film buccal DAILY 10/09/24 12/01/24 10/30/24 History sublingual film bupropion HCl 300 mg 24 hr tablet, 300 mg PO QAM 10/09/24 12/01/24 10/30/24 History extended release dapagliflozin propanediol 10 mg 10 mg PO QAM 10/09/24 12/01/24 10/30/24 History tablet (Farxiga) desvenlafaxine succinate 100 mg 100 mg PO DAILY 10/09/24 12/01/24 10/30/24 History tablet,extended release 24 hr fluticasone propionate 50 2 spray intranasal DAILY 10/09/24 12/01/24 10/30/24 History mcg/actuation nasal spray,suspension memantine 10 mg tablet 10 mg PO BID 10/09/24 12/01/24 10/30/24 History ondansetron 4 mg disintegrating 4 mg PO Q8H 10/09/24 12/01/24 10/30/24 History tablet pramipexole 0.5 mg tablet 0.5 mg PO BID 10/09/24 12/01/24 10/30/24 History pregabalin 150 mg capsule 150 mg PO Q8H PRN nerve pain 10/09/24 12/01/24 10/30/24 History tamsulosin 0.4 mg capsule 0.4 mg PO DAILY 10/09/24 12/01/24 10/30/24 History aspirin 81 mg tablet,delayed 81 mg PO DAILY #30 tabs 10/12/24 12/01/24 10/30/24 Rx release chlorthalidone 25 mg tablet 12.5 mg (1/2 x 25 mg) PO DAILY #30 10/12/24 12/01/24 10/30/24 Rx tabs albuterol sulfate 90 mcg/actuation 2 puff inhalation Q6H PRN 12/01/24 12/01/24 Unknown History aerosol inhaler Shortness Of Breath amlodipine 2.5 mg tablet 2.5 mg PO DAILY 12/01/24 12/01/24 Unknown History buspirone 10 mg tablet 10 mg PO BID 12/01/24 12/01/24 Unknown History furosemide 40 mg tablet 40 mg PO DAILY 12/01/24 12/01/24 Unknown History ipratropium 20 mcg-albuterol 100 1 puff inhalation DAILY 12/01/24 12/01/24 Unknown History mcg/actuation mist for inhalation (Combivent Respimat) montelukast 10 mg tablet 10 mg PO DAILY 12/01/24 12/01/24 Unknown History omeprazole 20 mg capsule,delayed 20 mg PO DAILY 12/01/24 12/01/24 Unknown History release roflumilast 500 mcg tablet 500 mcg PO DAILY 12/01/24 12/01/24 Unknown History umeclidinium 62.5 mcg-vilanterol 1 inh inhalation BID 12/01/24 12/01/24 Unknown History 25 mcg/actuation powdr for inhalation (Anoro Ellipta) Allergies Allergy/AdvReac Type Severity Reaction Status Date / Time No Known Allergies Allergy Verified 10/09/24 11:55 PFSH Acute 2 PFSH: Medical History Peripheral arterial disease CKD (chronic kidney disease), stage III Heart failure with preserved ejection fraction MRSA (methicillin resistant staph aureus) culture positive Lung cancer myelomeningocele History of tibial fracture History of fracture of clavicle Pressure ulcer BPH (benign prostatic hyperplasia) COPD (chronic obstructive pulmonary disease) Restless leg syndrome HTN (hypertension) Surgical History 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 S/P TURP History of lobectomy of lung History of fusion of cervical spine Social History Smoking and tobacco/nicotine status: current every day tobacco/nicotine user Alcohol intake: never Substance/Drug Use: current Substance/Drug use frequency: Special occassions/opportunity only Vitals/I&O/Wt Last Vital Signs Temp 99.2 F 12/01/24 16:16 Pulse 85 12/01/24 16:16 Resp 17 12/01/24 16:16 BP 132/63 12/01/24 16:16 Pulse Ox 94 12/01/24 16:16 O2 Del Method Room Air 12/01/24 16:16 Weight last 48 hrs Weight 99.79 kg Physical Exam 2 Const: COMMON NORMALS: no acute distress and patient oriented x3 Eye: COMMON NORMALS: Equal, round and reactive pupils present and EOMs intact bilaterally Resp: COMMON NORMALS: normal respiratory effort, No retractions, No use of accessory muscles and clear to auscultation bilaterally AUSCULTATION: clear to auscultation bilaterally Cardio: COMMON NORMALS: regular rate, regular rhythm, S1 normal heart sound present and S2 normal heart sound present RATE: regular rate RHYTHM: r egular rhythm HEART SOUNDS: S1 normal heart sound present and S2 normal heart sound present GI: COMMON NORMALS: Normal to inspection, nondistended, normoactive bowel sounds present, Soft to palpation and non-tender Extremity: COMMON NORMALS: no pedal edema Neuro: COMMON NORMALS: patient oriented x3, CN's II-XII intact bilaterally, moves all extremities and no focal motor deficits Psych: COMMON NORMALS: mental status grossly normal Sepsis: Is patient septic: Yes Focused sepsis exam performed: Yes F ocused sepsis exam: DP PT pulses bilateral extremities palpable, although diminished, cap refill less than 2 seconds no mottling Date exam was performed: 12/01/24 Time exam was performed: 17:45 Data 12/01/24 16:48 12/01/24 16:48 A&P Assessment and plan (1) HTN (hypertension): (2) Peripheral arterial disease: (3) CKD (chronic kidney disease), stage III: (4) Hypokalemia: (5) Cellulitis of right foot: (6) Sepsis: Plan Right foot cellulitis, with sepsis -Has a history of smoking -History of peripheral vascular disease CONCLUSIONS 1. Slightly diminished resting RILEY of 0.9 bilaterally, suggesting mild peripheral artery disease 2. Mild to moderate diffuse plaque in the femoral and popliteal arteries bilaterally 3. 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 midnight, podiatry consulted -Full code -Lovenox for DVT prophylaxis MECHE on CKD, IV fluids Sepsis secondary to right foot cellulitis sepsis features met given leukocytosis elevated CRP, source of infection Hypokalemia has received 80 mill colons of potassium in the emergency room Currently on Suboxone, resume History of left upper lobe lobectomy Recent hospitalization for RSV pneumonia, streptococcal pneumonia, transfer to [facility] in [place] -Will have to obtain records Attestations 2 Medical Necessity Statement*: Patient requires hospitalization for right foot cellulitis, sepsis, inpatient, greater than 2 midnights Diagnoses HTN (hypertension) I10 Peripheral arterial disease I73.9 CKD (chronic kidney disease), stage III N18.30 Hypokalemia E87.6 Cellulitis of right foot L03.115 Sepsis A41.9
--- NOTE | 2024-12-01 17:41 | USCV_ITS ---
Ben Mendoza Age: 74 Gender: M : 1950 Exam Date: 12/01/2024 21:41 Ordering Phys: Finn Cottrell MD Technologist: MARICRZU [place] [facility] [place]: swelling, SOB, HTN, COPD, CKD, s/p left upper lobectomy, respiratory failure, recent pneumonia, long-term smoker continues smoking. HISTORY: swelling, SOB, HTN, COPD, CKD, s/p left upper lobectomy, respiratory failure, recent pneumonia, long-term smoker continues smoking. PROCEDURES: Venous duplex imaging was performed in bilateral lower extremities. The following venous structures were evaluated: common femoral vein, profunda vein, proximal portion of the greater saphenous vein, superficial femoral vein, and the popliteal vein. In addition, the posterior tibial veins were evaluated.. FINDINGS: Normal 2-D Doppler and augmentation and compressibility throughout the lower extremity venous structures. Additional imaging through the proximal calf veins also reveals no thrombus. Limited evaluation of the greater saphenous vein is patent with no thrombus. CONCLUSIONS No DVT bilateral lower extremities. Dr. Radha Garcia DO (Electronically Signed) Final Date: 02 December 2024 07:33 S
[2024-12-01] MEDS: potassium chloride ER 20 mEq Tablet 80 MEQ PO (17:43)
[2024-12-01] MEDS: piperacillin-tazobactam 3.375 GM in sodium chloride 0.9% (plus) 50 ML IV (17:51)
--- NOTE | 2024-12-01 17:54 | XR_ITS ---
WS: [id number] Exam: XR chest 1V portable [id number] Date/Time of Exam: 12/01/2024 6:12 PM Reason For Exam: hx of pna Comparison 10/31/2024. 6 cm masslike density seen at the LEFT hilum. This may represent residual pneumonia, atelectasis or r ecurrent mass. Signs of partial LEFT pneumonectomy. No pneumothorax or pleural effusion. Heart size i s normal. The mediastinum is normal in contour. Hardware noted in the lower C-spine and the RIGHT cla vicle. XR/XR chest 1V portable [id number] IMPRESSION: 1. 6 cm ovoid soft tissue mass at the LEFT hilum. This may represent residual p neumonia and/or atelectasis. Recurrent mass not excluded. Status post partial L EFT pneumonectomy. 2. No other significant finding.
--- NOTE | 2024-12-01 18:06 | USCV_ITS ---
Ben Mendoza Age: 74 Gender: M : 1950 Exam Date: 12/01/2024 22:04 Ordering Phys: Finn Cottrell MD Technologist: MARICRUZ Exam Location: [facility] [place] Indication: SOB, history of PVD, HTN, COPD, CKD, respiratory failure, recent pneumonia, long-term smoker continues smoking. BP: 127 / 68 HR: 77 Rhythm: Sinus Technical Quality: Adequate MEASUREMENTS (Male / Female) Normal Values 2D ECHO LV Diastolic Diameter PLAX 3.2 cm 4.2 - 5.9 / 3.9 - 5.3 cm IVS Diastolic Thickness 2.6 cm 0.6 - 1.0 / 0.6 - 0.9 cm IVS Systolic Thickness 2.0 cm LVPW Diastolic Thickness 1.6 cm 0.6 - 1.0 / 0.6 - 0.9 cm LVPW Systolic Thickness 1.6 cm LVOT Diameter 2.1 cm LV Ejection Fraction 2D Teich 60.1 % LV Ejection Fraction MOD 4C 59.7 % LV Ejection Fraction MOD 2C 42.9 % LV Ejection Fraction 2C AL 40.7 % LA Diameter 3.7 cm Aorta at Sinotubular Diameter 3.7 cm IVC Diameter 1.2 cm M-MODE LA Ao Ratio MM 1.1 AV Cusp Separation MM 1.8 cm DOPPLER AV Peak Velocity 172.0 cm/s LVOT Peak Velocity 153.0 cm/s AV Area Cont Eq vti 3.2 cm squared AV Area Cont Eq pk 3.0 cm squared MV Peak Velocity 115.0 cm/s MV Area PHT 3.2 cm squared Mitral E to A Ratio 0.6 TV Peak Velocity 236.5 cm/s TR Peak Velocity 264.0 cm/s TR Peak Gradient 27.9 mmHg TV Peak E Velocity 44.0 cm/s PV Peak Velocity 104.0 cm/s FINDINGS Left Ventricle Left ventricle is normal in size. LV systolic function is normal with EF of 50-55%. No regional wall motion abnormalities. Grade 1 diastolic dysfunction. Right Ventricle Normal in size and function Right Atrium Normal in size Left Atrium Normal in size Mitral Valve Mild mitral regurgitation Aortic Valve Structurally normal. No significant stenosis or regurgitation Tricuspid Valve Mild tricuspid regurgitation. Pulmonary artery sustolic pressure is normal Pulmonic Valve Not well visualized Pericardium Normal Aorta Normal in size IVC Appears to be normal CONCLUSIONS LV systolic function is normal with EF of 50-55% Grade 1 diastolic dysfunction Mild mitral regurgitation Mild tricuspid regurgitation. Ricardo Guerin MD (Electronically Signed) Final Date: 02 December 2024 22:45 S
[2024-12-01 18:07] LABS: Troponin(5th) Baseline 47 ng/L (0-15)
[2024-12-01 18:20] LABS: Magnesium 2.4 mg/dL (1.7-2.3)
--- NOTE | 2024-12-01 18:21 | ECG_ITS ---
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 Measurements Intervals [place] Rate: 89 P: 88 [place]: 167 QRS: 27 QRSD: 118 T: 67 QT: 363 QTc: 443 Interpretive Statements SINUS RHYTHM LOW QRS VOLTAGE IN PRECORDIAL LEADS [QRS DEFLECTION < 1.0 mV IN CHEST LEADS] INFERIOR MYOCARDIAL INFARCTION , PROBABLY OLD [40+ ms Q WAVE AND/OR ST/T ABNORMALITY IN II/aVF] Compared to ECG 10/31/2024 08:23:43 Sinus tachycardia no longer present Myocardial infarct finding still present Electronically Signed On 12-03-2024 13:21:39 [employer] by Ricardo Guerin M.D. [id number]
[2024-12-01] MEDS: VANCOMYCIN ADD-Vantage 1,000 MG in 0.9% NaCl ADD-Vantage 250 ML 250 MG IV (18:31)
[2024-12-01 18:35] LABS: Procalcitonin 0.58 ng/mL (0-0.5)
[2024-12-01 18:45] LABS: Creatine Phosphokinase 31 U/L (39-308); D Dimer 1.95 ug/mLFEU (0-0.59)
--- NOTE | 2024-12-01 18:47 | PC.NURSE ---
Received report from Mahi WHATLEY at shift change.
[2024-12-01 19:16] LABS: Glucose Point of Care 142 mg/dL (70-110)
[2024-12-01] MEDS: morphine 4 mg/mL SDV 1 mL IVP (19:17)
[2024-12-01 19:27] LABS: Troponin 5 2HR 44.03 ng/L (0-15)
[2024-12-01 19:33] LABS: Troponin 5 2HR Delta -2.97 ABS# (0-10)
--- NOTE | 2024-12-01 19:52 | PC.NURSE ---
Report called to Elaine WHATLEY on MS. All questions and concerns were addressed at time of report.
--- NOTE | 2024-12-01 20:22 | PHA.VACGOAL ---
Vancomycin Goal - Goal Vancomycin Goal:: 15-20 mg/L Vancomycin Indication:: SSTI (WITH SEPSIS) - Therapy Current therapy:: Pip/Tazo Day of therpy:: Day []of [] . Actual body weight (kg): 220 lb - Data Labs: WBC 13.71 10^3/uL (3.29-11.43) H 12/01/24 16:48 RBC 4.28 10^6/uL (3.85-5.65) 12/01/24 16:48 Hgb 11.70 g/dL (11.27-16.99) 12/01/24 16:48 Hct 38.9 % (37-53) 12/01/24 16:48 MCV 90.9 fl (82-101) 12/01/24 16:48 MCH 27.3 pg (27-33) 12/01/24 16:48 MCHC 30.1 g/dL (30-55) 12/01/24 16:48 RDW 14.9 % (12.1-15.1) 12/01/24 16:48 Sodium 139 mmol/L (136-145) 12/01/24 16:48 Potassium 2.5 mmol/L (3.5-5.1) L* 12/01/24 16:48 Chloride 101 mmol/L (98-107) 12/01/24 16:48 Carbon Dioxide 24 mmol/L (22-29) 12/01/24 16:48 Anion Gap 16.5 (5-19) 12/01/24 16:48 BUN 30 mg/dL (8-23) H 12/01/24 16:48 Creatinine 1.5 mg/dL (0.7-1.2) H 12/01/24 16:48 GFR Calculation Not Reportable 12/01/24 16:48 Last dialysis session:: N/A Treatment plan:: new consult Regimen:: 1000 MG LOADING DOSE GIVEN IN ER MAINTENANCE DOSE OF 1000 MG Q12H PER DOSING PROTOCOL Follow up:: WILL CONTINUE TO MONITOR AND FOLLOW UP DAILY
[2024-12-01 21:10] LABS: HIV 1 & 2 Antibody Non-Reactive (Non-Reactiv); HIV 1 & 2 Antigen Non-Reactive (Non-Reactiv)
[2024-12-01 21:18] LABS: Hepatitis A Antibody IgM Non-Reactive (Nonreactive); Hepatitis B Core IgM Non-Reactive (Nonreactive); Hepatitis B Surface Antigen Non-Reactive (Nonreactive); Hepatitis C Virus Antibody Reactive (Nonreactive)
[2024-12-01] MEDS: enoxaparin 40 mg/0.4 mL Syringe SUBCUT (21:38)
[2024-12-01] MEDS: BuSPIRONE 10 mg Tablet PO (21:39)
[2024-12-01] MEDS: pantoprazole 40 mg SDV IVP (21:39)
[2024-12-01] MEDS: sodium chloride 0.9% 1,000 ML 50 ML IV (21:46)
[2024-12-01 23:20] LABS: Troponin 5 6HR 46.74 ng/L (0-15)
[2024-12-01] MEDS: morphine 4 mg/mL SDV 1 mL 2 MG IVP (23:36)
[2024-12-01 23:42] LABS: Troponin 5 6HR Delta -0.26 ng/L (0-12)
--- NOTE | 2024-12-01 23:58 | ECG_ITS ---
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 Measurements Intervals [place] Rate: 80 P: 70 [place]: 167 QRS: -15 QRSD: 109 T: 29 QT: 364 QTc: 420 Interpretive Statements SINUS RHYTHM LOW QRS VOLTAGE IN PRECORDIAL LEADS [QRS DEFLECTION < 1.0 mV IN CHEST LEADS] MODERATE ST DEPRESSION [0.05+ mV ST DEPRESSION] Compared to ECG 12/01/2024 18:21:44 ST (T wave) deviation now present Myocardial infarct finding no longer present Electronically Signed On 12-03-2024 13:34:33 [employer]ACTICE [employer]AD by Ricardo Guerin M.D. [id number]
[2024-12-02] VITALS (88 sets, daily range): BP systolic 84–125; BP diastolic 42–61; PULSE 52–102; RESP 12–25; TEMP 36.3–37.8; O2SAT 89–100
[2024-12-02 01:45] LABS: Bilirubin Urine Negative (Negative); Blood Urine Negative (Negative); Glucose Urine UA 2+ (Normal); Ketones Urine Negative (Negative); Leukocyte Esterase Urine Negative (Negative); Nitrate Urine Negative (Negative); Protein Urine 2+ (Negative); Specific Gravity, Urine 1.023 (1.005-1.030); Urine Appearance Clear (CLEAR); Urine Color Yellow (Yellow); pH Urine 5.5 (5-7)
[2024-12-02 01:50] LABS: Add Urine Microscopic? YES; Bacteria Urine None Seen /hpf; Hyaline Casts Urine 0.81 /lpf; Squamous Epithelial Cell Urine 0-5 /hpf (0-5); WBC Urine 0-5 /hpf (0-5)
[2024-12-02] MEDS: piperacillin-tazobactam 3.375 GM in sodium chloride 0.9% (plus) 50 ML IV ×2 (02:59→17:39)
[2024-12-02] MEDS: morphine 4 mg/mL SDV 1 mL 2 MG IVP ×3 (03:57→22:09)
[2024-12-02 04:00] LABS: Adenovirus Not Detected (NOT DETECT); Chlamydia Pneumoniae Not Detected (NOT DETECT); Coronavirus 229E,HKU1,NL63,OC4 Not Detected (NOT DETECT); Human Metapneumovirus Not Detected (NOT DETECT); Human Rhinovirus/Enterovirus Not Detected (NOT DETECT); Influenza A Not Detected (NOT DETECT); Influenza A H1 Not Detected (NOT DETECT); Influenza A H1-2009 Not Detected (NOT DETECT); Influenza A H3 Not Detected (NOT DETECT); Influenza B Not Detected (NOT DETECT); Mycoplasma Pneumoniae Not Detected (NOT DETECT); Parainfluenza Virus Type 1 Not Detected (NOT DETECT); Parainfluenza Virus Type 2 Not Detected (NOT DETECT); Parainfluenza Virus Type 3 Not Detected (NOT DETECT); Parainfluenza Virus Type 4 Not Detected (NOT DETECT); Respiratory Syncytial Virus A Not Detected (NOT DETECT); Respiratory Syncytial Virus B Not Detected (NOT DETECT); SARS-COV-2 Not Detected (NOT DETECT)
[2024-12-02 06:04] LABS: Basophils % 0.2 %; Eosinophils % 0.1 %; Hematocrit 38.5 % (37-53); Lymphocytes % 7.1 %; Mean Corpuscular HGB Conc 30.1 g/dL (30-55); Mean Corpuscular Hemoglobin 27.2 pg (27-33); Mean Corpuscular Volume 90.4 fl (82-101); Mean Platelet Volume 9.8 fL (7.4-10.4); Monocytes # 0.6 10^3/uL (0.2-0.9); Monocytes % 4.7 %; Neutrophils # 11.98 10^3/uL (1.8-7.7); Neutrophils % 87.5 %; Nucleated Red Blood Cells % 0 %; Platelet Count 168 10^3/cmm (157-399); Red Blood Count 4.26 10^6/uL (3.85-5.65); Red Cell Distribution Width 15.8 % (12.1-15.1); White Blood Count 13.69 10^3/uL (3.29-11.43)
[2024-12-02 06:24] LABS: C Reactive Protein 248.2 mg/L (0.0-4.9)
[2024-12-02 06:35] LABS: NT Pro B Type Natriuretic Pept 1895 pg/mL (0-125); Procalcitonin 0.54 ng/mL (0-0.5)
[2024-12-02] MEDS: buPROPion XL (24 HR) 300 mg Tablet PO (06:36)
[2024-12-02] MEDS: VANCOMYCIN ADD-Vantage 1,000 MG in 0.9% NaCl ADD-Vantage 250 ML 250 MG IV ×2 (06:37→17:40)
[2024-12-02 06:47] LABS: Anion Gap 25.3 (5-19); Blood Urea Nitrogen 27 mg/dL (8-23); Calcium 8.3 mg/dL (8.5-10.5); Carbon Dioxide 24 mmol/L (22-29); Chloride 97 mmol/L (98-107); Creatinine Clr Calc Pharmacy 51.8594; Osmolality Calculated 300 mOsm/kg (285-295); Sodium 144 mmol/L (136-145)
[2024-12-02 06:52] LABS: Glucose 39 mg/dL (65-115); Potassium 2.3 mmol/L (3.5-5.1)
[2024-12-02 06:57] LABS: Glucose Point of Care 97 mg/dL (70-110)
[2024-12-02] MEDS: lidocaine 1% 5 ML in potassium chloride premix 100 ML 52.5 ML IV (07:44)
[2024-12-02] MEDS: potassium chloride ER 20 mEq Tablet 60 MEQ PO (07:45)
--- NOTE | 2024-12-02 07:46 | PC.NURSE ---
[facility] crit serum glucose reported at 39 and potassium 2.3 by lab t [address]. spoke with dr gomez at 0710 orders for po 60meq klor con and 20meq k-rider. poc blood glucose was 97 and reported to the doctor, told to recheck sugar in an hour
[2024-12-02] MEDS: dextrose 5%-ns + KCl 40 40 MEQ/1,000 ML BAG 125 MEQ IV (09:01)
--- NOTE | 2024-12-02 09:50 | PC.SOCIAL ---
IMM Updated Updated pt on IMM. No questions voiced. Provided pt a copy. Initialed, dated, & timed a copy & placed in chart.
--- NOTE | 2024-12-02 10:14 | PC.SLP ---
RELAY RECORD CLERK evaluation attempted but patient not in room; preparing for surgery per nursing.
--- NOTE | 2024-12-02 10:20 | PC.NURSE ---
Surgery Patient was taken to surgery at 0959.
[2024-12-02] MEDS: sodium chloride 0.9% 1,000 ML 30 ML IV (10:36)
[2024-12-02 10:47] LABS: Anion Gap 17.7 (5-19); Blood Urea Nitrogen 24 mg/dL (8-23); Calcium 8.1 mg/dL (8.5-10.5); Carbon Dioxide 22 mmol/L (22-29); Chloride 105 mmol/L (98-107); Creatinine Clr Calc Pharmacy 59.2679; Glucose 103 mg/dL (65-115); Osmolality Calculated 296 mOsm/kg (285-295); Potassium 3.7 mmol/L (3.5-5.1); Sodium 141 mmol/L (136-145)
--- NOTE | 2024-12-02 10:51 | ANES.PREANE2 ---
Pre-Anesthetic Assessment Height/Weight: Height 1.85 m Weight 99.79 kg Temp Pulse Resp BP Pulse Ox O2 Del Method O2 Flow Rate 99.2 F 69 16 96/45 94 Nasal Cannula 2 12/02/24 10:00 12/02/24 10:00 12/02/24 10:00 12/02/24 10:00 12/02/24 10:00 12/02/24 10:00 12/02/24 10:00 Operation Date: 12/02/24 13:10 Proposed Procedures p Amputation Toe/s 3RD TOE(Right) - José Luis Marie DPM Familial anesthetic complications: None Was Beta Benjy taken within 24 hours: N/A Was Clonidine taken within 24 hours: N/A Last intake: Intake Last Liquid Date 12/01/24 Last Liquid Time 00:00 Last Solid Date 12/01/24 Last Solid Time 23:30 Social Tobacco and No alcohol Exam alert, oriented x 3, clear to auscultation bilaterally and regular rate & rhythm Airway Mallampati: Class III Dentition: other (none) Comments: Comments: Full amaya CV/HEM Congestive Heart Failure and Hypertension Chronic Renal Insufficiency Anesthetic Plan ASA status: 4 Anesthesia: MAC Risk of > 500 ml blood loss (7ml/kg in children): No Medications/Allergies Home Medications Medication Instructions Recorded Confirmed Last Taken Type buprenorphine 8 mg-naloxone 2 mg 2 film buccal DAILY 10/09/24 12/01/24 10/30/24 History sublingual film bupropion HCl 300 mg 24 hr tablet, 300 mg PO QAM 10/09/24 12/01/24 10/30/24 History extended release dapagliflozin propanediol 10 mg 10 mg PO QAM 10/09/24 12/01/24 10/30/24 History tablet (Farxiga) desvenlafaxine succinate 100 mg 100 mg PO DAILY 10/09/24 12/01/24 10/30/24 History tablet,extended release 24 hr fluticasone propionate 50 2 spray intranasal DAILY 10/09/24 12/01/24 10/30/24 History mcg/actuation nasal spray,suspension memantine 10 mg tablet 10 mg PO BID 10/09/24 12/01/24 10/30/24 History ondansetron 4 mg disintegrating 4 mg PO Q8H 10/09/24 12/01/24 10/30/24 History tablet pramipexole 0.5 mg tablet 0.5 mg PO BID 10/09/24 12/01/24 10/30/24 History pregabalin 150 mg capsule 150 mg PO Q8H PRN nerve pain 10/09/24 12/01/24 10/30/24 History tamsulosin 0.4 mg capsule 0.4 mg PO DAILY 10/09/24 12/01/24 10/30/24 History aspirin 81 mg tablet,delayed 81 mg PO DAILY #30 tabs 10/12/24 12/01/24 10/30/24 Rx release chlorthalidone 25 mg tablet 12.5 mg (1/2 x 25 mg) PO DAILY #30 10/12/24 12/01/24 10/30/24 Rx tabs albuterol sulfate 90 mcg/actuation 2 puff inhalation Q6H PRN 12/01/24 12/01/24 Unknown History aerosol inhaler Shortness Of Breath amlodipine 2.5 mg tablet 2.5 mg PO DAILY 12/01/24 12/01/24 Unknown History buspirone 10 mg tablet 10 mg PO BID 12/01/24 12/01/24 Unknown History furosemide 40 mg tablet 40 mg PO DAILY 12/01/24 12/01/24 Unknown History ipratropium 20 mcg-albuterol 100 1 puff inhalation DAILY 12/01/24 12/01/24 Unknown History mcg/actuation mist for inhalation (Combivent Respimat) montelukast 10 mg tablet 10 mg PO DAILY 12/01/24 12/01/24 Unknown History omeprazole 20 mg capsule,delayed 20 mg PO DAILY 12/01/24 12/01/24 Unknown History release roflumilast 500 mcg tablet 500 mcg PO DAILY 12/01/24 12/01/24 Unknown History umeclidinium 62.5 mcg-vilanterol 1 inh inhalation BID 12/01/24 12/01/24 Unknown History 25 mcg/actuation powdr for inhalation (Anoro Ellipta) Allergies Allergy/AdvReac Type Severity Reaction Status Date / Time No Known Allergies Allergy Verified 10/09/24 11:55 Current Medications Generic Name Dose Route Start Last Admin Trade Name Freq PRN Reason Stop Dose Admin Bupropion HCl 300 mg 12/02/24 06:00 12/02/24 06:36 Bupropion Xl (24 Hr) 300 Mg Tablet PO 300 mg QAM IVAN Administration Buspirone HCl 10 mg 12/01/24 20:10 12/01/24 21:39 Buspirone 10 Mg Tablet PO 10 mg BID IVAN Administration Enoxaparin Sodium 40 mg 12/01/24 20:10 12/01/24 21:38 Enoxaparin 40 Mg/0.4 Ml Syringe SUBCUT 40 mg Q24H IVAN Administration Piperacillin Sod/Tazobactam 50 mls @ 12.5 mls/hr 12/02/24 02:00 12/02/24 07:46 Sod 3.375 gm/ Sodium Chloride IV Infused Q8H IVAN Infusion Vancomycin HCl 1,000 mg/ 250 mls @ 250 mls/hr 12/02/24 06:30 12/02/24 09:02 Sodium Chloride IV Infused Q12H IVAN Infusion Potassium Chloride/Dextrose/Sod Cl 40 meq in 1,000 mls @ 125 mls/hr 12/02/24 08:30 12/02/24 09:01 Dextrose 5%-Ns + Kcl 40 IV 125 mls/hr .Q8H IVAN Administration Sodium Chloride 1,000 mls @ 30 mls/hr 12/02/24 10:30 12/02/24 10:36 Sodium Chloride 0.9% IV 12/03/24 10:29 30 mls/hr .Q24H IVAN Administration Morphine Sulfate 2 mg 12/01/24 20:10 12/02/24 03:57 Morphine 4 Mg/Ml Sdv 1 Ml IVP 2 mg Q4H PRN Administration SEVERE PAIN Pantoprazole Sodium 40 mg 12/01/24 20:10 12/01/24 21:39 Pantoprazole 40 Mg Sdv IVP 40 mg Q24H IVAN Administration PFSH Anesthesia Medical History Peripheral arterial disease CKD (chronic kidney disease), stage III Heart failure with preserved ejection fraction MRSA (methicillin resistant staph aureus) culture positive Lung cancer myelomeningocele History of tibial fracture History of fracture of clavicle Pressure ulcer BPH (benign prostatic hyperplasia) COPD (chronic obstructive pulmonary disease) Restless leg syndrome HTN (hypertension) Surgical History 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 S/P TURP History of lobectomy of lung History of fusion of cervical spine Social History Smoking and tobacco/nicotine status: current every day tobacco/nicotine user Alcohol intake: never Substance/Drug Use: current Substance/Drug use frequency: Special occassions/opportunity only Data Anesthesia 12/02/24 05:05 12/02/24 10:22 Short CBC 12/01/24 12/02/24 Range/Units 16:48 05:05 WBC 13.71 H 13.69 H (3.29-11.43) 10^3/uL Hgb 11.70 11.60 (11.27-16.99) g/dL Hct 38.9 38.5 (37-53) % MCV 90.9 90.4 (82-101) fl Plt Count 161 168 (157-399) 10^3/cmm Neut % (Auto) 89.7 87.5 % Neut # (Auto) 12.30 H 11.98 H (1.8-7.7) 10^3/uL BMP 12/01/24 12/02/24 12/02/24 16:48 05:05 10:22 Sodium 139 144 141 Potassium 2.5 L* 2.3 L* 3.7 Chloride 101 97 L 105 Carbon Dioxide 24 24 22 BUN 30 H 27 H 24 H Creatinine 1.5 H 1.6 H 1.4 H Glucose 114 39 L* 103 Calcium 8.8 8.3 L 8.1 L Cardiac Enzymes 12/01/24 12/01/24 12/01/24 Range/Units 16:48 18:10 18:56 Creatine Kinase 31 L (39-308) U/L Troponin T Baseline 47 H (0-15) ng/L Troponin T 120 Minute 44.03 H (0-15) ng/L Delta Troponin T -2.97 L (0-10) ABS# Troponin T Hi Sens 6Hr (0-15) ng/L Troponin T Hi Sens 6Hr Delta (0-12) ng/L NT-Pro-B Natriuret Pep (0-125) pg/mL 12/01/24 12/02/24 Range/Units 22:48 05:05 Creatine Kinase (39-308) U/L Troponin T Baseline (0-15) ng/L Troponin T 120 Minute (0-15) ng/L Delta Troponin T (0-10) ABS# Troponin T Hi Sens 6Hr 46.74 H (0-15) ng/L Troponin T Hi Sens 6Hr Delta -0.26 L (0-12) ng/L NT-Pro-B Natriuret Pep 1895 H (0-125) pg/mL Liver Function 12/01/24 Range/Units 16:48 Total Bilirubin 1.0 (0.15-1.2) mg/dL AST 14 (0-40) U/L ALT 19 (0-41) U/L Alkaline Phosphatase 133 H (40-130) U/L Albumin 3.2 L (3.5-5.2) g/dL Urine 12/02/24 Range/Units 00:50 Urine Color Yellow (Yellow) Urine Appearance Clear (CLEAR) Urine pH 5.5 (5-7) Ur Specific [place] 1.023 (1.005-1.030) Urine Protein 2+ A (Negative) Urine Glucose (UA) 2+ H (Normal) Urine Ketones Negative (Negative) Urine Nitrate Negative (Negative) Urine Bilirubin Negative (Negative) Ur Leukocyte Esterase Negative (Negative) Urine RBC 3-5 (0-2) /hpf Urine WBC 0-5 (0-5) /hpf COVID Results 12/02/24 02:06 Coronavirus 229E (PCR) Not detected SARS-CoV-2 (PCR) Not detected Coags 12/01/24 12/01/24 12/02/24 16:48 18:10 05:05 ESR 19 H D-Dimer 1.95 H C-Reactive Protein 211.1 H 248.2 H Microbiology 12/01/24 17:41 Blood Culture - Preliminary Blood SPECIMEN COLLECTED 12/01/24 17:35 Blood Culture - Preliminary Blood SPECIMEN COLLECTED Cardiac Studies: No Data to Display
--- NOTE | 2024-12-02 11:15 | W.PM.OPSUD ---
Surgery/Procedure H&P Update DATE OF PROCEDURE: December 02, 2024 DATE H&P PERFORMED: 10/09/24 H&P UPDATE INFORMATION: I have reviewed H&P completed within last 30 days, I have examined patient prior to procedure, No changes to prior documentation and H&P is in [facility] EMR on date indicated PLANNED PROCEDURE: Operation Date: 12/02/24 13:10 Proposed Procedures p Amputation Toe/s 3RD TOE(Right) - José Luis Marie DPM
[2024-12-02] MEDS: lidocaine 2% INJ 20 mL INJECTION (11:54)
[2024-12-02] MEDS: BUPivacaine 0.5% INJ 30 mL INJECTION (11:55)
--- NOTE | 2024-12-02 12:05 | P.BOP_ITS ---
Date of Procedure: 01/15/24 Surgeon: José Luis Marie DPM Breeding Technician(s): Kisha Procedure(s) performed: Right third, fourth, fifth toe amputations. Findings of the procedure(s): Osteomyelitis right foot Estimated blood loss: 2 mL Specimen(s) removed: Right third, fourth, fifth toe sent to pathology Post-operative diagnosis: Osteomyelitis with cellulitis right foot
--- NOTE | 2024-12-02 12:06 | P.OP_ITS ---
Operative Report Date of procedure: December 02, 2024 Pre-op diagnosis: Idiopathic peripheral polyneuropathy Right third hammertoe Right fourth hammertoe Right fifth hammertoe Wound exposed bone right third toe distal phalanx L97.514 Osteomyelitis right fourth toe distal phalanx L97.514 Post-op diagnosis: Idiopathic peripheral polyneuropathy Right third hammertoe Right fourth hammertoe Right fifth hammertoe Wound exposed bone right third toe distal phalanx L97.514 Osteomyelitis right fourth toe distal phalanx L97.514 Procedure done: Right third toe amputation. CPT code 34840 Right fourth toe amputation. CPT code 88830 Right fifth toe amputation. CPT code 18048 Implants: 2-0 Vicryl, 3-0 nylon Pathology: Right third, fourth, fifth toe sent to pathology for permanent Surgeon: José Luis Marie DPM Accountant Manager: Kisha Estimated blood loss: 2 14 IV fluids: See intraoperative documentation Urine output: None Complications: No complications Brief History: Ben Mendoza is a 74 year old male with peripheral neuropathy presents to emergency department complaints of wound to the right third toe with redness streaking to the midfoot. Patient is not well, there is pet hair in the wound. He also complains of hammertoe deformities 3 4 and 5 right foot. He has a history of right great toe amputation and a history of right second toe amputation. CT scan showed osteomyelitis distal phalanx right fourth toe and clinically has a wound to the right third toe that probes to bone. He is opting for amputation of digits 3, 4, 5 for source control and not to be left with just his fifth toe after surgery. Patient denies any subjective nausea, vomiting, fever, chills, shortness of breath or chest pain. Procedure: Under mild sedation the patient was brought to the operating room and remained on the hospital bed in supine position. A timeout was performed. Anesthesia was then administered by the anesthesia service. Local anesthesia injected by myself consisting of 30 cc of one-to-one mixture 1% lidocaine and 0.5% Marcaine plain in a third, fourth and fifth ray block to the right foot. Well-padded pneumatic tourniquet applied to the right ankle. The right lower extremity was scrubbed, prepped and draped utilizing normal aseptic technique. Attention was directed to the right third, fourth and fifth toes were each individual toe was sharply incised and disarticulated with a #15 blade through the third, fourth and fifth metatarsal phalangeal joints, the right third toe fourth toe and fifth toe were passed from the operative field and sent to pathology for permanent. The incision was irrigated with copious amounts of sterile saline solution. Under traction the extensor and flexor tendons were transected at their most possible margin. All bleeders were ligated and cauterized as necessary. Following irrigation with copious amounts of stress and solution the heads of the third, fourth and fifth metatarsals were directly visualized to be viable without signs of necrosis. The deep fascia and subcutaneous tissue were reapproximated utilizing 2-0 Vicryl and skin reapproximated with 3-0 nylon followed by dressing consisting of Xeroform 4 x 4 gauze Kerlix and a well-padded multilayer lightly compressive Hammond splint with ankle joint and foot in neutral position. Tourniquet was deflated and a hyperemic response is noted to the remaining forefoot of the right foot. Patient tolerated the procedure and anesthesia well and was transferred to the PACU with vital signs stable and vascular status intact. Following a period of postoperative monitoring he will be transferred to ICU due to hypotension.
--- NOTE | 2024-12-02 12:14 | PC.NURSE ---
Blood sugar =146
[2024-12-02 12:16] LABS: Glucose Point of Care 146 mg/dL (70-110)
--- NOTE | 2024-12-02 12:21 | PC.NURSE ---
BP \low, Dr. Yee gave phenylephrine 100 mcg BP up to 121/60
--- NOTE | 2024-12-02 12:36 | PC.NURSE ---
Edvin VOGEL gave meds for BP up to 117/53
--- NOTE | 2024-12-02 13:11 | PC.NURSE ---
Addendum entered by Diana Harkins RN 12/02/24 13:12: Ronit correct spelling Original Note: Dr. Boogie came to see patient. No new orders received.
--- NOTE | 2024-12-02 13:13 | PC.NURSE ---
12:55 Patient transferred to [facility]
--- NOTE | 2024-12-02 13:59 | NUR.SHIFT ---
Lab here to draw blood.
[2024-12-02 14:16] LABS: Basophils % 0.3 %; Eosinophils # 0.1 10^3/uL (0.0-0.8); Eosinophils % 1.2 %; Hematocrit 30.9 % (37-53); Lymphocytes # 1.2 10^3/uL (0.8-4.8); Lymphocytes % 15.9 %; Mean Corpuscular HGB Conc 30.1 g/dL (30-55); Mean Corpuscular Volume 89.8 fl (82-101); Mean Platelet Volume 9.1 fL (7.4-10.4); Monocytes # 0.6 10^3/uL (0.2-0.9); Monocytes % 7.7 %; Neutrophils # 5.43 10^3/uL (1.8-7.7); Neutrophils % 74.5 %; Nucleated Red Blood Cells % 0 %; Platelet Count 130 10^3/cmm (157-399); Red Blood Count 3.44 10^6/uL (3.85-5.65); Red Cell Distribution Width 15.4 % (12.1-15.1); White Blood Count 7.29 10^3/uL (3.29-11.43)
--- NOTE | 2024-12-02 14:16 | PC.NURSE ---
Pt drinking and eating saltine crackers. no complaints. continuing to monitor BP
[2024-12-02 14:32] LABS: Alanine Aminotransferase 12 U/L (0-41); Albumin Level 2.6 g/dL (3.5-5.2); Alkaline Phosphatase 101 U/L (40-130); Anion Gap 15.7 (5-19); Aspartate Amino Transferase 8 U/L (0-40); Blood Urea Nitrogen 23 mg/dL (8-23); Calcium 7.8 mg/dL (8.5-10.5); Carbon Dioxide 22 mmol/L (22-29); Chloride 108 mmol/L (98-107); Creatinine Clr Calc Pharmacy 59.2679; Globulin 3.2 g/dL (1.3-4.6); Glucose 102 mg/dL (65-115); Lactic Sepsis W/Reflex 1.4 mmol/L (0.5-2.2); Osmolality Calculated 298 mOsm/kg (285-295); Potassium 3.7 mmol/L (3.5-5.1); Sodium 142 mmol/L (136-145); Total Bilirubin 0.9 mg/dL (0.15-1.2); Total Protein 5.8 g/dL (6.6-8.7)
--- NOTE | 2024-12-02 14:48 | P.PN_ITS ---
Subjective 2 Subjective: - Patient was seen this morning -Denies any chest pain, palpitations, ch ills, dizziness, vomiting -N.p.o. for surgical invention, does hav e hypokalemia and is receiving IV potassium will receive p.o. potassium -Patient was seen postoperatively, jaiden rns for hypotension he is alert oriented x 3, following commands no chest pain, no palpitations, no nausea, vomiting, abdominal pain maps around 60-65, he is relatively asymptomatic, he tells me that this happens when he has anesthesia, he developed low blood pressure that is happened in the past, -Repeat CBC, CMP, lactic acid Vitals/I&O/Wt Last Vital Signs Temp 97.4 F L 12/02/24 14:15 Pulse 58 L 12/02/24 14:40 Resp 20 H 12/02/24 14:40 BP 93/42 12/02/24 14:40 Pulse Ox 93 12/02/24 14:40 O2 Del Method Room Air 12/02/24 14:40 O2 Flow Rate 3 12/02/24 14:05 12/01/24 12/02/24 12/02/24 22:59 06:59 14:59 Intake Total 550 / 550 0 / 550 860 / 860 Output Total 500 / 500 2 / 2 Balance 50 / 50 0 / 50 858 / 858 Weight last 48 hrs Weight 99.79 kg Weight 99.79 kg Weight 99.79 kg Physical Exam 2 Const: COMMON NORMALS: no acute distress and patient oriented x3 Resp: COMMON NORMALS: normal respiratory effort, No retractions, No use of accessory muscles and clear to auscultation bilaterally AUSCULTATION: clear to auscultation bilaterally Cardio: COMMON NORMALS: regular rate, regular rhythm, S1 normal heart sound present and S2 normal heart sound present RATE: regular rate RHYTHM: r egular rhythm HEART SOUNDS: S1 normal heart sound present and S2 normal heart sound present GI: COMMON NORMALS: Normal to inspection, nondistended, normoactive bowel sounds present and non-tender Extremity: COMMON NORMALS: no pedal edema Neuro: COMMON NORMALS: patient oriented x3 Psych: COMMON NORMALS: mental status grossly normal Data 12/02/24 14:08 12/02/24 14:08 Micro: Microbiology 12/01/24 17:41 Blood Culture - Preliminary Blood SPECIMEN COLLECTED 12/01/24 17:35 Blood Culture - Preliminary Blood SPECIMEN COLLECTED A&P Assessment and plan (1) HTN (hypertension): (2) Peripheral arterial disease: (3) CKD (chronic kidney disease), stage III: (4) Hypokalemia: (5) Cellulitis of right foot: (6) Sepsis: (7) Postoperative hypotension: Plan Right foot cellulitis, with sepsis -Has a history of smoking -History of peripheral vascular disease CONCLUSIONS 1. Slightly diminished resting RILEY of 0.9 bilaterally, suggesting mild peripheral artery disease 2. Mild to moderate diffuse plaque in the femoral and popliteal arteries bilaterally 3. 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 2. Other chronic and postsurgical findings detailed above -Plan -As risk factor for thromboangiitis obliterans given smoking history -Will do a vasculitis workup -Cardiac echo -Vancomycin -Zosyn -Blood cultures -Status post surgical invention by Dr. Marie. Status post amputation of right third, fourth, fifth toe amputations -Full code -Lovenox for DVT prophylaxis Acute hypokalemia has received IV and p.o. replacement this morning, repeat potassium 3.5 Postoperative hypotension -Repeat CBC, CMP, lactic acid -Receiving IV fluids -Watch in the ICU MECHE on CKD, IV fluids Sepsis secondary to right foot cellulitis sepsis features met given leukocytosis elevated CRP, source of infection Currently on Suboxone, resume History of left upper lobe lobectomy Recent hospitalization for RSV pneumonia, streptococcal pneumonia, transfer to [facility] in [place] -Will have to obtain records Attestations 2 Medical Necessity Statement*: Patient requires hospitalization for right foot cellulitis, sepsis, hypokalemia, postoperative hypotension, sepsis Diagnoses HTN (hypertension) I10 Peripheral arterial disease I73.9 CKD (chronic kidney disease), stage III N18.30 Hypokalemia E87.6 Cellulitis of right foot L03.115 Sepsis A41.9 Postoperative hypotension I95.81
--- NOTE | 2024-12-02 15:33 | PC.NURSE ---
VS chnaged to every [address] Yee.
--- NOTE | 2024-12-02 15:52 | PC.NURSE ---
1551 - Report called to Kamlesh in ICU.
--- NOTE | 2024-12-02 16:28 | PC.NURSE ---
arrived from PACU, ao x4, no c/o at this time
[2024-12-02] MEDS: BuSPIRONE 10 mg Tablet PO (17:39)
[2024-12-02] MEDS: memantine 5 mg tablet 10 MG PO (17:39)
[2024-12-02] MEDS: pramipexole 0.25 mg Tablet 0.5 MG PO (17:40)
--- NOTE | 2024-12-02 17:43 | PM.PN ---
Subjective Subjective: Patient is status post right third fourth and fifth toe amputation date of operation 12/02/2024 secondary to cellulitis and osteomyelitis. Vitals/I&O/Wt Last Vital Signs Temp 97.5 F L 12/02/24 16:28 Pulse 59 L 12/02/24 16:45 Resp 19 H 12/02/24 16:45 BP 94/45 12/02/24 16:30 Pulse Ox 96 12/02/24 16:45 O2 Del Method Room Air 12/02/24 16:28 O2 Flow Rate 3 12/02/24 14:05 12/02/24 12/02/24 12/02/24 06:59 14:59 22:59 Intake Total 0 / 550 860 / 860 Output Total 2 / 2 Balance 0 / 50 858 / 858 Weight last 48 hrs Weight 220 lb Weight 220 lb Weight 220 lb Physical Exam Narrative: GENERAL: Patient is alert and oriented ?3 and in no acute distress. The following is a focused bilateral lower extremity exam. VASCULAR: Dorsalis pedis palpable bilaterally. Posterior tibial arteries palpable. NEUROLOGICAL: Protective sensation absent with [place] monofilament test bilateral foot. DERMATOLOGICAL: Improved erythema right dorsal forefoot. Abrasion limited to breakdown of skin at the dorsal aspect of the left great toe and second toe. Grade 2 wound exposed to fat layer with healthy base to the right posterior heel measures 1.8 cm x 1.3 cm x 0.2 cm, the right heel wound has no purulence and no periwound erythema. MUSCULOSKELETAL: History of amputations of digits 1, 2, 3, 4, 5 right foot. Hallux malleus to the left foot nonreducible and hammertoe deformities with sagittal plane dominance left second third fourth and fifth toes. 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 Osteomyelitis on CT scan right fourth toe distal phalanx. Vasquez grade 2 wound to the right posterior heel. Abrasion to the left great toe and second toe limited to breakdown of skin. Patient is status post amputation of right third, fourth and fifth toes. Date of operation 12/02/2024 Cellulitis right foot improving with IV antibiotics -No further surgical intervention anticipated during his hospitalization from the podiatry standpoint. -Patient to keep his surgical dressing with posterior splint clean, dry and intact until his follow-up visit outpatient in podiatry clinic scheduled 12/06/2024 7:45 AM -Recommend 2 weeks of oral antibiotics at discharge per hospitalist. Attestations Medical Necessity Statement*: Patient transferred to ICU for hypotension. 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
[2024-12-02] MEDS: pantoprazole 40 mg SDV IVP (20:11)
[2024-12-02] MEDS: enoxaparin 40 mg/0.4 mL Syringe SUBCUT (20:11)
[2024-12-03] VITALS (35 sets, daily range): BP systolic 89–130; BP diastolic 35–71; PULSE 47–73; RESP 12–23; TEMP 37.1–37.4; O2SAT 94–100; BMI 29.9
[2024-12-03] MEDS: piperacillin-tazobactam 3.375 GM in sodium chloride 0.9% (plus) 50 ML IV ×3 (01:48→17:46)
[2024-12-03] MEDS: morphine 4 mg/mL SDV 1 mL 2 MG IVP ×3 (02:58→15:51)
[2024-12-03 05:29] LABS: Basophils % 0.2 %; Eosinophils # 0.2 10^3/uL (0.0-0.8); Eosinophils % 2.9 %; Hematocrit 32.2 % (37-53); Lymphocytes # 1.1 10^3/uL (0.8-4.8); Lymphocytes % 18.7 %; Mean Corpuscular HGB Conc 30.4 g/dL (30-55); Mean Corpuscular Hemoglobin 27.1 pg (27-33); Mean Corpuscular Volume 89.2 fl (82-101); Mean Platelet Volume 9.3 fL (7.4-10.4); Monocytes # 0.5 10^3/uL (0.2-0.9); Monocytes % 8.5 %; Neutrophils # 4.01 10^3/uL (1.8-7.7); Neutrophils % 69.4 %; Nucleated Red Blood Cells % 0 %; Platelet Count 143 10^3/cmm (157-399); Red Blood Count 3.61 10^6/uL (3.85-5.65); Red Cell Distribution Width 15.4 % (12.1-15.1); White Blood Count 5.78 10^3/uL (3.29-11.43)
[2024-12-03] MEDS: VANCOMYCIN ADD-Vantage 1,000 MG in 0.9% NaCl ADD-Vantage 250 ML 250 MG IV ×2 (05:52→17:46)
[2024-12-03 05:53] LABS: C Reactive Protein 235.3 mg/L (0.0-4.9)
[2024-12-03] MEDS: buPROPion XL (24 HR) 300 mg Tablet PO (05:53)
[2024-12-03 05:56] LABS: NT Pro B Type Natriuretic Pept 2149 pg/mL (0-125); Procalcitonin 0.41 ng/mL (0-0.5)
[2024-12-03 06:06] LABS: Anion Gap 13.5 (5-19); Blood Urea Nitrogen 19 mg/dL (8-23); Carbon Dioxide 22 mmol/L (22-29); Chloride 107 mmol/L (98-107); Creatinine Clr Calc Pharmacy 64.7497; Glucose 94 mg/dL (65-115); Osmolality Calculated 290 mOsm/kg (285-295); Potassium 3.5 mmol/L (3.5-5.1); Sodium 139 mmol/L (136-145)
[2024-12-03] MEDS: tamsulosin 0.4 mg Capsule PO (09:08)
[2024-12-03] MEDS: BuSPIRONE 10 mg Tablet PO ×2 (09:08→17:46)
[2024-12-03] MEDS: roflumilast 500 mcg Tablet PO (09:08)
[2024-12-03] MEDS: desvenlafaxine 50 mg Tablet 100 MG PO (09:08)
[2024-12-03] MEDS: aspirin 81 mg EC Tablet PO (09:08)
[2024-12-03] MEDS: montelukast sodium 10 mg Tablet PO (09:08)
[2024-12-03] MEDS: pramipexole 0.25 mg Tablet 0.5 MG PO ×2 (09:09→17:46)
[2024-12-03] MEDS: memantine 5 mg tablet 10 MG PO ×2 (09:09→17:46)
--- NOTE | 2024-12-03 15:57 | PM.PN ---
Subjective Subjective: Patient was seen this morning, he is alert x 3, following all commands, no fevers, chills, no cough, no nausea, no vomiting, abdominal pain, no Lantus currently says his hypertension has improved, he remains off his blood pressure medications, he has no complaints this morning Vitals/I&O/Wt Last Vital Signs Temp 98.8 F 12/03/24 02:45 Pulse 49 L 12/03/24 12:00 Resp 18 12/03/24 08:00 BP 115/55 12/03/24 12:00 Pulse Ox 95 12/03/24 12:00 O2 Del Method Room Air 12/03/24 04:15 O2 Flow Rate 3 12/02/24 14:05 12/03/24 12/03/24 12/03/24 06:59 14:59 22:59 Intake Total 50 / 1210 400 / 400 Output Total 325 / 1027 400 / 400 Balance -275 / 183 0 / 0 Weight last 48 hrs Weight 102.965 kg Weight 99.79 kg Weight 99.79 kg Weight 99.79 kg Physical Exam Const: COMMON NORMALS: no acute distress and patient oriented x3 Resp: COMMON NORMALS: normal respiratory effort, No retractions, No use of accessory muscles and clear to auscultation bilaterally AUSCULTATION: clear to auscultation bilaterally Cardio: COMMON NORMALS: regular rate, regular rhythm, S1 normal heart sound present and S2 normal heart sound present RATE: regular rate RHYTHM: regular rhythm HEART SOUNDS: S1 normal heart sound present and S2 normal heart sound present GI: COMMON NORMALS: Normal to inspection, nondistended, normoactive bowel sounds present and non-tender Extremity: COMMON NORMALS: no pedal edema Neuro: COMMON NORMALS: patient oriented x3 Psych: COMMON NORMALS: mental status grossly normal Skin: NARRATIVE SKIN EXAM: Right foot wrapped Left lower extremity, second third digit superficial erythema Data 12/03/24 05:11 12/03/24 05:11 Micro: Microbiology 12/01/24 17:41 Blood Culture - Preliminary Blood NEGATIVE TO DATE 12/01/24 17:35 Blood Culture - Preliminary Blood NEGATIVE TO DATE A&P Assessment and plan (1) HTN (hypertension): (2) Peripheral arterial disease: (3) CKD (chronic kidney disease), stage III: (4) Hypokalemia: (5) Cellulitis of right foot: (6) Sepsis: (7) Postoperative hypotension: Plan Right foot cellulitis, with sepsis -Has a history of smoking -History of peripheral vascular disease CONCLUSIONS 1. Slightly diminished resting RILEY of 0.9 bilaterally, suggesting mild peripheral artery disease 2. Mild to moderate diffuse plaque in the femoral and popliteal arteries bilaterally 3. 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 2. Other chronic and postsurgical findings detailed above -Patient's status post amputation of third, fourth, fifth toe amputation postop day 1 -Plan -As risk factor for thromboangiitis obliterans given smoking history -Will do a vasculitis workup -Cardiac echo pending -Will continue antibiotics as patient has cellulitis extending into the forefoot, also has cellulitis left foot, second and third digit -Vancomycin -Zosyn -Blood cultures pending -Full code -Lovenox for DVT prophylaxis Acute hypokalemia, resolved Postoperative hypotension, likely anesthetic effect, resolved MECHE on CKD, 1.3 Sepsis secondary to right foot cellulitis sepsis features met given leukocytosis elevated CRP, source of infection Currently on Suboxone, resume History of left upper lobe lobectomy Recent hospitalization for RSV pneumonia, streptococcal pneumonia, transfer to [facility] in [place] -Will have to obtain records Plan for today PT OT, IV antibiotics, monitor blood pressures, moved to medical floors Attestations Medical Necessity Statement*: Patient requires hospitalization for right foot cellulitis with sepsis status post second third fourth digit amputation, with concerns for persistent cellulitis, postoperative hypertension, Diagnoses HTN (hypertension) I10 Peripheral arterial disease I73.9 CKD (chronic kidney disease), stage III N18.30 Hypokalemia E87.6 Cellulitis of right foot L03.115 Sepsis A41.9 Postoperative hypotension I95.81
[2024-12-03 20:32] LABS: Vancomycin Trough 36.7 ug/mL (10-15)
[2024-12-03] MEDS: pantoprazole 40 mg SDV IVP (20:52)
[2024-12-03] MEDS: enoxaparin 40 mg/0.4 mL Syringe SUBCUT (20:53)
[2024-12-03] MEDS: atorvastatin 40 mg Tablet PO (20:54)
[2024-12-03] MEDS: pregabalin 150 mg Capsule PO (20:54)
[2024-12-04] VITALS (14 sets, daily range): BP systolic 99–149; BP diastolic 45–68; PULSE 48–69; RESP 15–18; TEMP 36.4–36.7; O2SAT 92–100
[2024-12-04] MEDS: piperacillin-tazobactam 3.375 GM in sodium chloride 0.9% (plus) 50 ML IV (01:09)
[2024-12-04] MEDS: morphine 4 mg/mL SDV 1 mL 2 MG IVP ×3 (03:45→20:40)
[2024-12-04 04:16] LABS: Basophils % 0.5 %; Eosinophils # 0.1 10^3/uL (0.0-0.8); Eosinophils % 2.9 %; Hematocrit 31.7 % (37-53); Lymphocytes # 1.2 10^3/uL (0.8-4.8); Lymphocytes % 27.9 %; Mean Corpuscular HGB Conc 30.6 g/dL (30-55); Mean Corpuscular Hemoglobin 27.3 pg (27-33); Mean Corpuscular Volume 89.3 fl (82-101); Monocytes # 0.4 10^3/uL (0.2-0.9); Monocytes % 9.3 %; Neutrophils # 2.46 10^3/uL (1.8-7.7); Neutrophils % 58.7 %; Nucleated Red Blood Cells % 0 %; Platelet Count 139 10^3/cmm (157-399); Red Blood Count 3.55 10^6/uL (3.85-5.65); Red Cell Distribution Width 14.9 % (12.1-15.1); White Blood Count 4.19 10^3/uL (3.29-11.43)
[2024-12-04 05:00] LABS: NT Pro B Type Natriuretic Pept 2694 pg/mL (0-125); Procalcitonin 0.27 ng/mL (0-0.5)
[2024-12-04 05:03] LABS: C Reactive Protein 122.6 mg/L (0.0-4.9)
[2024-12-04 05:11] LABS: Anion Gap 13.4 (5-19); Blood Urea Nitrogen 17 mg/dL (8-23); Calcium 8.2 mg/dL (8.5-10.5); Carbon Dioxide 22 mmol/L (22-29); Chloride 109 mmol/L (98-107); Creatinine Clr Calc Pharmacy 76.5223; Glucose 113 mg/dL (65-115); Osmolality Calculated 294 mOsm/kg (285-295); Potassium 3.4 mmol/L (3.5-5.1); Sodium 141 mmol/L (136-145)
[2024-12-04] MEDS: buPROPion XL (24 HR) 300 mg Tablet PO (05:46)
[2024-12-04] MEDS: VANCOMYCIN ADD-Vantage 1,000 MG in 0.9% NaCl ADD-Vantage 250 ML 250 MG IV (05:47)
--- NOTE | 2024-12-04 06:01 | PC.NURSE ---
When hanging pt vancomycin this nurse noted that at 191 prior to transferring to [facility] floor from ICU pt had a trough drawn w/a level of 36.7. Further investigation concluded that the through was drawn after 4th infusion. Called telepharmacy for guidance regarding resulted vanc trough. Pharmacy stated that the vanc trough appears to be inaccurate, hang current dose and pharmacy will order a trough prior to the next administration. Charge nurse notified.
[2024-12-04] MEDS: pramipexole 0.25 mg Tablet 0.5 MG PO ×2 (08:03→17:14)
[2024-12-04] MEDS: tamsulosin 0.4 mg Capsule PO (08:03)
[2024-12-04] MEDS: BuSPIRONE 10 mg Tablet PO ×2 (08:03→17:15)
[2024-12-04] MEDS: aspirin 81 mg EC Tablet PO (08:03)
[2024-12-04] MEDS: roflumilast 500 mcg Tablet PO (08:03)
[2024-12-04] MEDS: memantine 5 mg tablet 10 MG PO ×2 (08:03→17:14)
[2024-12-04] MEDS: desvenlafaxine 50 mg Tablet 100 MG PO (08:03)
[2024-12-04] MEDS: montelukast sodium 10 mg Tablet PO (08:03)
[2024-12-04] MEDS: pregabalin 150 mg Capsule PO ×2 (08:04→17:15)
--- NOTE | 2024-12-04 12:58 | PM.PN ---
Subjective Subjective: Patient was seen this morning he is alert oriented x 3, following all commands no fevers, no chills, no cough Vitals/I&O/Wt Last Vital Signs Temp 97.5 F L 12/04/24 11:25 Pulse 56 L 12/04/24 11:25 Resp 15 12/04/24 11:25 BP 99/51 12/04/24 11:25 Pulse Ox 93 12/04/24 11:25 O2 Del Method Nasal Cannula 12/04/24 11:25 O2 Flow Rate 2.5 12/03/24 22:00 12/03/24 12/04/24 12/04/24 22:59 06:59 14:59 Intake Total 550 / 1000 300 / 1300 360 / 360 Output Total 200 / 600 200 / 800 Balance 350 / 400 100 / 500 360 / 360 Weight last 48 hrs Weight 100.834 kg Weight 102.965 kg Physical Exam Const: COMMON NORMALS: no acute distress and patient oriented x3 Resp: COMMON NORMALS: normal respiratory effort, No retractions, No use of accessory muscles and clear to auscultation bilaterally AUSCULTATION: clear to auscultation bilaterally Cardio: COMMON NORMALS: regular rate, regular rhythm, S1 normal heart sound present and S2 normal heart sound present RATE: regular rate RHYTHM: regular rhythm HEART SOUNDS: S1 normal heart sound present and S2 normal heart sound present GI: COMMON NORMALS: Normal to inspection, nondistended, normoactive bowel sounds present and non-tender Extremity: COMMON NORMALS: no pedal edema Neuro: COMMON NORMALS: patient oriented x3 Psych: COMMON NORMALS: mental status grossly normal Data 12/04/24 04:06 12/04/24 04:06 A&P Assessment and plan (1) HTN (hypertension): (2) Peripheral arterial disease: (3) CKD (chronic kidney disease), stage III: (4) Hypokalemia: (5) Cellulitis of right foot: (6) Sepsis: (7) Postoperative hypotension: Plan Right foot cellulitis, with sepsis -Has a history of smoking -History of peripheral vascular disease CONCLUSIONS 1. Slightly diminished resting RILEY of 0.9 bilaterally, suggesting mild peripheral artery disease 2. Mild to moderate diffuse plaque in the femoral and popliteal arteries bilaterally 3. 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 2. Other chronic and postsurgical findings detailed above -Patient's status post amputation of third, fourth, fifth toe amputation postop day 1 -Plan -As risk factor for thromboangiitis obliterans given smoking history -Will do a vasculitis workup -Cardiac echo pending -Will continue antibiotics as patient has cellulitis extending into the forefoot, also has cellulitis left foot, second and third digit -De-escalate off vancomycin and Zosyn to p.o. antibiotics -Blood cultures so far no growth -Full code -Lovenox for DVT prophylaxis Acute hypokalemia, resolved Postoperative hypotension, likely anesthetic effect, resolved MECHE on CKD, 1.3 Sepsis secondary to right foot cellulitis sepsis features met given leukocytosis elevated CRP, source of infection Currently on Suboxone, resume History of left upper lobe lobectomy Recent hospitalization for RSV pneumonia, streptococcal pneumonia, transfer to [facility] in [place] -Will have to obtain records Plan for today PT OT, IV antibiotics, monitor blood pressures, moved to medical floors Attestations Medical Necessity Statement*: Patient requires hospitalization for right foot cellulitis Diagnoses HTN (hypertension) I10 Peripheral arterial disease I73.9 CKD (chronic kidney disease), stage III N18.30 Hypokalemia E87.6 Cellulitis of right foot L03.115 Sepsis A41.9 Postoperative hypotension I95.81
[2024-12-04] MEDS: potassium chloride ER 20 mEq Tablet 40 MEQ PO (13:42)
[2024-12-04] MEDS: amoxicillin-clav 875-125 mg Tablet 1 TAB PO (17:14)
[2024-12-04] MEDS: doxycycline 100 mg Tablet PO (17:15)
[2024-12-04 17:57] LABS: Vancomycin Trough 19.9 ug/mL (10-15)
[2024-12-04] MEDS: enoxaparin 40 mg/0.4 mL Syringe SUBCUT (20:28)
[2024-12-04] MEDS: pantoprazole 40 mg SDV IVP (20:28)
[2024-12-04] MEDS: atorvastatin 40 mg Tablet PO (20:28)
[2024-12-05] VITALS (10 sets, daily range): BP systolic 128–144; BP diastolic 62–70; PULSE 48–55; RESP 17–18; TEMP 36.3–36.9; O2SAT 92–100
[2024-12-05] MEDS: pregabalin 150 mg Capsule PO ×2 (02:47→12:15)
[2024-12-05 05:34] LABS: Basophils % 0.7 %; Eosinophils # 0.1 10^3/uL (0.0-0.8); Eosinophils % 1.8 %; Hematocrit 30.4 % (37-53); Lymphocytes # 1.3 10^3/uL (0.8-4.8); Lymphocytes % 29.5 %; Mean Corpuscular HGB Conc 32.6 g/dL (30-55); Mean Corpuscular Hemoglobin 27.5 pg (27-33); Mean Corpuscular Volume 84.4 fl (82-101); Monocytes # 0.4 10^3/uL (0.2-0.9); Monocytes % 8.4 %; Neutrophils # 2.67 10^3/uL (1.8-7.7); Neutrophils % 59.2 %; Nucleated Red Blood Cells % 0 %; Platelet Count 164 10^3/cmm (157-399); Red Cell Distribution Width 14.7 % (12.1-15.1); White Blood Count 4.51 10^3/uL (3.29-11.43)
[2024-12-05] MEDS: morphine 4 mg/mL SDV 1 mL 2 MG IVP (05:38)
[2024-12-05] MEDS: buPROPion XL (24 HR) 300 mg Tablet PO (05:38)
[2024-12-05 05:49] LABS: Anion Gap 13.8 (5-19); Blood Urea Nitrogen 14 mg/dL (8-23); Calcium 8.2 mg/dL (8.5-10.5); Carbon Dioxide 24 mmol/L (22-29); Chloride 107 mmol/L (98-107); Creatinine Clr Calc Pharmacy 69.4746; Glucose 95 mg/dL (65-115); Osmolality Calculated 292 mOsm/kg (285-295); Potassium 3.8 mmol/L (3.5-5.1); Sodium 141 mmol/L (136-145)
[2024-12-05] MEDS: desvenlafaxine 50 mg Tablet 100 MG PO (08:41)
[2024-12-05] MEDS: memantine 5 mg tablet 10 MG PO ×2 (08:41→17:39)
[2024-12-05] MEDS: roflumilast 500 mcg Tablet PO (08:41)
[2024-12-05] MEDS: pramipexole 0.25 mg Tablet 0.5 MG PO ×2 (08:41→17:39)
[2024-12-05] MEDS: amoxicillin-clav 875-125 mg Tablet 1 TAB PO ×2 (08:41→17:37)
[2024-12-05] MEDS: BuSPIRONE 10 mg Tablet PO ×2 (08:41→17:37)
[2024-12-05] MEDS: tamsulosin 0.4 mg Capsule PO (08:41)
[2024-12-05] MEDS: montelukast sodium 10 mg Tablet PO (08:41)
[2024-12-05] MEDS: doxycycline 100 mg Tablet PO ×2 (08:41→17:38)
[2024-12-05] MEDS: aspirin 81 mg EC Tablet PO (08:41)
[2024-12-05 12:11] LABS: COMPLEMENT COMPONENT C3C 160 mg/dL (82-185); COMPLEMENT COMPONENT C4C 29 mg/dL (15-53)
[2024-12-05] MEDS: HYDROcodone-acetaminophen 5-325 mg Tablet 1 TAB PO ×2 (12:13→20:01)
--- NOTE | 2024-12-05 13:05 | PC.SOCIAL ---
IMM Update pg 2 of IMM Updated and reviewed w/ patient. Copy provided and copy dated, initialed and placed in chart.
[2024-12-05 13:29] LABS: HEP C RNA Viral Load Quant <1.18 NOT DETECTED Log IU/mL (NOT DETECTED); HEP C RNA Viral Load Quant <15 NOT DETECTED IU/mL (NOT DETECTED)
[2024-12-05 14:54] LABS: COMPLEMENT, TOTAL (CH50) >60 U/mL (31-60)
--- NOTE | 2024-12-05 15:31 | P.PN_ITS ---
Subjective 2 Subjective: Patient was seen this morning, denies any fevers, chills, cough, no nausea, no vomiting Vitals/I&O/Wt Last Vital Signs Temp 97.7 F 12/05/24 11:33 Pulse 50 L 12/05/24 11:33 Resp 18 12/05/24 11:33 BP 132/62 12/05/24 11:33 Pulse Ox 97 12/05/24 11:33 O2 Del Method Nasal Cannula 12/05/24 11:33 O2 Flow Rate 2 12/05/24 07:41 12/05/24 12/05/24 12/05/24 06:59 14:59 22:59 Intake Total 720 / 720 Output Total 300 / 650 550 / 550 Balance -300 / 270 170 / 170 Weight last 48 hrs Weight 100.834 kg Weight 100.834 kg Physical Exam 2 Const: COMMON NORMALS: no acute distress and patient oriented x3 HENMT: COMMON NORMALS: normocephalic HEAD & SCALP: normocephalic Resp: COMMON NORMALS: normal respiratory effort, No retractions, No use of accessory muscles and clear to auscultation bilaterally AUSCULTATION: clear to auscultation bilaterally Cardio: COMMON NORMALS: regular rate, regular rhythm, S1 normal heart sound present and S2 normal heart sound present RATE: regular rate RHYTHM: r egular rhythm HEART SOUNDS: S1 normal heart sound present and S2 normal heart sound present GI: COMMON NORMALS: Normal to inspection, nondistended, normoactive bowel sounds present and non-tender Extremity: COMMON NORMALS: no pedal edema NARRATIVE EXTREMITY EXAM: Right lower extremity wrapped Neuro: COMMON NORMALS: patient oriented x3 Psych: COMMON NORMALS: mental status grossly normal Data 12/05/24 05:21 12/05/24 05:21 A&P Assessment and plan (1) HTN (hypertension): (2) Peripheral arterial disease: (3) CKD (chronic kidney disease), stage III: (4) Hypokalemia: (5) Cellulitis of right foot: (6) Sepsis: (7) Postoperative hypotension: Plan Right foot cellulitis, with sepsis -Has a history of smoking -History of peripheral vascular disease CONCLUSIONS 1. Slightly diminished resting RILEY of 0.9 bilaterally, suggesting mild peripheral artery disease 2. Mild to moderate diffuse plaque in the femoral and popliteal arteries bilaterally 3. 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 2. Other chronic and postsurgical findings detailed above -Patient's status post amputation of third, fourth, fifth toe amputation postop day 1 -Plan -As risk factor for thromboangiitis obliterans given smoking history -ESR 19, ALEXI pending -Will continue antibiotics as patient has cellulitis extending into the forefoot, also has cellulitis left foot, second and third digit -Currently on p.o. antibiotics -Blood cultures so far no growth -Full code -Lovenox for DVT prophylaxis Acute hypokalemia, resolved Postoperative hypotension, likely anesthetic effect, resolved MECHE on CKD, 1.3 Sepsis secondary to right foot cellulitis sepsis features met given leukocytosis elevated CRP, source of infection Currently on Suboxone, resume History of left upper lobe lobectomy Recent hospitalization for RSV pneumonia, streptococcal pneumonia, transfer to [facility] in [place] -Will have to obtain records Plan for today PT OT, p.o. antibiotics, monitor blood pressures, moved to medical floors Attestations 2 Medical Necessity Statement*: Patient requires hospitalization for right foot cellulitis, Diagnoses HTN (hypertension) I10 Peripheral arterial disease I73.9 CKD (chronic kidney disease), stage III N18.30 Hypokalemia E87.6 Cellulitis of right foot L03.115 Sepsis A41.9 Postoperative hypotension I95.81
[2024-12-05 15:48] LABS: CENTROMERE B ANTIBODY <1.0 NEG AI (<1.0 NEG); JO-1 ANTIBODY <1.0 NEG AI (<1.0 NEG); RNP ANTIBODY <1.0 NEG AI (<1.0 NEG); SCL-70 ANTIBODY <1.0 NEG AI (<1.0 NEG); SJOGREN'S ANTIBODY (SS-A) <1.0 NEG AI (<1.0 NEG); SM ANTIBODY <1.0 NEG AI (<1.0 NEG); SS-B <1.0 NEG AI (<1.0 NEG)
[2024-12-05] MEDS: enoxaparin 40 mg/0.4 mL Syringe SUBCUT (19:50)
[2024-12-05] MEDS: atorvastatin 40 mg Tablet PO (19:51)
[2024-12-05] MEDS: pantoprazole 40 mg SDV IVP (19:51)
[2024-12-06] VITALS (7 sets, daily range): BP systolic 101–159; BP diastolic 61–70; PULSE 47–99; RESP 17–18; TEMP 36.6–37.1; O2SAT 95–100
[2024-12-06 06:04] LABS: Basophils % 0.6 %; Eosinophils # 0.1 10^3/uL (0.0-0.8); Eosinophils % 1.7 %; Hematocrit 33.4 % (37-53); Lymphocytes # 1.6 10^3/uL (0.8-4.8); Lymphocytes % 34.6 %; Mean Corpuscular HGB Conc 31.4 g/dL (30-55); Mean Corpuscular Hemoglobin 27.6 pg (27-33); Mean Corpuscular Volume 87.9 fl (82-101); Mean Platelet Volume 9.3 fL (7.4-10.4); Monocytes # 0.4 10^3/uL (0.2-0.9); Neutrophils # 2.53 10^3/uL (1.8-7.7); Neutrophils % 54.5 %; Nucleated Red Blood Cells % 0 %; Platelet Count 193 10^3/cmm (157-399); Red Cell Distribution Width 14.6 % (12.1-15.1); White Blood Count 4.65 10^3/uL (3.29-11.43)
[2024-12-06] MEDS: buPROPion XL (24 HR) 300 mg Tablet PO (06:30)
[2024-12-06 06:33] LABS: Anion Gap 12.1 (5-19); Blood Urea Nitrogen 16 mg/dL (8-23); Calcium 8.6 mg/dL (8.5-10.5); Carbon Dioxide 26 mmol/L (22-29); Chloride 106 mmol/L (98-107); Creatinine Clr Calc Pharmacy 69.4746; Glucose 80 mg/dL (65-115); Osmolality Calculated 290 mOsm/kg (285-295); Potassium 4.1 mmol/L (3.5-5.1); Sodium 140 mmol/L (136-145)
[2024-12-06] MEDS: montelukast sodium 10 mg Tablet PO (08:14)
[2024-12-06] MEDS: memantine 5 mg tablet 10 MG PO ×2 (08:14→17:02)
[2024-12-06] MEDS: amoxicillin-clav 875-125 mg Tablet 1 TAB PO ×2 (08:14→17:02)
[2024-12-06] MEDS: desvenlafaxine 50 mg Tablet 100 MG PO (08:14)
[2024-12-06] MEDS: aspirin 81 mg EC Tablet PO (08:15)
[2024-12-06] MEDS: pramipexole 0.25 mg Tablet 0.5 MG PO ×2 (08:15→17:02)
[2024-12-06] MEDS: BuSPIRONE 10 mg Tablet PO ×2 (08:15→17:02)
[2024-12-06] MEDS: HYDROcodone-acetaminophen 5-325 mg Tablet 1 TAB PO ×4 (08:15→20:56)
[2024-12-06] MEDS: doxycycline 100 mg Tablet PO ×2 (08:15→17:02)
[2024-12-06] MEDS: tamsulosin 0.4 mg Capsule PO (08:15)
[2024-12-06] MEDS: roflumilast 500 mcg Tablet PO (08:15)
[2024-12-06] MEDS: pregabalin 150 mg Capsule PO ×2 (08:19→16:44)
--- NOTE | 2024-12-06 10:37 | PM.DCS ---
Discharge Providers Date of Admission: 12/01/24 18:55 Date of Discharge: December 06, 2024 Attending Provider at Admission: Finn Cottrell MD Attending Provider at Discharge: Finn Cottrell MD Primary Care Provider: PAT Herbert Diagnoses at Discharge Discharge Diagnosis (1) HTN (hypertension): Status: Acute (2) Peripheral arterial disease: Status: Acute (3) CKD (chronic kidney disease), stage III: Status: Acute (4) Hypokalemia: Status: Acute (5) Cellulitis of right foot: Status: Acute (6) Sepsis: Status: Acute (7) Postoperative hypotension: Status: Acute Reason for Visit Reason for Visit: infected right foot Hospital Course Hospital Course Ben Mendoza is a 74 year old male with a past medical history of right foot infection, peripheral vascular disease, hypertension, smoker, COPD, CKD , history of left upper lobe lobectomy, restless leg syndrome, history of amputation of right second toe recent hospitalization for respiratory failure streptococcal pneumonia, RSV pneumonia, sepsis, hyperbilirubinemia who presents [facility] who presents [facility] due to increased swelling of the right foot, has a complaint of right lower extremity pain, chills, fatigue, malaise, falls no chest pain Or shortness of breath, no cough, no dysuria, hematuria Patient admitted to [facility] for Right foot cellulitis, with sepsis -Has a history of smoking -History of peripheral vascular disease CONCLUSIONS 1. Slightly diminished resting RILEY of 0.9 bilaterally, suggesting mild peripheral artery disease 2. Mild to moderate diffuse plaque in the femoral and popliteal arteries bilaterally 3. 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 2. Other chronic and postsurgical findings detailed above -Orthopedic service was consulted -Received IV antibiotics -Patient's status post amputation of third, fourth, fifth toe amputation -Overall clinically improved -Is nonweightbearing right lower extremity -Discharge to [facility] inpatient rehab -Follow-up with Dr. Marie for dressing change -Discharged on 10 remaining days of Augmentin and doxycycline -For concerns for peripheral vascular disease continue aspirin, statin, follow-up with cardiology as outpatient -As risk factor for thromboangiitis obliterans given smoking history, which potentially could be a significant component, advised to quit smoking -Patient was advised to use oxycodone sparingly for pain, do not drive or operate machinery or drink while taking medication Patient's hospitalization was complicated by postoperative hypotension, requiring ICU admission for close monitoring, likely anesthetic effect, resolved on discharge Physical Exam Const: COMMON NORMALS: no acute distress and patient oriented x3 Resp: COMMON NORMALS: normal respiratory effort, No retractions, No use of accessory muscles and clear to auscultation bilaterally AUSCULTATION: clear to auscultation bilaterally Cardio: COMMON NORMALS: regular rate, regular rhythm, S1 normal heart sound present and S2 normal heart sound present RATE: regular rate RHYTHM: regular rhythm HEART SOUNDS: S1 normal heart sound present and S2 normal heart sound present GI: COMMON NORMALS: Normal to inspection, nondistended, normoactive bowel sounds present and non-tender Extremity: COMMON NORMALS: no pedal edema Neuro: COMMON NORMALS: patient oriented x3 Psych: COMMON NORMALS: mental status grossly normal Discharge Data Studies Completed and Pending Completed Studies During Hospitalization Category Date Time Status CT foot RT wo con* [id number] Stat Cat Scan 12/01/24 17:41 Completed XR chest 1V portable [id number] Stat Exams 12/01/24 17:54 Completed XR foot RT min 3V* [id number] Stat Exams 12/01/24 16:16 [place] [id number] Stat Ultrasound 12/01/24 17:41 Completed CV. echo complete* [id number] Stat Ultrasound 12/01/24 18:06 Completed Pending at discharge Category Date Time Status ALEXI Profile Rheumatology Stat Lab 12/01/24 18:40 Results ANCA [Anti-Neutrophil Cytoplasmic AB] Stat Lab 12/01/24 18:40 Received Basic Metabolic Panel AM LABS Lab 12/07/24 04:00 Ordered Blood Culture Stat Lab 12/01/24 17:41 Results Complete Blood Count w/Auto AM LABS Lab 12/07/24 04:00 Ordered Pathology: Surgical [PTH] Routine Pth 12/02/24 11:59 Received Radiology Impressions Foot X-Ray 12/01/24 16:16 IMPRESSION: Negative for osteomyelitis. Foot CT 12/01/24 17:41 IMPRESSION: 1. 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 2. Other chronic and postsurgical findings detailed above Chest X-Ray 12/01/24 17:54 IMPRESSION: 1. 6 cm ovoid soft tissue mass at the LEFT hilum. This may represent residual pneumonia and/or atelectasis. Recurrent mass not excluded. Status post partial LEFT pneumonectomy. 2. No other significant finding. Laboratory Results WBC 4.65 10^3/uL (3.29-11.43) 12/06/24 05:17 RBC 3.80 10^6/uL (3.85-5.65) L 12/06/24 05:17 Hgb 10.50 g/dL (11.27-16.99) L 12/06/24 05:17 Hct 33.4 % (37-53) L 12/06/24 05:17 MCV 87.9 fl (82-101) 12/06/24 05:17 MCH 27.6 pg (27-33) 12/06/24 05:17 MCHC 31.4 g/dL (30-55) 12/06/24 05:17 RDW 14.6 % (12.1-15.1) 12/06/24 05:17 Plt Count 193 10^3/cmm (157-399) 12/06/24 05:17 MPV 9.3 fL (7.4-10.4) 12/06/24 05:17 Neut % (Auto) 54.5 % 12/06/24 05:17 Lymph % (Auto) 34.6 % 12/06/24 05:17 [place] % (Auto) 8.0 % 12/06/24 05:17 Eos % (Auto) 1.7 % 12/06/24 05:17 Baso % (Auto) 0.6 % 12/06/24 05:17 Neut # (Auto) 2.53 10^3/uL (1.8-7.7) 12/06/24 05:17 Lymph # (Auto) 1.6 10^3/uL (0.8-4.8) 12/06/24 05:17 [place] # (Auto) 0.4 10^3/uL (0.2-0.9) 12/06/24 05:17 Eos # (Auto) 0.1 10^3/uL (0.0-0.8) 12/06/24 05:17 Baso # (Auto) 0.0 10^3/uL (0.0-0.1) 12/06/24 05:17 Nucleated RBC % (auto) 0 % 12/06/24 05:17 Nucleated RBCs # 0.0 /100WBC 12/06/24 05:17 ESR 19 mm/hr (0-10) H 12/01/24 16:48 D-Dimer 1.95 ug/mLFEU (0-0.59) H 12/01/24 18:10 Sodium 140 mmol/L (136-145) 12/06/24 05:17 Potassium 4.1 mmol/L (3.5-5.1) 12/06/24 05:17 Chloride 106 mmol/L (98-107) 12/06/24 05:17 Carbon Dioxide 26 mmol/L (22-29) 12/06/24 05:17 Anion Gap 12.1 (5-19) 12/06/24 05:17 BUN 16 mg/dL (8-23) 12/06/24 05:17 Creatinine 1.2 mg/dL (0.7-1.2) 12/06/24 05:17 GFR Calculation Not Reportable 12/06/24 05:17 Glucose 80 mg/dL (65-115) 12/06/24 05:17 POC Glucose 146 mg/dL (70-110) H 12/02/24 12:14 Calculated Osmolality 290 mOsm/kg (285-295) 12/06/24 05:17 Lactic Acid 1.4 mmol/L (0.5-2.2) 12/02/24 14:08 Calcium 8.6 mg/dL (8.5-10.5) 12/06/24 05:17 Magnesium 2.4 mg/dL (1.7-2.3) H 12/01/24 17:41 Total Bilirubin 0.9 mg/dL (0.15-1.2) 12/02/24 14:08 AST 8 U/L (0-40) 12/02/24 14:08 ALT 12 U/L (0-41) 12/02/24 14:08 Alkaline Phosphatase 101 U/L (40-130) 12/02/24 14:08 Creatine Kinase 31 U/L (39-308) L 12/01/24 18:10 Troponin T Baseline 47 ng/L (0-15) H 12/01/24 16:48 Troponin T 120 Minute 44.03 ng/L (0-15) H 12/01/24 18:56 Delta Troponin T -2.97 ABS# (0-10) L 12/01/24 18:56 Troponin T Hi Sens 6Hr 46.74 ng/L (0-15) H 12/01/24 22:48 Troponin T Hi Sens 6Hr Delta -0.26 ng/L (0-12) L 12/01/24 22:48 C-Reactive Protein 122.6 mg/L (0.0-4.9) H 12/04/24 04:06 NT-Pro-B Natriuret Pep 2694 pg/mL (0-125) H 12/04/24 04:06 Total Protein 5.8 g/dL (6.6-8.7) L D 12/02/24 14:08 Albumin 2.6 g/dL (3.5-5.2) L 12/02/24 14:08 Globulin 3.2 g/dL (1.3-4.6) 12/02/24 14:08 Procalcitonin 0.27 ng/mL (0-0.5) 12/04/24 04:06 TSH 0.60 uIU/mL (0.27-4.20) 12/01/24 20:30 Urine Color Yellow (Yellow) 12/02/24 00:50 Urine Appearance Clear (CLEAR) 12/02/24 00:50 Urine pH 5.5 (5-7) 12/02/24 00:50 Ur Specific Cisco 1.023 (1.005-1.030) 12/02/24 00:50 Urine Protein 2+ (Negative) A 12/02/24 00:50 Urine Glucose (UA) 2+ (Normal) H 12/02/24 00:50 Urine Ketones Negative (Negative) 12/02/24 00:50 Urine Blood Negative (Negative) 12/02/24 00:50 Urine Nitrate Negative (Negative) 12/02/24 00:50 Urine Bilirubin Negative (Negative) 12/02/24 00:50 Urine Urobilinogen 1.0 mg/dL (Negative) 12/02/24 00:50 Ur Leukocyte Esterase Negative (Negative) 12/02/24 00:50 Urine RBC 3-5 /hpf (0-2) 12/02/24 00:50 Urine WBC 0-5 /hpf (0-5) 12/02/24 00:50 Ur Squamous Epith Cells 0-5 /hpf (0-5) 12/02/24 00:50 Amorphous Sediment Not Reportable 12/02/24 00:50 Urine Bacteria None seen /hpf (NONE) 12/02/24 00:50 Hyaline Casts 0.81 /lpf 12/02/24 00:50 Vancomycin Trough 19.9 ug/mL (10-15) H 12/04/24 17:31 FABRICE-1 Antibody <1.0 neg AI (<1.0 NEG) 12/01/24 18:40 SS-A Antibody <1.0 neg AI (<1.0 NEG) 12/01/24 18:40 SS-B Antibody <1.0 neg AI (<1.0 NEG) 12/01/24 18:40 Sm (Dinh) Antibody <1.0 neg AI (<1.0 NEG) 12/01/24 18:40 TRUST ADMINISTRATIVE ASSISTANT Antibody <1.0 neg AI (<1.0 NEG) 12/01/24 18:40 Scl-70 Antibody <1.0 neg AI (<1.0 NEG) 12/01/24 18:40 Centromere B Antibody <1.0 neg AI (<1.0 NEG) 12/01/24 18:40 Complement C3c 160 mg/dL (82-185) 12/01/24 18:40 Complement C4 26 mg/dL (10-40) 12/01/24 18:10 Complement C4c 29 mg/dL (15-53) 12/01/24 18:40 CH50 Classical Pathway >60 U/mL (31-60) H 12/01/24 18:40 Adenovirus (PCR) Not detected (NOT DETECT) 12/02/24 02:06 C. pneumoniae DNA (PCR) Not detected (NOT DETECT) 12/02/24 02:06 Coronavirus 229E (PCR) Not detected (NOT DETECT) 12/02/24 02:06 Hepatitis A IgM Ab Non-reactive (Nonreactive) 12/01/24 20:30 Hep Bs Antigen Non-reactive (Nonreactive) 12/01/24 20:30 Hep B Core IgM Ab Non-reactive (Nonreactive) 12/01/24 20:30 Hepatitis C Antibody Reactive (Nonreactive) H 12/01/24 20:30 HCV RNA (PCR) IUs/ml <1.18 not detected Log IU/mL (NOT DETECTED) 12/01/24 22:09 HCV RNA (PCR) IU log10 <15 not detected IU/mL (NOT DETECTED) 12/01/24 22:09 HIV 1&2 Ab & HIV 1 Ag Non-reactive (Non-Reactiv) 12/01/24 20:30 HIV 1&2 Antibody Non-reactive (Non-Reactiv) 12/01/24 20:30 Human Metapneumovir PCR Not detected (NOT DETECT) 12/02/24 02:06 Influenza A (H1) PCR Not detected (NOT DETECT) 12/02/24 02:06 Influ A (H1/09) PCR Not detected (NOT DETECT) 12/02/24 02:06 Influenza A (H3) PCR Not detected (NOT DETECT) 12/02/24 02:06 Influenza Type A (PCR) Not detected (NOT DETECT) 12/02/24 02:06 Influenza Type B (PCR) Not detected (NOT DETECT) 12/02/24 02:06 M. pneumoniae (PCR) Not detected (NOT DETECT) 12/02/24 02:06 Parainfluenza 1 (PCR) Not detected (NOT DETECT) 12/02/24 02:06 Parainfluenza 2 (PCR) Not detected (NOT DETECT) 12/02/24 02:06 Parainfluenza 3 (PCR) Not detected (NOT DETECT) 12/02/24 02:06 Parainfluenza 4 (PCR) Not detected (NOT DETECT) 12/02/24 02:06 RSV Type A (PCR) Not detected (NOT DETECT) 12/02/24 02:06 RSV Type B (PCR) Not detected (NOT DETECT) 12/02/24 02:06 Entero/Rhino (PCR) Not detected (NOT DETECT) 12/02/24 02:06 SARS-CoV-2 (PCR) Not detected (NOT DETECT) 12/02/24 02:06 Vitals Last Vital Signs Temp 97.9 F 12/06/24 07:41 Pulse 58 L 12/06/24 08:16 Resp 18 12/06/24 08:16 BP 159/70 12/06/24 07:41 Pulse Ox 97 12/06/24 08:16 O2 Del Method Room Air 12/06/24 08:16 O2 Flow Rate 1 12/06/24 00:14 Discharge Plan Discharge Patient Disposition: Xfer Inpatient Rehab Fac Condition: Stable Prescriptions: New oxycodone 5 mg tablet 5 mg PO Q6H PRN (Reason: pain) 5 Days Qty: 20 0RF amoxicillin-pot clavulanate 875-125 mg Tablet 1 tab PO BID 10 Days Qty: 20 0RF doxycycline monohydrate 100 mg Tablet 100 mg PO BID 10 Days Qty: 20 0RF ipratropium-albuterol 0.5 mg-3 mg(2.5 mg base)/3 mL Solution For Nebulization 3 ml inhalation Q6H PRN (Reason: Shortness Of Breath) Qty: 90 0RF atorvastatin 40 mg Tablet 40 mg PO BEDTIME 30 Days Qty: 30 0RF Continued furosemide 40 mg tablet 40 mg PO DAILY amlodipine 2.5 mg tablet 2.5 mg PO DAILY buspirone 10 mg tablet 10 mg PO BID omeprazole 20 mg capsule,delayed release(DR/EC) 20 mg PO DAILY montelukast 10 mg tablet 10 mg PO DAILY albuterol sulfate 90 mcg/actuation HFA aerosol inhaler 2 puff inhalation Q6H PRN (Reason: Shortness Of Breath) roflumilast 500 mcg tablet 500 mcg PO DAILY Anoro Ellipta 62.5-25 mcg/actuation blister with device 1 inh INHALATION BID Combivent Respimat 20-100 mcg/actuation mist 1 puff INHALATION DAILY pramipexole 0.5 mg tablet 0.5 mg PO BID tamsulosin 0.4 mg capsule 0.4 mg PO DAILY ondansetron 4 mg tablet,disintegrating 4 mg PO Q8H fluticasone propionate 50 mcg/actuation spray,suspension 2 spray INTRANASAL DAILY bupropion HCl 300 mg tablet extended release 24 hr 300 mg PO QAM memantine 10 mg tablet 10 mg PO BID pregabalin 150 mg capsule 150 mg PO Q8H PRN (Reason: nerve pain) desvenlafaxine succinate 100 mg tablet extended release 24 hr 100 mg PO DAILY buprenorphine-naloxone 8-2 mg film 2 film buccal DAILY dapagliflozin propanediol [Farxiga] 10 mg tablet 10 mg PO QAM chlorthalidone 25 mg Tablet 12.5 mg PO DAILY Qty: 30 0RF aspirin 81 mg Tablet,Delayed Release (Dr/Ec) 81 mg PO DAILY Qty: 30 0RF Discharge Orders: Discharge Order (Routine); Ordered 12/06/24 Ordered By: Finn Cottrell Referrals: [facility] [Other] José Luis Marie DPM [Physician] - 12/08/24 10:00 am (APPOINTMENT WITH THE NURSE TO DO DRESSING CHANGE) Milo Herron MD [Physician] - 1 month (pvd) Alecia Miranda FNP [Primary Care Provider] - Discharge Diet: Cardiac Discharge Activity: Resume usual activity Patient Instructions: Acute Wound Care (DC), Opioid Safety, Post Anesthesia Care Activity Restrictions/Additional Instructions: Recommendations from Dr. Marie D.P.M. -No further surgical intervention anticipated during his hospitalization from the podiatry standpoint. -Patient to keep his surgical dressing with posterior splint clean, dry and intact until his follow-up visit outpatient in podiatry clinic scheduled 12/08/2024 7:45 AM. -Recommend 2 weeks of oral antibiotics at discharge per hospitalist. Any questions or concerns in regards to your foot wounds contact podiatry clinic [phone] -Please stop smoking -Please follow-up with cardiology for peripheral vascular disease Discharge Attestations Time Spent in Discharge Care*: greater than 30 min Time Spent in Smoking Cessation: more than 10 minutes Extensive discussion about quitting smoking, concerns for thromboangiitis obliterans, risk of further ischemia, further amputation, morbidity and mortality discussed Status at Discharge: Cognitive status at discharge: mildly impaired cognition, Behavioral status at discharge: cooperative, Quality Metrics Clinical Quality Measures [ No reported AMI, CVA or VTE this stay] Coding Level of Care Code 87051 Total time (in minutes) for Discharge: 45 Diagnoses HTN (hypertension) I10 Peripheral arterial disease I73.9 CKD (chronic kidney disease), stage III N18.30 Hypokalemia E87.6 Cellulitis of right foot L03.115 Sepsis A41.9 Postoperative hypotension I95.81
--- NOTE | 2024-12-06 17:00 | PC.OT ---
OT TREATMENT HELD TODAY DUE TO SCHEDULED PATIENT D/C
[2024-12-06 17:04] LABS: ANA SCREEN, IFA NEGATIVE (NEGATIVE)
[2024-12-06] MEDS: atorvastatin 40 mg Tablet PO (19:53)
--- NOTE | 2024-12-06 20:23 | PC.NURSE ---
TAMEKA BHARDWAJ ARRIVED AT 1999 TO TAKE PT TO [facility]. THIS RN CALLED DAIJA AT [facility] TO GIVE REPORT AND SHE SAID WE ARE NOT ACCEPTING THIS PT TONIGHT WE DO NOT HAVE A DR HERE TO GET ORDERS. THIS RN INFORMED CHARGE, EMS AND PT. THIS RN UPDATED PT AND MADE THE PT COMFORTABLE FOR THE NIGHT. ROYCE FROM [facility] CALLED BACK AND SAID THE PT HAS TO BE HERE BY [phone]. WE WILL ACCEPT TOMORROW. PT IS RESTING COMFORTABLY IN BED AT THIS TIME NOW.
[2024-12-07] VITALS: BP 140/69; PULSE 77; RESP 19; TEMP 36.6; O2SAT 95
[2024-12-07] MEDS: HYDROcodone-acetaminophen 5-325 mg Tablet 1 TAB PO ×2 (01:12→08:45)
[2024-12-07] MEDS: pregabalin 150 mg Capsule PO (01:12)
[2024-12-07 04:00] VITALS: BP 142/66; PULSE 78; RESP 16; TEMP 36.6; O2SAT 95
[2024-12-07 05:30] LABS: Basophils % 0.6 %; Eosinophils % 0.8 %; Hematocrit 32.5 % (37-53); Lymphocytes # 1.6 10^3/uL (0.8-4.8); Lymphocytes % 32.6 %; Mean Corpuscular HGB Conc 31.1 g/dL (30-55); Mean Corpuscular Hemoglobin 27.6 pg (27-33); Mean Corpuscular Volume 88.8 fl (82-101); Mean Platelet Volume 8.7 fL (7.4-10.4); Monocytes # 0.4 10^3/uL (0.2-0.9); Monocytes % 8.5 %; Neutrophils # 2.79 10^3/uL (1.8-7.7); Neutrophils % 56.1 %; Nucleated Red Blood Cells % 0 %; Platelet Count 210 10^3/cmm (157-399); Red Blood Count 3.66 10^6/uL (3.85-5.65); White Blood Count 4.97 10^3/uL (3.29-11.43)
[2024-12-07] MEDS: buPROPion XL (24 HR) 300 mg Tablet PO (05:36)
[2024-12-07 05:57] LABS: Anion Gap 14.4 (5-19); Blood Urea Nitrogen 19 mg/dL (8-23); Calcium 8.5 mg/dL (8.5-10.5); Carbon Dioxide 25 mmol/L (22-29); Chloride 106 mmol/L (98-107); Creatinine Clr Calc Pharmacy 69.5029; Glucose 88 mg/dL (65-115); Osmolality Calculated 294 mOsm/kg (285-295); Potassium 4.4 mmol/L (3.5-5.1); Sodium 141 mmol/L (136-145)
[2024-12-07] MEDS: flu vacc pf 24-25 (6 mos+) SYRINGE 45 MCG IM (06:20)
[2024-12-07 07:57] VITALS: BP 140/69; PULSE 49; RESP 17; TEMP 36.4; O2SAT 97
[2024-12-07] MEDS: montelukast sodium 10 mg Tablet PO (08:42)
[2024-12-07] MEDS: pramipexole 0.25 mg Tablet 0.5 MG PO (08:42)
[2024-12-07] MEDS: desvenlafaxine 50 mg Tablet 100 MG PO (08:42)
[2024-12-07] MEDS: doxycycline 100 mg Tablet PO (08:42)
[2024-12-07] MEDS: aspirin 81 mg EC Tablet PO (08:42)
[2024-12-07] MEDS: roflumilast 500 mcg Tablet PO (08:42)
[2024-12-07] MEDS: memantine 5 mg tablet 10 MG PO (08:42)
[2024-12-07] MEDS: tamsulosin 0.4 mg Capsule PO (08:42)
[2024-12-07] MEDS: BuSPIRONE 10 mg Tablet PO (08:42)
[2024-12-07] MEDS: amoxicillin-clav 875-125 mg Tablet 1 TAB PO (08:42)
[2024-12-07 09:42] VITALS: BP 140/69; PULSE 49; RESP 17; TEMP 36.4; O2SAT 97
[2024-12-07 13:15] LABS: THYROID PEROXIDASE ANTIBODIES <1 IU/mL (<9)
[2024-12-07 14:21] LABS: ANCA Screen NEGATIVE (NEGATIVE)
[2024-12-07 21:35] LABS: DNA AB (DS) CRITHIDIA,IFA NEGATIVE (NEGATIVE)
== END 2024-12-07 09:42 | DRG 854 ==
LOC: ER 17:49 → MEDSURG 18:56 → ICU 12-02 16:01 → MEDSURG 12-03 22:46
PROVIDERS: Anesthesiology; Podiatrist Foot & Ankle Surgery; Admitting Provider Family Medicine; Emergency Provider Emergency Medicine; PCP Nurse Practitioner Family; Visit Provider Family Medicine
PROC: 0Y6T0Z0 Detachment at Right 3rd Toe, Complete, Open Approach (ICD-10-PCS; principal; 2024-12-02 13:00)
DX: A41.9 Sepsis, unspecified organism (principal); L03.116 Cellulitis of left lower limb; N17.9 Acute kidney failure, unspecified; M86.171 Other acute osteomyelitis, right ankle and foot; I73.9 Peripheral vascular disease, unspecified; I12.9 Hypertensive chronic kidney disease with stage 1 through stage 4 chronic kidney disease, or unspecified chronic kidney disease; N18.30 Chronic kidney disease, stage 3 unspecified; E87.6 Hypokalemia; I95.81 Postprocedural hypotension; J44.9 Chronic obstructive pulmonary disease, unspecified; F17.200 Nicotine dependence, unspecified, uncomplicated; N40.0 Benign prostatic hyperplasia without lower urinary tract symptoms; G60.9 Hereditary and idiopathic neuropathy, unspecified; M20.41 Other hammer toe(s) (acquired), right foot; L97.512 Non-pressure chronic ulcer of other part of right foot with fat layer exposed; Z89.421 Acquired absence of other right toe(s); Z90.2 Acquired absence of lung [part of]; Z86.14 Personal history of Methicillin resistant Staphylococcus aureus infection; Z85.118 Personal history of other malignant neoplasm of bronchus and lung; Z79.82 Long term (current) use of aspirin
CPT/HCPCS: 36415; 36416; 71045; 73630; 73700; 80048; 80053; 80074; 80202; 81001; 82550; 82962; 83605; 83735; 83880; 84145; 84443; 84484; 85025; 85378; 85651; 86036; 86140; 86160; 86162; 86235; 86255; 86376; 87040; 87486; 87522; 87581; 87633; 87806; 88305; 88311; 90471; 90686; 92523; 92610; 93005; 93306; 93970; 94664; 96365; 96367; 96372; 96375; 96376; 97161; 97165; 97530; 99285; J0573; J1650; J2270; J2371; J2470; J2543; J2704; J3370; J3480; J3490; J7030; J7050